=== PATIENT | male | born 1955 | race African-American/Black ===

== ENCOUNTER → 2016-08-04 | Outpatient (CLI) | payer OTHER ==
[2016-08-04 09:34] LABS: Aty Lym Flag Slight; CH 29.2; HCT 46.3 % (39.0-53.0); HDW 2.29; HGB 14.1 gm/dL (13.0-17.5); Hypochromasia Slight; MCH 28.8 pg (25.0-35.0); MCHC 30.4 g/dL (31.0-37.0); MCV 94.6 fL (80.0-100.0); Mean Platelet Volume 6.5; RDW 13.7 % (11.5-15.5); WBC 4.7 k/uL (3.8-10.6); WBC (Perox) 4.77
[2016-08-04 09:47] LABS: Add Differential Manual Differential
[2016-08-04 09:51] LABS: Manual Review Performed; Nucleated Red Blood Cells 0 /100 WBC (0-0); Target Cells Present; Total Cells Counted 100
[2016-08-04 09:54] LABS: ALT 39 U/L (21-72); AST 23 U/L (17-59); Alkaline Phosphatase 141 U/L (38-126); Anion Gap 10 mmol/L; Blood Urea Nitrogen 10 mg/dL (9-20); Calcium 9.6 mg/dL (8.4-10.2); Carbon Dioxide 29 mmol/L (22-30); Chloride 103 mmol/L (98-107); Glucose 56 mg/dL (74-99); Non-African American GFR(MDRD) >60 (>60 ml/min/1.73 sqM); Potassium 4.9 mmol/L (3.5-5.1); Sodium 142 mmol/L (137-145); Total Bilirubin 0.8 mg/dL (0.2-1.3); Total Protein 7.5 g/dL (6.3-8.2)
[2016-08-06 15:36] LABS: HCV Qualitative Result DETECTED (Not detected)
== END ==
LOC: LABWHC1 08:34
PROVIDERS: ATTEND Physician Assistant
DX: B18.2 Chronic viral hepatitis C (principal)
CPT/HCPCS: 36415; 80053; 85025; 87522; 87902

== ENCOUNTER 2016-10-14 07:48 | Emergency (ER) | payer OTHER ==
[2016-10-14 07:52] VITALS: BP 129/84; PULSE 80; RESP 20; TEMP 98
[2016-10-14] MEDS ORDERED: HYDROcodone/APAP 5-325MG 1 EACH TAB PO STA (08:14)
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
== END 2016-10-14 08:27 | disposition home or self-care (01) ==
LOC: EC 07:48
DX: G89.29 Other chronic pain (principal); M54.5 Low back pain; F17.200 Nicotine dependence, unspecified, uncomplicated; Z79.899 Other long term (current) drug therapy; Z88.0 Allergy status to penicillin
CPT/HCPCS: 99283

== ENCOUNTER 2017-01-09 10:46 | Emergency (ER) | payer OTHER ==
[2017-01-09 10:53] VITALS: BP 123/87; PULSE 84; RESP 18; TEMP 97
[2017-01-09] MEDS ORDERED: HYDROcodone/APAP 7.5-325MG 1 EACH TAB PO ONE (11:31)
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
== END 2017-01-09 11:57 | disposition home or self-care (01) ==
LOC: EC 10:46
DX: G89.29 Other chronic pain (principal); M54.5 Low back pain; F17.200 Nicotine dependence, unspecified, uncomplicated; Z96.653 Presence of artificial knee joint, bilateral; Z88.0 Allergy status to penicillin; Z88.6 Allergy status to analgesic agent
CPT/HCPCS: 99283

== ENCOUNTER 2017-02-06 16:09 | Emergency (ER) | payer OTHER ==
[2017-02-06] MEDS ORDERED: HYDROcodone/APAP 7.5-325MG 1 EACH TAB PO STA (17:32)
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
[2017-02-06 17:56] VITALS: BP 127/76; PULSE 69; RESP 16; TEMP 98.4
== END 2017-02-06 17:54 | disposition home or self-care (01) ==
LOC: EC 16:09
DX: G89.29 Other chronic pain (principal); M54.9 Dorsalgia, unspecified; F17.200 Nicotine dependence, unspecified, uncomplicated; Z88.0 Allergy status to penicillin; Z88.6 Allergy status to analgesic agent
CPT/HCPCS: 99283

== ENCOUNTER → 2017-02-18 | Outpatient (CLI) | payer OTHER ==
[2017-02-18 11:18] LABS: Aty Lym Flag Slight; CH 28.9; CHCM 30.6; HCT 47.2 % (39.0-53.0); HDW 2.32; HGB 14.6 gm/dL (13.0-17.5); Hypochromasia Slight; MCH 29.5 pg (25.0-35.0); MCV 95.2 fL (80.0-100.0); Mean Platelet Volume 6.6; RBC 4.96 m/uL (4.30-5.90); WBC 3.9 k/uL (3.8-10.6); WBC (Perox) 4.08
[2017-02-18 11:36] LABS: ALT 33 U/L (21-72); AST 25 U/L (17-59); Alkaline Phosphatase 104 U/L (38-126); Anion Gap 9 mmol/L; Blood Urea Nitrogen 12 mg/dL (9-20); Calcium 10.1 mg/dL (8.4-10.2); Carbon Dioxide 29 mmol/L (22-30); Chloride 105 mmol/L (98-107); Glucose 89 mg/dL (74-99); Non-African American GFR(MDRD) >60 (>60 ml/min/1.73 sqM); Potassium 5.1 mmol/L (3.5-5.1); Sodium 143 mmol/L (137-145); Total Bilirubin 0.8 mg/dL (0.2-1.3)
[2017-02-18 14:27] LABS: Add Differential Manual Differential
[2017-02-18 14:31] LABS: Nucleated Red Blood Cells 0 /100 WBC (0-0); Target Cells Present; Total Cells Counted 100
== END | disposition home or self-care (01) ==
LOC: LABWHC1 10:37
PROVIDERS: ATTEND Internal Medicine Gastroenterology
DX: B18.2 Chronic viral hepatitis C (principal)
CPT/HCPCS: 36415; 80053; 85025

== ENCOUNTER → 2017-03-03 | Outpatient (CLI) | payer OTHER ==
--- NOTE | 2017-03-03 20:23 | MR ---
EXAMINATION TYPE: MR lumbar spine wo con DATE OF EXAM: 03/03/2017 COMPARISON: NONE HISTORY: Back pain TECHNIQUE: T1 and T2 axial and sagittal images of the lumbar spine are submitted. FINDINGS: There is no abnormal signal seen within the visualized spinal cord or paraspinal soft tissu es. There are numerous gallstones. Simple bilateral. Renal cysts are noted. At L1-2 there is no disc herniation or canal stenosis. No foraminal encroachment. At L2-3 there is broad-based central disc protrusion with annular tear. Mild bilateral foraminal encr oachment. Facet arthropathy and mild effacement of thecal sac. At L3-4 there is degenerative disc disease with facet arthropathy and circumferential disc bulging bu t no canal stenosis. Mild bilateral foraminal encroachment. At L4-5 there is marked facet arthropathy with minimal grade 1 anterolisthesis. There is ligamentum f lavum hypertrophy which results in lateral compression of the thecal sac. Disc bulging results in mod erate bilateral foraminal encroachment. There is mild to moderate central stenosis. Could not exclude a tiny synovial cyst involving the left facet joint measuring 3 mm. At L5-S1 there is degenerative disc disease with facet arthropathy but no canal stenosis. Mild centra l disc bulging and mild bilateral foraminal encroachment. IMPRESSION: 1. Cholelithiasis. 2. Multilevel degenerative disc disease and facet arthropathy. Broad-based central disc protrusion L2 -L3 results in moderate effacement of thecal sac and bilateral foraminal encroachment. 3. Grade 1 anterolisthesis L4 and L5 secondary to severe facet arthropathy. Disc bulging and hypertro phic changes result in mild to moderate central stenosis and bilateral foraminal encroachment. 4. Central disc bulging L5-S1 with mild effacement of thecal sac and mild bilateral foraminal encroac hment. EXAMINATION TYPE: MR cervical spine wo con DATE OF EXAM: 03/03/2017 COMPARISON: 08/02/2015 HISTORY: Neck pain TECHNIQUE: T1 sagittal and coronal, T2 sagittal, and gradient echo axial views of the cervical spine are submitted. FINDINGS: The cranial cervical junction is preserved. There is no abnormal signal seen within the sp inal cord or paraspinal soft tissues. 2 cm left neck nodule likely related to thyroid nodule. Additio nal right-sided thyroid nodules noted. At C2-3 there is mild degenerative disc disease. No disc herniation or canal stenosis. Mild posterior spondylosis. At C3-4 there is uncovertebral joint hypertrophy bilaterally with posterior disc protrusion and mild effacement of thecal sac. There is facet arthropathy with moderate bilateral foraminal encroachment a nd borderline canal stenosis. At C4-5 there is moderate degenerative disc disease with bilateral uncovertebral joint hypertrophy. C entral and left paracentral broad-based disc protrusion with mild central stenosis and effacement of thecal sac. Uncovertebral joint hypertrophy and facet arthropathy result in moderate to severe bilate ral foraminal encroachment. At C5-6 there is broad-based posterior disc bulging or protrusion with mild effacement of thecal sac. There is facet arthropathy and uncovertebral joint hypertrophy with moderate to severe bilateral for aminal encroachment. At C6-7 there is loss of disc material to his level. There appears be an anterior fusion. There is so me central endplate spurring with mild anterior thecal sac compression At C7-T1 there is no disc herniation or canal stenosis. No foraminal encroachment. IMPRESSION: 1. 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 Multilevel uncovertebral karl int hypertrophy and facet arthropathy contribute to significant bilateral foraminal encroachment at m ultiple levels as discussed above. 2. Stable broad-based disc bulging or protrusion C5-C6 with mild effacement of thecal sac. 3. Stable central and left paracentral broad-based disc protrusion with mild central stenosis C4-C5. 4. Stable posterior disc protrusion C3-C4 with hypertrophic changes contributing to borderline canal stenosis. 5. Multiple bilateral thyroid nodules the largest on the left measuring approximately 2 cm. Correlate with thyroid ultrasound.
== END | disposition home or self-care (01) ==
LOC: RADMRIMAIN 19:04
PROVIDERS: ATTEND Psychiatry & Neurology Pain Medicine
DX: M48.02 Spinal stenosis, cervical region (principal); M48.061 Spinal stenosis, lumbar region without neurogenic claudication; M50.21 Other cervical disc displacement, high cervical region; M51.27 Other intervertebral disc displacement, lumbosacral region; M43.16 Spondylolisthesis, lumbar region; M50.323 Other cervical disc degeneration at C6-C7 level; M51.36 Other intervertebral disc degeneration, lumbar region; M46.92 Unspecified inflammatory spondylopathy, cervical region; M46.96 Unspecified inflammatory spondylopathy, lumbar region; M43.22 Fusion of spine, cervical region
CPT/HCPCS: 72141; 72148

== ENCOUNTER 2017-03-10 10:13 | Emergency (ER) | payer OTHER ==
[2017-03-10 10:20] VITALS: BP 161/93; PULSE 84; RESP 18; TEMP 97.8
[2017-03-10] MEDS ORDERED: HYDROcodone/APAP 5-325MG 1 EACH TAB PO STA (10:44)
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
== END 2017-03-10 11:18 | disposition home or self-care (01) ==
LOC: EC 10:13
DX: G89.29 Other chronic pain (principal); M54.5 Low back pain; F17.200 Nicotine dependence, unspecified, uncomplicated; Z88.0 Allergy status to penicillin; Z88.6 Allergy status to analgesic agent
CPT/HCPCS: 99283

== ENCOUNTER 2017-04-20 08:20 | Emergency (ER) | payer OTHER ==
[2017-04-20 08:24] VITALS: BP 128/83; PULSE 95; RESP 20; TEMP 97.7
--- NOTE | 2017-04-20 08:51 | XR ---
EXAMINATION TYPE: XR wrist complete RT DATE OF EXAM: 04/20/2017 CLINICAL HISTORY: Lateral wrist pain for 2 days. TECHNIQUE: Frontal, lateral, scaphoid, and oblique images of the right wrist are obtained. COMPARISON: None FINDINGS: There is no acute fracture/dislocation evident in the right wrist. The joint spaces in th e right wrist appear within normal limits. The overlying soft tissue appears unremarkable. IMPRESSION: Images of right wrist are felt within normal limits.
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
== END 2017-04-20 09:13 | disposition home or self-care (01) ==
LOC: EC 08:20
DX: M77.9 Enthesopathy, unspecified (principal); G56.01 Carpal tunnel syndrome, right upper limb; F17.200 Nicotine dependence, unspecified, uncomplicated; Z88.0 Allergy status to penicillin; Z88.6 Allergy status to analgesic agent
CPT/HCPCS: 99283

== ENCOUNTER 2017-06-10 08:41 | Emergency (ER) | payer OTHER ==
[2017-06-10 09:16] VITALS: BP 141/75; PULSE 75; RESP 18; TEMP 97.3
[2017-06-10] MEDS ORDERED: LIDOCAINE 5% PATCH TOPICAL STA (09:59)
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
== END 2017-06-10 10:26 | disposition home or self-care (01) ==
LOC: EC 08:41
DX: M54.5 Low back pain (principal); G89.29 Other chronic pain; F17.200 Nicotine dependence, unspecified, uncomplicated; Z88.0 Allergy status to penicillin; Z88.6 Allergy status to analgesic agent
CPT/HCPCS: 99282

== ENCOUNTER 2017-07-11 08:45 | Emergency (ER) | payer OTHER ==
[2017-07-11 08:51] VITALS: BP 117/81; PULSE 85; RESP 18; TEMP 97.1
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
== END 2017-07-11 09:45 | disposition home or self-care (01) ==
LOC: EC 08:45
DX: G89.29 Other chronic pain (principal); M54.5 Low back pain; F17.200 Nicotine dependence, unspecified, uncomplicated; Z88.0 Allergy status to penicillin; Z88.6 Allergy status to analgesic agent
CPT/HCPCS: 99283

== ENCOUNTER → 2017-07-12 | Outpatient (CLI) | payer OTHER ==
[2017-07-12 09:38] LABS: HGB 14.4 gm/dL (13.0-17.5); MCH 28.4 pg (25.0-35.0); MCHC 30.6 g/dL (31.0-37.0); MCV 92.7 fL (80.0-100.0); Mean Platelet Volume 6.6; Platelet Count 271 k/uL (150-450); RBC 5.07 m/uL (4.30-5.90); RDW 13.6 % (11.5-15.5); WBC 4.8 k/uL (3.8-10.6)
[2017-07-12 10:01] LABS: ALT 28 U/L (21-72); AST 29 U/L (17-59); Alkaline Phosphatase 99 U/L (38-126); Anion Gap 9 mmol/L; Blood Urea Nitrogen 13 mg/dL (9-20); Calcium 9.8 mg/dL (8.4-10.2); Carbon Dioxide 30 mmol/L (22-30); Chloride 102 mmol/L (98-107); Cholesterol 153 mg/dL (<200); Glucose 83 mg/dL (74-99); HDL Cholesterol 54 mg/dL (40-60); LDL Cholesterol,Calculated 88 mg/dL (0-99); Potassium 4.7 mmol/L (3.5-5.1); Sodium 141 mmol/L (137-145); Total Bilirubin 0.7 mg/dL (0.2-1.3); Total Protein 7.4 g/dL (6.3-8.2); Triglycerides 55 mg/dL (<150)
[2017-07-12 10:30] LABS: Prostate Specific Antigen 0.22 ng/mL (0.00-4.00)
[2017-07-12 11:31] LABS: Lymphocytes # (M) 3.26 k/uL (1.0-4.8); Monocytes # (M) 0.77 k/uL (0-1.0); Neutrophils # (M) 0.82 k/uL (1.3-7.7); Neutrophils % (M) 17 %; Nucleated Red Blood Cells 0 /100 WBC (0-0); Total Cells Counted 200
[2017-07-12 11:32] LABS: Anisocytosis (M) Present; Poikilocytosis (M) Present; Target Cells Present
== END | disposition home or self-care (01) ==
LOC: LABWHC1 08:53
PROVIDERS: ATTEND Family Medicine
DX: M54.5 Low back pain (principal); F17.210 Nicotine dependence, cigarettes, uncomplicated
CPT/HCPCS: 36415; 80053; 80061; 84153; 85025

== ENCOUNTER 2017-07-17 11:44 | Emergency (ER) | payer OTHER ==
[2017-07-17 11:50] VITALS: BP 109/78; PULSE 103; RESP 20; TEMP 98.6
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
== END 2017-07-17 12:34 | disposition home or self-care (01) ==
LOC: EC 11:44
DX: G89.29 Other chronic pain (principal); M54.5 Low back pain; F17.200 Nicotine dependence, unspecified, uncomplicated; Z76.0 Encounter for issue of repeat prescription; Z88.0 Allergy status to penicillin; Z88.6 Allergy status to analgesic agent
CPT/HCPCS: 99283

== ENCOUNTER 2017-08-19 06:58 | Emergency (ER) | payer OTHER ==
[2017-08-19 07:05] VITALS: BP 126/83; PULSE 71; RESP 16; TEMP 97.3
[2017-08-19] MEDS ORDERED: HYDROcodone/APAP 10-325MG 1 EACH TAB PO ONE (07:26)
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
== END 2017-08-19 07:40 | disposition home or self-care (01) ==
LOC: EC 06:58
DX: G89.29 Other chronic pain (principal); M54.5 Low back pain; F17.200 Nicotine dependence, unspecified, uncomplicated; Z88.0 Allergy status to penicillin; Z88.6 Allergy status to analgesic agent
CPT/HCPCS: 99283

== ENCOUNTER 2017-09-14 08:54 | Emergency (ER) | payer OTHER ==
[2017-09-14 09:01] VITALS: BP 112/79; PULSE 104; RESP 18; TEMP 97.4
[2017-09-14] MEDS ORDERED: HYDROcodone/APAP 5-325MG 1 EACH TAB PO STA (09:23)
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
== END 2017-09-14 09:37 | disposition home or self-care (01) ==
LOC: EC 08:54
DX: G89.29 Other chronic pain (principal); M54.5 Low back pain; F17.200 Nicotine dependence, unspecified, uncomplicated; Z89.612 Acquired absence of left leg above knee; Z88.0 Allergy status to penicillin; Z88.6 Allergy status to analgesic agent
CPT/HCPCS: 99283

== ENCOUNTER 2017-09-21 08:21 | Emergency (ER) | payer OTHER ==
[2017-09-21 08:31] VITALS: BP 111/82; PULSE 84; RESP 18; TEMP 97.7
[2017-09-21] MEDS ORDERED: HYDROcodone/APAP 10-325MG 1 EACH TAB PO ONE (08:37)
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
== END 2017-09-21 08:56 | disposition home or self-care (01) ==
LOC: EC 08:21
DX: G89.29 Other chronic pain (principal); M54.5 Low back pain; F17.200 Nicotine dependence, unspecified, uncomplicated; Z88.0 Allergy status to penicillin; Z88.6 Allergy status to analgesic agent
CPT/HCPCS: 99283

== ENCOUNTER → 2017-11-07 | Outpatient (CLI) | payer OTHER ==
[2017-11-07 10:42] LABS: HGB 13.6 gm/dL (13.0-17.5); MCH 28.8 pg (25.0-35.0); MCHC 31.6 g/dL (31.0-37.0); MCV 91.1 fL (80.0-100.0); Mean Platelet Volume 6.2; Platelet Count 288 k/uL (150-450); RBC 4.72 m/uL (4.30-5.90); RDW 13.6 % (11.5-15.5); WBC 4.3 k/uL (3.8-10.6)
[2017-11-07 10:56] LABS: ALT 33 U/L (21-72); AST 36 U/L (17-59); Albumin 4.3 g/dL (3.5-5.0); Alkaline Phosphatase 108 U/L (38-126); Anion Gap 10 mmol/L; Blood Urea Nitrogen 9 mg/dL (9-20); Calcium 9.6 mg/dL (8.4-10.2); Carbon Dioxide 30 mmol/L (22-30); Chloride 102 mmol/L (98-107); Glucose 88 mg/dL (74-99); Potassium 5.6 mmol/L (3.5-5.1); Sodium 142 mmol/L (137-145); Total Bilirubin 0.7 mg/dL (0.2-1.3); Total Protein 7.6 g/dL (6.3-8.2)
[2017-11-07 11:28] LABS: Eosinophils # (M) 0.04 k/uL (0-0.7); Lymphocytes # (M) 2.58 k/uL (1.0-4.8); Monocytes # (M) 0.56 k/uL (0-1.0); Neutrophils # (M) 1.03 k/uL (1.3-7.7); Neutrophils % (M) 24 %; Nucleated Red Blood Cells 0 /100 WBC (0-0); Plasma Cells # (M) 0.09 k/uL (0); Plasma Cells % 2 %; Total Cells Counted 100
== END | disposition home or self-care (01) ==
LOC: LABWHC1 10:13
PROVIDERS: ATTEND Internal Medicine Gastroenterology
DX: B18.2 Chronic viral hepatitis C (principal)
CPT/HCPCS: 36415; 80053; 82172; 82247; 82977; 83010; 83883; 84460; 85025

== ENCOUNTER → 2017-11-21 | Outpatient (CLI) | payer OTHER ==
[2017-11-21 13:36] LABS: INR 1.2 (<1.2); Prothrombin Time 11.1 sec (9.0-12.0)
== END | disposition home or self-care (01) ==
LOC: LABWHC1 11:58
PROVIDERS: ATTEND Internal Medicine Gastroenterology
DX: B18.2 Chronic viral hepatitis C (principal)
CPT/HCPCS: 36415; 85610; 87522

== ENCOUNTER 2018-01-01 15:36 | Emergency (ER) | payer OTHER ==
[2018-01-01 15:53] VITALS: BP 148/100; PULSE 71; RESP 18; TEMP 98.5
[2018-01-01] MEDS ORDERED: HYDROcodone/APAP 7.5-325MG 1 EACH TAB PO ONE (16:58)
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
== END 2018-01-01 17:15 | disposition home or self-care (01) ==
LOC: EC 15:36
DX: G89.29 Other chronic pain (principal); M54.5 Low back pain; I25.10 Atherosclerotic heart disease of native coronary artery without angina pectoris; F17.200 Nicotine dependence, unspecified, uncomplicated; Z88.0 Allergy status to penicillin; Z88.6 Allergy status to analgesic agent
CPT/HCPCS: 99283

== ENCOUNTER 2018-02-26 08:15 | Emergency (ER) | payer OTHER ==
[2018-02-26 08:20] VITALS: BP 127/90; PULSE 99; RESP 18; TEMP 98
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
--- NOTE | 2018-02-26 09:00 | XR ---
EXAMINATION TYPE: XR shoulder complete LT , 3 VIEWS DATE OF EXAM ORDERED: 02/26/2018 HISTORY: Pain. COMPARISON: None. FINDINGS: There are hypertrophic changes in the left AC joint. No fracture or dislocation is seen. IMPRESSION: 1. NO ACUTE OSSEOUS LESION. 2. DEGENERATIVE CHANGE, LEFT AC JOINT.
== END 2018-02-26 09:26 | disposition home or self-care (01) ==
LOC: EC 08:15
DX: M25.512 Pain in left shoulder (principal); F17.200 Nicotine dependence, unspecified, uncomplicated; Z88.0 Allergy status to penicillin; Z88.6 Allergy status to analgesic agent
CPT/HCPCS: 99283

== ENCOUNTER → 2018-03-21 | Outpatient (CLI) | payer OTHER ==
[2018-03-21 08:17] LABS: HCT 46.3 % (39.0-53.0); HGB 14.1 gm/dL (13.0-17.5); Hypochromasia Slight; MCH 28.7 pg (25.0-35.0); MCHC 30.5 g/dL (31.0-37.0); MCV 94.2 fL (80.0-100.0); Mean Platelet Volume 6.5; Platelet Count 334 k/uL (150-450); RBC 4.92 m/uL (4.30-5.90); RDW 13.4 % (11.5-15.5); WBC 4.5 k/uL (3.8-10.6)
[2018-03-21 08:18] LABS: ALT 44 U/L (21-72); AST 57 U/L (17-59); Albumin 3.7 g/dL (3.5-5.0); Alkaline Phosphatase 282 U/L (38-126); Anion Gap 4 mmol/L; Blood Urea Nitrogen 11 mg/dL (9-20); Calcium 9.7 mg/dL (8.4-10.2); Carbon Dioxide 31 mmol/L (22-30); Chloride 104 mmol/L (98-107); Glucose 95 mg/dL (74-99); Potassium 5.6 mmol/L (3.5-5.1); Sodium 139 mmol/L (137-145); Total Bilirubin 0.5 mg/dL (0.2-1.3); Total Protein 7.3 g/dL (6.3-8.2)
--- NOTE | 2018-03-21 08:52 | US ---
EXAMINATION TYPE: US liver DATE OF EXAM: 03/21/2018 COMPARISON: CT abdomen pelvis dated 07/24/2015 and abdominal ultrasound dated 12/13/2015. CLINICAL HISTORY: B18.2 CHR VIRAL HEP C. EXAM MEASUREMENTS: Liver Length: 14.6 cm Gallbladder Wall: 0.2 cm CBD: 1.0 cm Right Kidney: 10.9 x 6.0 x 3.9 cm Pancreas: dilated pancreatic duct at 2.7mm within the pancreatic body; dilated CBD in pancreatic hea d Liver: There is a slightly coarsened echotexture of the hepatic parenchyma without lobulated contour. Gallbladder: multiple shadowing stones with some mobility into fundus, but stones still seen in neck in LLD position Evidence for sonographic Vela's sign: no CBD: abnormally dilated throughout its course Right Kidney: multiple cysts with largest complex cyst in lower pole = 2.1 x 2.5 x 2.4cm. Containing thin internal septations IMPRESSION: 1. Progressive dilatation of the common bile duct and pancreatic duct raising suspicion for underlyin g pancreatic. Three-phase CT abdomen (pancreatic mass protocol) is recommended to evaluate for pancre atic head mass. Or alternatively MRCP with and without contrast could be utilized to assess for both pancreatic mass and etiology of common bile duct dilation. 2. Cholelithiasis. 3. Right renal cysts the largest in the lower pole measuring 2.5 cm with thin septations for which co ntinued surveillance is recommended. This measured 2.1 cm on the prior CT dated 07/24/2015. 4. Findings of early hepatocellular disease. No findings to suggest current cirrhosis. A Yellow level critical message alert has been initiated for Yoli Chandler MD via the [employer] Critical Results System on 03/21/2018 8:49 AM. This message alert has been sent to Yoli Chandler MD via the preferences provided by the clinician for the receipt of Radiology Critical Findings. Mess age ID [id number].
[2018-03-21 10:21] LABS: Eosinophils # (M) 0.05 k/uL (0-0.7); Lymphocytes # (M) 2.21 k/uL (1.0-4.8); Monocytes # (M) 0.81 k/uL (0-1.0); Neutrophils # (M) 1.44 k/uL (1.3-7.7); Neutrophils % (M) 32 %; Nucleated Red Blood Cells 0 /100 WBC (0-0); Total Cells Counted 100
== END | disposition home or self-care (01) ==
LOC: RADUSWWP 07:05
PROVIDERS: ATTEND Internal Medicine Gastroenterology
DX: K80.20 Calculus of gallbladder without cholecystitis without obstruction (principal); N28.1 Cyst of kidney, acquired; K83.8 Other specified diseases of biliary tract; B18.2 Chronic viral hepatitis C
CPT/HCPCS: 36415; 76705; 80053; 82105; 85025

== ENCOUNTER → 2018-03-23 | Outpatient (CLI) | payer OTHER ==
--- NOTE | 2018-03-23 09:36 | MR ---
EXAMINATION TYPE: MR shoulder LT wo con DATE OF EXAM: 03/23/2018 COMPARISON: Radiographs 02/26/2018 HISTORY: 62-year-old male Pain left shoulder TECHNIQUE: Multiplanar, multisequence imaging of the left shoulder is performed without contrast. The technologist notes that the scan was restarted multiple times due to persistent coughing. FINDINGS: Motion limited exam. Mild heterogeneous signal within the intracapsular portion of the long head biceps tendon. The extrac apsular portion remains appropriately situated along the bicipital groove. There is heterogeneity of the subscapularis tendon with some partial articular sided tearing of the s uperior half fibers. The majority of the subscapularis tendon remains intact. There is diffuse heterogeneity of both supraspinatus and infraspinatus tendons. There is bursal sided fraying of the infraspinatus tendon and bursal sided tearing at the junction of the supraspinatus an d infraspinatus tendons measuring 1.7 cm AP and 2.5 cm long located directly below the acromion, prox imal to the footprint. This causes significant thinning of the tendon at this level. Located just anteriorly, there is suggestion of a 1.7 x 1.5 cm multilocular ganglion that has develop ed along the subacromial bursa. No retracted, full-thickness tear is identified at this time. Additional mild effusion within the subacromial/subdeltoid bursa. No atrophy of the rotator cuff musc ulature. Moderate to severe degenerative joint space narrowing and marginal spurring at the acromial clavicula r joint. Some reactive subchondral marrow signal changes are present and inferior spurring has mass e ffect on to the underlying myotendinous junction of the supraspinatus. No discrete labral tear given nonarthrographic technique and no paralabral cyst. Mild diffuse thinnin g of glenohumeral joint articular cartilage. No significant joint effusion. No Hill-Sachs deformity or os acromiale. Mild patchy red marrow hyperplasia is present contributing in the setting of anemia, smoking, and chr onic disease. IMPRESSION: 1. Diffuse rotator cuff tendinosis. There is bursal sided fraying of the supraspinatus tendon and pro minent thinning of the cuff at the junction of the supraspinatus and infraspinatus tendons secondary to bursal sided tearing measuring 1.7 cm AP and 2.5 cm long located directly below the acromion, prox imal to the footprint. No retracted full-thickness tear at this time. 2. Some partial articular sided tearing of some of the superior subscapularis tendon fibers. The modesto rity of the subscapularis tendon remains intact. 3. No rotator cuff muscle atrophy. 4. 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 5. Mild subacromial/subdeltoid bursal effusion with a 1.7 x 1.5 cm multilocular ganglion cyst that velasco s developed along the anterior margin of the supraspinatus tendon.
== END | disposition home or self-care (01) ==
LOC: RADMRIMAIN 07:15
PROVIDERS: ATTEND Internal Medicine
DX: M19.012 Primary osteoarthritis, left shoulder (principal); M75.112 Incomplete rotator cuff tear or rupture of left shoulder, not specified as traumatic; M67.412 Ganglion, left shoulder; M75.82 Other shoulder lesions, left shoulder

== ENCOUNTER 2018-04-21 11:53 | Emergency (ER) | payer OTHER ==
[2018-04-21 11:59] VITALS: BP 146/90; PULSE 83; RESP 18; TEMP 97.5
[2018-04-21] MEDS ORDERED: KETOROLAC 60 MG/2 ML VIAL IM STA (12:24)
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
--- NOTE | 2018-04-21 13:04 | XR ---
EXAMINATION TYPE: XR lumbar spine 2 or 3V DATE OF EXAM: 04/21/2018 CLINICAL HISTORY: pain TECHNIQUE: Three views of the lumbar spine are submitted. COMPARISON: None. FINDINGS: There are 5 lumbar type vertebral bodies identified. The lumbar spine shows satisfactory alignment w ithout evidence of acute fracture or dislocation. Vertebral body heights are within normal limits. Mild degenerative disc space narrowing. Mild lower lumbar facet joint arthropathy. The overlying sof t tissue appears unremarkable. Multiple right-sided renal calculi noted. IMPRESSION: No acute fracture or dislocation is seen in the lumbar spine. ICD 10 NO FRACTURE, INITIAL EVALUATION
== END 2018-04-21 13:45 | disposition home or self-care (01) ==
LOC: EC 11:53
DX: M54.5 Low back pain (principal); F17.200 Nicotine dependence, unspecified, uncomplicated; Z88.0 Allergy status to penicillin; Z88.6 Allergy status to analgesic agent
CPT/HCPCS: 72100; 96372; 99284

== ENCOUNTER → 2018-08-22 | Outpatient (CLI) | payer OTHER ==
[2018-08-22 17:56] LABS: HCT 43.3 % (39.0-53.0); HGB 13.6 gm/dL (13.0-17.5); Hypochromasia Slight; MCH 29.1 pg (25.0-35.0); MCHC 31.3 g/dL (31.0-37.0); MCV 92.9 fL (80.0-100.0); Mean Platelet Volume 6.8; Platelet Count 256 k/uL (150-450); RBC 4.66 m/uL (4.30-5.90); RDW 14.5 % (11.5-15.5); WBC 4.6 k/uL (3.8-10.6)
[2018-08-22 18:10] LABS: Anion Gap 5 mmol/L; Blood Urea Nitrogen 8 mg/dL (9-20); Carbon Dioxide 31 mmol/L (22-30); Chloride 105 mmol/L (98-107); Potassium 5.1 mmol/L (3.5-5.1); Sodium 141 mmol/L (137-145)
== END ==
LOC: LABPAT 16:32
PROVIDERS: ATTEND Internal Medicine Interventional Cardiology
DX: Z01.812 Encounter for preprocedural laboratory examination (principal); I49.8 Other specified cardiac arrhythmias; I42.9 Cardiomyopathy, unspecified
CPT/HCPCS: 36415; 80051; 82565; 84520; 85027

== ENCOUNTER 2018-08-24 11:02 | Day surgery (SDC) | payer OTHER ==
[2018-08-22 09:22] VITALS: BMI 21.9
[~2018-08-24 11:02] MED LIST: ALPRAZolam 0.25 MG TAB PO PRN; ALPRAZolam 0.5 MG TAB PO PRN; ASPIRIN 325 MG TAB PO STA; ATORVASTATIN 80 MG TAB PO STA; NITROGLYCERIN SL TABS 0.4 MG TAB SUBLINGUAL PRN; SODIUM CHLORIDE 0.9% 1,000 ML in EMPTY BAG 1 BAG IV ONE
[2018-08-24] MEDS ORDERED: SODIUM CHLORIDE 0.9% 1,000 ML IV ONE (11:19)
[2018-08-24 11:35] VITALS: RESP 16; TEMP 98.1
[2018-08-24] MEDS ORDERED: fentaNYL (PF) 50 MCG/ML 2 ML AMP IV ONE (12:29)
[2018-08-24] MEDS ORDERED: LIDOCAINE 1% INJ 10MG/ML (20 ML MDV) SQ ONE (12:34)
[2018-08-24] MEDS: MIDAZOLAM 2 MG/2 ML VIAL IV ONE ×2 (12:34→12:37)
[2018-08-24] MEDS ORDERED: VERAPAMIL SYRINGE (5 MG/10 ML) INTRAARTER ONE (12:36)
[2018-08-24] MEDS ORDERED: IOPAMIDOL-370 125ML BTL INJ ONE (12:52)
[2018-08-24] MEDS ORDERED: RX INFO: IV CONTRAST WAS GIVEN 1 EACH MISC MISCELLANE PRN (13:05)
[2018-08-24] MEDS ORDERED: HYDROcodone/APAP 7.5-325MG 1 EACH TAB PO PRN (13:06)
[2018-08-24] MEDS ORDERED: SODIUM CHLORIDE 0.9% 1,000 ML IV SCH (13:15)
[2018-08-24] MEDS ORDERED: METOPROLOL TARTRATE 50 MG TAB ONE (13:18)
--- NOTE | 2018-08-24 13:33 | CC ---
CARDIAC CATHETERIZATION REPORT Mr. Nation is a 63-year-old male with a history of smoking and no prior documented history of coronary artery disease who was evaluated to undergo surgical intervention and was found to have frequent atrial arrhythmia with evidence of cardiomyopathy and inferior wall defect. In view of that, recommendations were made regarding cardiac catheterization. The procedure as well as the risks and complications were discussed with the patient who is in full understanding and agreement. PROCEDURE: Patient was brought to the laboratory chemist in a fasting semi-sedated state after receiving fentanyl and Benadryl and achieving moderate conscious sedated state. Using Xylocaine anesthesia in the Seldinger technique, a 6-Cambodian sheath was introduced in the right radial artery. Selective right and left coronary angiography were performed using 5- Cambodian 3.5 bend right Caro and 4 bend left Caro catheters. Multiple views of the coronary artery including hemiaxial views were obtained. Following that 5-Cambodian tight pigtail catheter was introduced in the left ventricle and a 30-degree CARREON view of the left ventricle was obtained. Following that, the catheter and sheaths were removed. Hemostasis was obtained with deployment of a TR band. There was no immediate complication. Patient was returned to his room in stable condition. Of note, the patient received 4000 units of intravenous heparin as well as intra-arterial verapamil. FINDINGS: LEFT MAIN: This is a large-sized vessel bifurcating left circumflex and left anterior descending artery. Left main coronary artery has no evidence of significant obstructive coronary artery disease. LEFT ANTERIOR DESCENDING ARTERY: This is a large-sized vessel reaching to the apex with a wraparound apex segment giving rise to 2 small diagonal branches. Left anterior descending artery as well as branches have no evidence of obstructive coronary artery disease. LEFT CIRCUMFLEX: This is a nondominant vessel giving rise to 2 obtuse marginal branches of moderate caliber. The left circumflex has no evidence of high-grade stenosis. RIGHT CORONARY ARTERY: This is a dominant vessel giving rise to a small PDA. The right coronary artery and its branches have no evidence of obstructive coronary artery disease. LEFT VENTRICULOGRAM: The left ventriculogram was performed in 30-degree CARREON view and revealed normal left ventricular size with moderate global hypokinesis. Estimated ejection fraction 40% to 45%. A significant arrhythmia was noted. HEMODYNAMICS: There was no gradient across the aortic valve. The left ventricular end- diastolic pressure was 12 mmHg. CONCLUSION: 1. Normal coronary arteries. 2. Moderately impaired left ventricular systolic function. The evaluation of left ventricular systolic function could be affected by the arrhythmia. RECOMMENDATION: In view of finding anatomy, I recommend continue medical therapy with increase in his beta yenny and depending on his progress, further recommendation will be made. Those findings and recommendation were discussed with the patient and his family are in full understanding and agreement. Duration of procedure is 20 minutes. NURIA / LILLIE: [id number] /
[2018-08-24] MEDS ORDERED: GABAPENTIN 300 MG CAP PO SCH (16:00)
[2018-08-24 17:33] VITALS: BP 107/72; PULSE 98
[2018-08-24] MEDS ORDERED: BACLOFEN 10 MG TAB PO SCH (21:00)
[2018-08-24] MEDS ORDERED: METOPROLOL TARTRATE 25 MG TAB PO SCH (21:00)
== END 2018-08-24 18:30 | disposition home or self-care (01) ==
LOC: CATHCVL 11:02
PROVIDERS: ATTEND Internal Medicine Interventional Cardiology
DX: I42.9 Cardiomyopathy, unspecified (principal); I49.8 Other specified cardiac arrhythmias; Z79.899 Other long term (current) drug therapy; F17.210 Nicotine dependence, cigarettes, uncomplicated; Z88.0 Allergy status to penicillin
CPT/HCPCS: 93458; C1894; C1769; J2250; J2001; J3010; J1644; Q9967

== ENCOUNTER → 2018-09-15 | Day surgery (SDC) | payer OTHER ==
[2018-08-21 12:45] VITALS: BMI 21.9
[~2018-09-15] MED LIST changes: -ALPRAZolam 0.25 MG TAB PO PRN; -ALPRAZolam 0.5 MG TAB PO PRN; -ASPIRIN 325 MG TAB PO STA; -ATORVASTATIN 80 MG TAB PO STA; +CLINDAMYCIN 900 MG in DEXTROSE 5% IN WATER 50 ML IVPB ONE; +DEXAMETHASONE SOD PHOSPHATE 10 MG/ML 1 ML VIAL IV ONE; +DEXAMETHASONE SOD PHOSPHATE 4 MG/ML 1 ML VIAL ONE; +EPINEPHrine 4 MG in SODIUM CHLORIDE 0.9% IRRIGATIO 3,000 ML IRRIGATION ONE; +HYDROcodone/APAP 7.5-325MG 1 EACH TAB PO ONE; +LACTATED RINGERS 1,000 ML IV ONE; +LACTATED RINGERS 1,000 ML IV SCH; +LIDOCAINE 1% 20 ML VIAL (10MG/ML) FOR IV START INTRADERMA ONE; +LIDOCAINE 1% INJ 10MG/ML (20 ML MDV) ONE; +MIDAZOLAM (PF) 2 MG/2 ML VIAL IV PRN; +MIDAZOLAM 2 MG/2 ML VIAL ONE; -NITROGLYCERIN SL TABS 0.4 MG TAB SUBLINGUAL PRN; +ONDANSETRON 4 MG/2 ML VIAL IVP ONE; +PHENYLEPHRINE-0.9% NACL SYG 1 MG/10 ML SYRINGE ONE; +PROPOFOL 10 MG/ML 20 ML VIAL IV ONE; +ROPIVACAINE 5 MG/ML 30 ML VIAL ONE; +SCOPOLAMINE 1.5MG/72HR PATCH TRANSDERM ONE; -SODIUM CHLORIDE 0.9% 1,000 ML in EMPTY BAG 1 BAG IV ONE; +SUCCINYLCHOLINE CHLORIDE 100 MG/5 ML SYR IV ONE; +fentaNYL (PF) 50 MCG/ML 2 ML AMP IV ONE; +fentaNYL (PF) 50 MCG/ML 2 ML AMP ONE
--- NOTE | 2018-09-15 12:17 | P.ONQ ---
Anesthesiology Proc Note - PNB - Peripheral Nerve Block Performed Left Interscalene Single Time Out Performed: Yes Procedure Start Time: 11:45 Procedure Stop Time: :55 Indication: Requested by physician Specifically requested for management of pain by DrFernando: Solis Hawthorne Sedation Type: Sedate with meaningful contact maintained Preparation: Sterile Prep Position: Supine Needle Types: Other (see comment) (PUJUNK) Needle Size: 50mm (2") Needle Gauge: 21 Technique: Ultrasound Injectate: 0.5% Ropivacaine (see comment for volume) (20 ml plus 4 mg Dexamethason) Blood Aspirated: No Pain Paresthesia on Injection Noted: No Resistance on Injection: Normal Events: Uneventful and Well Tolerated
[2018-09-15 13:42] VITALS: TEMP 97
[2018-09-15] MEDS: HYDROmorphone 0.5 MG/0.5 ML SYRINGE IVP PRN ×2 (14:32→14:40)
[2018-09-15 14:55] VITALS: RESP 17
[2018-09-15 15:12] VITALS: BP 124/78; PULSE 66
--- NOTE | 2018-09-15 17:00 | P.OP ---
Date of Procedure: 09/15/18 Procedure(s) Performed: left shoulder scope SAD PDCE labral debridement partial rct debridement (bursal and articular surface supra, articular superior border subscap) PREOPERATIVE DIAGNOSES: 1. Left shoulder impingement 2. Subacromial bursitis 3. Rotator cuff tendinopathy 4. Acromioclavicular osteoarthritis POSTOPERATIVE DIAGNOSES: 1. Left shoulder impingment with subacromial moderate-severe bursitis and subacromial adhesions 2. Superior labral degenerative/type I tear 3. Partial rotator cuff tear (supraspinatus and subscapularis, articular surface 2-3 mm depth; supraspinatus bursal side 2-3 mm depth) PROCEDURES PERFORMED: 1. Left shoulder arthroscopy with partial distal clavicle excision 2. Arthroscopic debridement superior labral degenerative tear and partial tear of rotator cuff 3. Arthroscopic lysis of adhesions subacromial space 4. Arthroscopic subacromial decompression ANESTHESIA: General plus interscalene block (given for post-operative pain management) ELECTRONIC TECHNICIAN: None COMPLICATIONS: None ESTIMATED BLOOD LOSS: 5 cc TOURNIQUET: None DISPOSITION: To post-anesthesia care unit INDICATIONS: Mónica is a 63 year old male with a history of pain in the left shoulder that has been resistant to conservative management. He has signs and symptoms consistent with a possible rotator cuff or labral etiology. There is mild impingement also noted on exam and findings consistent with this on MRI. At this point the patient has failed conservative management and I have advised a diagnostic arthroscopy with the plan to repair or optimize the condition of the shoulder if possible. I have explained the details of this surgery thoroughly and also explained the potential risks and complications. These are inclusive of, but not limited to: bleeding, infection, scarring, discomfort, blood vessel and nerve damage, stiffness, weakness, need for further surgery, failure to relieve symptoms, persistence or worsening of problems, , and other risks. The consent form has been signed. PROCEDURE: Appropriate consent was obtained from the patient, who was then taken to the operating room and placed in the supine position. General anesthesia was initiated and after confirmation of adequate anesthesia, the patients shoulder was examined. There was full passive range of motion. The shoulder was stable. Next, the patient was rotated into the lateral decubitus position and stabilized to the table with a wang bag and padded straps. Care was taken to make sure that all pressure points were adequately padded. Bear-hugger was used along with bilateral leg sequential compression devices. Prepping and draping was completed in the usual aseptic fashion using Duraprep. The patient received prophylactic intravenous antibiotics prior to incision. The shoulder was suspended from traction with 10 lbs. of weight in a position of 45 degrees abduction. Landmarks were outlined with a skin marking pen. Time out was called, confirming patients identity, side, procedure, and antibiotic administration. A spinal needle was inserted into the glenohumeral joint and fluid was administered to distend the joint. Good pressure was noted after 100 cc was administered. A posterior portal was created using an 11 blade and the arthroscopic canula, over a dull trocar, was carefully inserted into the joint. Arthroscopy then commenced. An anterior portal was inserted in the rotator interval area using inside-out technique. Biceps tendon was normal. Infraspinatus, supraspinatus, and teres minor attachments were normal. Subscapularis had a degenerative appearing superior border partial tear which was debrided using a shaver. Hyaline cartilage was noted to be normal with regard to both the glenoid and humeral head. Supraspinatus showed a partial tear on the articular surface, and with probing and removal of the loose fibers via a shaver this was noted to be 2-3 mm depth. A spinal needle was used to zari the location of the tear for inspection of the bursal side. Labrum showed evidence of moderate degenerative change superiorly. The superior labrum was debrided back to stable tissue using a shaver and the labrum had a significantly improved appearance once this was performed. Thorough probing of the labrum showed good attachment without evidence of peel back. Subscapularis recess and axillary recess were normal. No significant synovitis was seen. Normal capsular ligaments (SGHL, MGHL, IGHL) were seen. Attention was then directed to the subacromial space. The camera and instruments were redirected into the subacromial space and bursoscopy was performed. Significant bursitis was noted . A lateral portal was created using outside-in technique and the thickened bursal material was removed using a rotary shaver. The spinal needle was identified and the area was thoroughly inspected around the spinal needle . No evidence of full-thickness rotator cuff tear was seen, however, there was evidence of partial-thickness tearing within the bursa likely consistent with chronic impingement syndrome The bursal surface of the rotator cuff was fully visualized and found to be intact throughout, except for some very mild superficial fraying of the critical zone area, which was noted to be quite near the acromion. There was less than 5 mm of space available between the undersurface of the acromion and the rotator cuff. The undersurface of the acromion had minor frictional changes consistent with minor impingement syndrome. The underside of the anterior acromion was cleared of soft tissue using an arthroscopic radiofrequency ablator. As noted previously, there were mild frictional changes on the bursal side of the cuff. A limited subacromial decompression was performed using a nicole. Approximately 5 mm of material was removed from the anterior-inferior corner of the acromion. This resection was beveled upwards laterally, and carried medially to the AC joint. The distal clavicle appeared to have a contributing downward ridge at the margin of the acromioclavicular joint, and therefore this ridge of bone was removed using a nicole, amounting to proximally 5 mm of clavicle tissue. Subsequently, 4-0 Monocryl suture was used to close the portals. Steri- strips were applied as well as sterile dressing. The shoulder was then placed into a sling and the patient was transferred to recovery room in stable condition. Sponge and needle count were correct.
== END | disposition home or self-care (01) ==
LOC: OR 10:57
PROVIDERS: ATTEND Orthopaedic Surgery
DX: M75.112 Incomplete rotator cuff tear or rupture of left shoulder, not specified as traumatic (principal); M75.42 Impingement syndrome of left shoulder; S43.432A Superior glenoid labrum lesion of left shoulder, initial encounter; M75.02 Adhesive capsulitis of left shoulder; M19.012 Primary osteoarthritis, left shoulder; I10 Essential (primary) hypertension; M50.10 Cervical disc disorder with radiculopathy, unspecified cervical region; Z89.512 Acquired absence of left leg below knee; F17.200 Nicotine dependence, unspecified, uncomplicated; Z79.891 Long term (current) use of opiate analgesic; Z79.899 Other long term (current) drug therapy; Z88.0 Allergy status to penicillin; Z88.8 Allergy status to other drugs, medicaments and biological substances
CPT/HCPCS: 64415; 29823; 29824; 29826; J0171; J2250 ×2; J1100 ×2; J2405; J2001; J3010; J2795; J2370; J0330; J2704; J1170

== ENCOUNTER → 2018-11-10 | Outpatient (CLI) | payer OTHER ==
[2018-11-10 17:09] LABS: African American GFR (CKD) 116.4 (60.0-200.0); Albumin 4.1 g/dL (3.80-4.90); Albumin/Globulin Ratio 1.21 (1.60-3.17); Anion Gap 5.4 mmol/L (4.00-12.00); Calcium 9.5 mg/dL (8.7-10.3); Carbon Dioxide 28.6 mmol/L (21.6-31.8); Globulin 3.4 g/dL (1.6-3.3); Potassium 5.1 mmol/L (3.5-5.5); Total Bilirubin 0.7 mg/dL (0.3-1.2); Total Protein 7.5 g/dL (6.2-8.2)
== END | disposition home or self-care (01) ==
LOC: LABWHC1 09:10
PROVIDERS: ATTEND Physician Assistant
DX: Z51.81 Encounter for therapeutic drug level monitoring (principal); Z79.891 Long term (current) use of opiate analgesic
CPT/HCPCS: 36415; 80053

== ENCOUNTER → 2018-12-13 | Outpatient (CLI) | payer OTHER ==
--- NOTE | 2018-12-14 07:12 | US ---
EXAMINATION TYPE: US thyroid st tissue head/neck DATE OF EXAM: 12/13/2018 COMPARISON: MRI 2019 CLINICAL HISTORY: R93.8 Abnormal MRI images-thyroid cyst?. Left thyroid lesion seen on previous MRI GLAND SIZE: Right Lobe: 6.5 x 1.9 x 2.4 cm Overall Parenchyma: heterogenous Left Lobe: 5.9 x 3.2 x 2.2 cm Overall Parenchyma: heterogeneous Isthmus Thickness: 0.4 cm NODULES RIGHT: # of nodules measured on right: 3 1. 1.6 X 0.9 x 1.4 cm hypoechoic solid nodule at the upper pole with well-defined margins. This nod ule is wider than tall and shows intranodular vascularity. Prior size: no previous 2. 1.2 X 1.3 x 1.4 cm hypoechoic mixed nodule at the mid pole with well-defined margins. This nodule is wider than tall and shows intranodular vascularity. Prior size: no previous 3. 0.9 X 0.5 x 1.0 cm hypoechoic solid nodule at the lower pole with well-defined margins. This nodu le is wider than tall and shows intranodular vascularity. Prior size: no previous LEFT: # of nodules measured on left: 2 1. 1.1 X 0.5 x 0.9 cm hypoechoic solid nodule at the upper pole with well-defined margins. This nod ule is wider than tall and shows intranodular vascularity. Prior size: no previous 2. 3.9 X 2.8 x 2.3 cm hypoechoic mixed nodule at the mid pole with well-defined margins. This nodule is taller than wide and shows intranodular vascularity. Prior size: no previous ISTHMUS: # of nodules measured in the isthmus: 0 Bilateral neck scanned, no evidence of lymphadenopathy. IMPRESSION: Complex 3.9 cm left thyroid nodule for which fine-needle aspiration is recommended. Multiple addition al smaller nodules are seen bilaterally for which surveillance could be performed. Overall thyroid gl and is enlarged and heterogenous compatible with a multinodular goiter.
== END | disposition home or self-care (01) ==
LOC: RADUSWWP 16:15
PROVIDERS: ATTEND Internal Medicine
DX: E04.2 Nontoxic multinodular goiter (principal)
CPT/HCPCS: 76536

== ENCOUNTER 2019-02-08 08:58 | Emergency (ER) | payer OTHER ==
[2019-02-08] MEDS ORDERED: KETOROLAC 60 MG/2 ML VIAL IM STA (10:26)
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
--- NOTE | 2019-02-08 11:28 | XR ---
Lumbosacral spine HISTORY: Back pain, trauma 5 views of lumbosacral spine correlated to prior exam 04/21/2018 There is no interval change. Overlying bowel gas on the frontal exam. Multiple calcifications are lik yi present within the right kidney. No evident spondylolysis or spondylolisthesis. Bone mineralizati on, alignment, vertebral body height are unchanged. Mild loss of disc height L4-5 and L5-S1, minimal anterolisthesis grade 1 L4-5, retrolisthesis grade 1 L5-S1. There is multilevel spondylosis. Sclerosi s present in the posterior elements compatible with facet arthropathy. IMPRESSION: No acute fracture or subluxation. Degenerative disc disease and facet arthropathy.
[2019-02-08 12:16] VITALS: BP 132/56; PULSE 67; RESP 20; TEMP 98.6
== END 2019-02-08 12:15 | disposition home or self-care (01) ==
LOC: EC 08:58
DX: S30.0XXA Contusion of lower back and pelvis, initial encounter (principal); F17.200 Nicotine dependence, unspecified, uncomplicated; Z88.0 Allergy status to penicillin; Z88.6 Allergy status to analgesic agent; Z79.899 Other long term (current) drug therapy; Z89.512 Acquired absence of left leg below knee; W10.9XXA Fall (on) (from) unspecified stairs and steps, initial encounter; Y93.89 Activity, other specified
CPT/HCPCS: 72110; 99283; 96372; J1885

== ENCOUNTER → 2019-03-01 | Outpatient (CLI) | payer OTHER ==
[2019-03-01 10:07] LABS: Basophils # (A) 0.1 k/uL (0-0.2); Basophils % (A) 2 %; Eosinophils % (A) 1 %; HCT 42.9 % (39.0-53.0); HGB 13.1 gm/dL (13.0-17.5); Lymphocytes # (A) 1.1 k/uL (1.0-4.8); Lymphocytes % (A) 18 %; MCH 29.1 pg (25.0-35.0); MCHC 30.6 g/dL (31.0-37.0); MCV 95.3 fL (80.0-100.0); Mean Platelet Volume 6.4; Monocytes # (A) 0.3 k/uL (0-1.0); Monocytes % (A) 5 %; Neutrophils # (A) 4.5 k/uL (1.3-7.7); Neutrophils % (A) 73 %; Platelet Count 226 k/uL (150-450); WBC 6.1 k/uL (3.8-10.6)
[2019-03-01 18:08] LABS: African American GFR (CKD) 110.2 (60.0-200.0); Albumin 4.1 g/dL (3.80-4.90); Albumin/Globulin Ratio 1.37 (1.60-3.17); Anion Gap 7.7 mmol/L (4.00-12.00); Calcium 9.4 mg/dL (8.7-10.3); Carbon Dioxide 27.3 mmol/L (21.6-31.8); Potassium 4.8 mmol/L (3.5-5.5); Total Bilirubin 1.2 mg/dL (0.3-1.2); Total Protein 7.1 g/dL (6.2-8.2)
== END | disposition home or self-care (01) ==
LOC: LABWHC1 09:07
PROVIDERS: ATTEND Internal Medicine Gastroenterology
DX: B18.2 Chronic viral hepatitis C (principal)
CPT/HCPCS: 36415; 80053; 85025; 87522

== ENCOUNTER → 2019-05-24 | Outpatient (CLI) | payer OTHER ==
[2019-05-24 18:38] LABS: African American GFR (CKD) 116.4 (60.0-200.0); Albumin 4.2 g/dL (3.80-4.90); Albumin/Globulin Ratio 1.45 (1.60-3.17); Anion Gap 3.5 mmol/L (4.00-12.00); BUN/Creat Ratio 12.86 Ratio (12.00-20.00); Calcium 9.4 mg/dL (8.7-10.3); Carbon Dioxide 30.5 mmol/L (21.6-31.8); Globulin 2.9 g/dL (1.6-3.3); Non-African American GFR(CKD) 100.4 (60.0-200.0); Potassium 4.8 mmol/L (3.5-5.5); Total Bilirubin 0.6 mg/dL (0.3-1.2); Total Protein 7.1 g/dL (6.2-8.2)
== END | disposition home or self-care (01) ==
LOC: LABWHC1 13:31
PROVIDERS: ATTEND Physician Assistant
DX: Z51.81 Encounter for therapeutic drug level monitoring (principal); Z79.891 Long term (current) use of opiate analgesic
CPT/HCPCS: 36415; 80053

== ENCOUNTER → 2019-06-04 | Outpatient (CLI) | payer OTHER ==
--- NOTE | 2019-06-04 15:36 | MR ---
EXAMINATION TYPE: MR cspine/lspine wo con DATE OF EXAM: 06/04/2019 COMPARISON: Prior exam dated 08/12/2018 HISTORY: Neck and low back pain TECHNIQUE: Multiplanar, multisequence imaging of the lumbar and cervical spine is performed without I V contrast. FINDINGS: Cervical spine MRI: Segmentation anomalies present at C6-7 as on prior. There is multilevel spondylos is. Loss of disc height and signal is greatest at C4-5, C7-T1. Cervical cord signal is maintained. C3-4 shows bilateral foraminal encroachment due to uncovertebral joint hypertrophy and facet arthropa thy, similar changes present at C4-5 where there is posterior extension endplate disc complex as on p rior causing mild anterior mass effect on the thecal sac. No significant spinal stenosis. C5-6 shows bilateral foraminal encroachment, no evident disc herniation or significant central stenos is. C6-7 shows a small posterior extension of endplate causing mild anterior mass effect on the thecal sa c. Cystic foci are present within the thyroid likely represent colloid cysts. IMPRESSION: Degenerative disc disease, congenital anomaly, multilevel foraminal encroachment are renzo lar to prior exam Lumbar MRI: Sagittal images of the lumbar spine show vertebral body heights and alignment to appear n early stable, minimal anterior listhesis grade 1 L4-5, retrolisthesis grade 1 L5-S1. The intervertebr al discs demonstrate some loss of disc height and signal especially L5-S1 with disc desiccation and d egenerative disc disease, there are endplate marrow signal changes, multilevel spondylosis. The conus is at L1 and is unremarkable as on prior. Axial images show no significant spinal stenosis. L5-S1 shows a small posterior disc bulge possibly c ontacting the proximal S1 nerve roots, anterior thecal sac. Lateral extension endplate disc complex e ncroaches somewhat on the foramina right greater than left. L4-5 shows facet arthropathy with hypertrophy ligamentum flavum causing posterior lateral mass effect on the thecal sac. Circumferential disc bulge extends posteriorly causes anterior mass effect on the thecal sac. Lateral extension causing bilateral foraminal encroachment contributed by the listhesis. Synovial cyst again noted posteriorly to the right midline posterior to the L5 vertebral body L3-4 shows a small posterior broad-based disc bulge causing slight anterior mass effect on the thecal sac. L2-3: Posterior disc bulge causes minimal anterior mass effect on the thecal sac, increased signal at the posterior aspect of this may represent small annular tear. No significant spinal stenosis or for aminal encroachment. L1-2: Unremarkable There are T2 bright foci within the kidneys as on prior exam. Abdominal aorta measures approximately 3 cm. Low signal foci thought likely present within the gallbladder as on prior. IMPRESSION: Degenerative disc disease, facet arthropathy and foraminal encroachment as described renzo lar to prior exam. Abdominal aortic ectasia, cholelithiasis.
== END | disposition home or self-care (01) ==
LOC: RADMRIMAIN 08:39
PROVIDERS: ATTEND Physician Assistant
DX: M50.30 Other cervical disc degeneration, unspecified cervical region (principal); M51.37 Other intervertebral disc degeneration, lumbosacral region; M46.96 Unspecified inflammatory spondylopathy, lumbar region
CPT/HCPCS: 72141; 72148

== ENCOUNTER → 2019-08-30 | Outpatient (CLI) | payer OTHER ==
[2019-08-30 09:01] LABS: HCT 44.6 % (39.0-53.0); HGB 14.1 gm/dL (13.0-17.5); MCH 29.3 pg (25.0-35.0); MCHC 31.6 g/dL (31.0-37.0); MCV 92.7 fL (80.0-100.0); Mean Platelet Volume 7.2; Neutrophils % (A) 38 %; Platelet Count 288 k/uL (150-450); RBC 4.81 m/uL (4.30-5.90); RDW 13.7 % (11.5-15.5); WBC 4.1 k/uL (3.8-10.6)
[2019-08-30 09:02] LABS: Basophils # (A) 0.1 k/uL (0-0.2); Basophils % (A) 1 %; Eosinophils # (A) 0.1 k/uL (0-0.7); Eosinophils % (A) 2 %; Lymphocytes # (A) 1.9 k/uL (1.0-4.8); Lymphocytes % (A) 47 %; Monocytes # (A) 0.4 k/uL (0-1.0); Monocytes % (A) 9 %; Neutrophils # (A) 1.5 k/uL (1.3-7.7)
[2019-08-30 15:46] LABS: African American GFR (CKD) 115.6 (60.0-200.0); Albumin 4.2 g/dL (3.80-4.90); Albumin/Globulin Ratio 1.31 (1.60-3.17); Anion Gap 7.7 mmol/L (4.00-12.00); BUN/Creat Ratio 14.29 Ratio (12.00-20.00); Carbon Dioxide 29.3 mmol/L (21.6-31.8); Globulin 3.2 g/dL (1.6-3.3); Non-African American GFR(CKD) 99.7 (60.0-200.0); Potassium 5.3 mmol/L (3.5-5.5); Total Bilirubin 0.7 mg/dL (0.2-1.2); Total Protein 7.4 g/dL (6.2-8.2)
[2019-08-30 15:50] LABS: Alpha Fetoprotein, Tumor Mkr <2.5 ng/mL (0.0-7.9)
== END | disposition home or self-care (01) ==
LOC: LABWHC1 08:03
PROVIDERS: ATTEND Internal Medicine Gastroenterology
DX: B18.2 Chronic viral hepatitis C (principal)
CPT/HCPCS: 36415; 80053; 82105; 85025; 87522

== ENCOUNTER → 2019-11-01 | Outpatient (CLI) | payer OTHER ==
[2019-11-01 17:05] LABS: African American GFR (CKD) 115.6 (60.0-200.0); Albumin 4.4 g/dL (3.80-4.90); Albumin/Globulin Ratio 1.52 (1.60-3.17); Anion Gap 3.7 mmol/L (4.00-12.00); BUN/Creat Ratio 15.71 Ratio (12.00-20.00); Calcium 9.9 mg/dL (8.7-10.3); Carbon Dioxide 28.3 mmol/L (21.6-31.8); Globulin 2.9 g/dL (1.6-3.3); Non-African American GFR(CKD) 99.7 (60.0-200.0); Potassium 5.2 mmol/L (3.5-5.5); Total Bilirubin 0.9 mg/dL (0.3-1.2); Total Protein 7.3 g/dL (6.2-8.2)
== END | disposition home or self-care (01) ==
LOC: LABWHC1 08:46
PROVIDERS: ATTEND Internal Medicine Interventional Cardiology
DX: I42.8 Other cardiomyopathies (principal)
CPT/HCPCS: 36415; 80053

== ENCOUNTER 2020-01-13 08:38 | Emergency (ER) | payer OTHER ==
[2020-01-13 08:43] VITALS: TEMP 98.3
[2020-01-13] MEDS ORDERED: KETOROLAC 15 MG/ML 1 ML VIAL IVP STA (09:13)
[2020-01-13] MEDS ORDERED: HYDROmorphone 1 MG/ML 1 ML SYRINGE IVP STA (09:13)
[2020-01-13] MEDS ORDERED: methylPREDNISolone SOD SUCCI 125 MG/2 ML VIAL IV STA (09:14)
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
--- NOTE | 2020-01-13 09:52 | XR ---
EXAMINATION TYPE: XR lumbosacral spine min 4V DATE OF EXAM: 01/13/2020 CLINICAL HISTORY: Low back pain. TECHNIQUE: Frontal, lateral, and oblique images of the lumbar spine are obtained. COMPARISON: Lumbar spine x-ray February 08, 2019. MRI lumbar spine June 04, 2019 FINDINGS: There are 5 lumbar type vertebral bodies redemonstrated. The lumbar spine demonstrates sl ight grade 1 anterolisthesis L4 and L5 with mild disc space narrowing at this level. Vertebral body h eights and disk space heights otherwise remain normal limits. The oblique images appear within norm al limits. Facet arthropathy lower lumbar spine redemonstrated. The overlying soft tissue appears un remarkable. IMPRESSION: As above. No significant change from prior studies.
[2020-01-13 10:41] VITALS: BP 114/80; PULSE 67; RESP 17
== END 2020-01-13 10:41 | disposition home or self-care (01) ==
LOC: EC 08:38
DX: G89.29 Other chronic pain (principal); M54.5 Low back pain; F17.200 Nicotine dependence, unspecified, uncomplicated; Z88.0 Allergy status to penicillin; Z88.6 Allergy status to analgesic agent; Z89.512 Acquired absence of left leg below knee
CPT/HCPCS: 72110; 96374; 96375; 99284

== ENCOUNTER → 2020-01-21 | Outpatient (CLI) | payer OTHER ==
[2020-01-21 09:13] LABS: Basophils % (A) 1 %; Eosinophils # (A) 0.1 k/uL (0-0.7); Eosinophils % (A) 3 %; HCT 45.9 % (39.0-53.0); HGB 14.2 gm/dL (13.0-17.5); Hypochromasia Slight; Lymphocytes # (A) 1.8 k/uL (1.0-4.8); Lymphocytes % (A) 39 %; MCH 29.1 pg (25.0-35.0); MCV 93.9 fL (80.0-100.0); Mean Platelet Volume 6.9; Monocytes # (A) 0.5 k/uL (0-1.0); Monocytes % (A) 11 %; Neutrophils % (A) 43 %; Platelet Count 289 k/uL (150-450); RBC 4.89 m/uL (4.30-5.90); RDW 13.9 % (11.5-15.5); WBC 4.6 k/uL (3.8-10.6)
[2020-01-21 18:02] LABS: Alpha Fetoprotein, Tumor Mkr <2.5 ng/mL (0.0-7.9)
[2020-01-21 18:16] LABS: African American GFR (CKD) 115.6 (60.0-200.0); Albumin 4.5 g/dL (3.80-4.90); Albumin/Globulin Ratio 1.41 (1.60-3.17); Anion Gap 6.6 mmol/L (4.00-12.00); BUN/Creat Ratio 8.57 Ratio (12.00-20.00); Calcium 9.8 mg/dL (8.7-10.3); Carbon Dioxide 28.4 mmol/L (21.6-31.8); Globulin 3.2 g/dL (1.6-3.3); Non-African American GFR(CKD) 99.7 (60.0-200.0); Potassium 4.3 mmol/L (3.5-5.5); Total Bilirubin 1.3 mg/dL (0.2-1.2); Total Protein 7.7 g/dL (6.2-8.2)
== END | disposition home or self-care (01) ==
LOC: LABWHC1 08:28
PROVIDERS: ATTEND Internal Medicine Gastroenterology
DX: B18.2 Chronic viral hepatitis C (principal)
CPT/HCPCS: 36415; 80053; 82105; 85025; 87522

== ENCOUNTER → 2020-03-11 | Outpatient (CLI) | payer OTHER ==
--- NOTE | 2020-03-11 08:29 | US ---
EXAMINATION TYPE: US liver DATE OF EXAM: 03/11/2020 COMPARISON: Ultrasound 03/21/2018 CLINICAL HISTORY: 64-year-old male K74.0 Hepatic fibrosis. Abnormal labs TECHNIQUE: Multiple sonographic images of the right upper quadrant are obtained. FINDINGS: EXAM MEASUREMENTS: Liver Length: 13.6 cm Gallbladder Wall: 0.3 cm CBD: 0.6 cm Right Kidney: 11.7 x 4.1 x 5.2 cm Pancreas: Majority of the pancreas is visualized and shows no gross abnormality by ultrasound. Liver: Appeared wnl Gallbladder: Lumen filled with gallstones, similar to previous Evidence for sonographic Vela's sign: No CBD: wnl Right Kidney: 2 cysts, larger one lower pole with thin septation and measuring 2.6 x 2.8 x 3.1 cm, v ague slightly hypoechoic area mid pole measuring 1.2 x 0.6 x 1.1 cm should be reassessed at follow-up . No hydronephrosis. Proximal aorta: Ectatic at 2.6 cm. IMPRESSION: 1. The gallbladder remains packed with gallstones. No ancillary findings of acute cholecystitis at th is time. 2. Bile duct measures borderline in caliber at 6 mm versus 10 mm on 2018. This may be normal for maykel ent's age. Correlate with alkaline phosphatase and bilirubin levels. 3. A vague 1.2 cm hypoechoic area within the right renal midpole could be technical. Six-month follow -up ultrasound to reassess this area and exclude the possibility of a developing solid mass.
== END | disposition home or self-care (01) ==
LOC: RADUSWWP 07:33
PROVIDERS: ATTEND Internal Medicine Gastroenterology
DX: K80.20 Calculus of gallbladder without cholecystitis without obstruction (principal); K83.8 Other specified diseases of biliary tract; R93.421 Abnormal radiologic findings on diagnostic imaging of right kidney
CPT/HCPCS: 76705

== ENCOUNTER 2020-05-12 07:32 | Emergency (ER) | payer OTHER ==
[2020-05-12 07:37] VITALS: BP 140/92; PULSE 84; RESP 18; TEMP 98.2
[2020-05-12] MEDS ORDERED: ACET/COD 300 MG/30 MG STARTER PACK 6 TAB BTL PO STA (08:02)
[2020-05-12] MEDS ORDERED: KETOROLAC 15 MG/ML 1 ML VIAL IM STA (08:02)
[2020-05-12] MEDS ORDERED: HYDROcodone/APAP 5-325MG 1 EACH TAB PO STA (08:02)
[2020-05-12] MEDS ORDERED: ORPHENADRINE 30 MG/ML 2 ML VIAL IM STA (08:02)
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
== END 2020-05-12 08:34 | disposition home or self-care (01) ==
LOC: EC 07:32
DX: G89.29 Other chronic pain (principal); M54.5 Low back pain; F17.200 Nicotine dependence, unspecified, uncomplicated; Z88.0 Allergy status to penicillin; Z88.6 Allergy status to analgesic agent; Z89.512 Acquired absence of left leg below knee
CPT/HCPCS: 99283; 96372 ×2; J2360; J1885

== ENCOUNTER → 2020-06-02 | Outpatient (CLI) | payer OTHER ==
[2020-06-02 15:33] LABS: African American GFR (CKD) 109.4 (60.0-200.0); Albumin 4.4 g/dL (3.80-4.90); Albumin/Globulin Ratio 1.42 (1.60-3.17); BUN/Creat Ratio 11.25 Ratio (12.00-20.00); Calcium 9.7 mg/dL (8.7-10.3); Globulin 3.1 g/dL (1.6-3.3); Non-African American GFR(CKD) 94.4 (60.0-200.0); Potassium 5.4 mmol/L (3.5-5.5); Total Bilirubin 0.8 mg/dL (0.2-1.2); Total Protein 7.5 g/dL (6.2-8.2)
== END | disposition home or self-care (01) ==
LOC: LABWHC1 08:27
PROVIDERS: ATTEND Physician Assistant
DX: Z51.81 Encounter for therapeutic drug level monitoring (principal); Z79.891 Long term (current) use of opiate analgesic
CPT/HCPCS: 36415; 80053

== ENCOUNTER 2020-06-10 13:03 | Emergency (ER) | payer OTHER ==
[2020-06-10 13:07] VITALS: BP 134/84; PULSE 99; RESP 18; TEMP 98.2
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
--- NOTE | 2020-06-10 14:05 | CT ---
EXAMINATION TYPE: CT lumbar spine wo con DATE OF EXAM: 06/10/2020 1:57 PM COMPARISON: X-ray 01/13/2020 HISTORY: Fall, back pain CT DLP: 627.5 mGycm Automated exposure control for dose reduction was used. Unenhanced CT of the lumbar spine was performed. Bone and soft tissue window settings are submitted as well as coronal and sagittal reconstructions. There is mild hypertrophic and degenerative changes. Assessment spinal canal limited due to resolutio n and artifact. L1-L2: Normal disc space height. No disc herniation protrusion or central stenosis. No facet joint arthropathy. No evidence for foraminal encroachment. L2-L3: Diffuse disc bulging with hypertrophic change of the facets and ligamentum flavum. There is ef facement of thecal sac and bilateral foraminal encroachment and probable canal stenosis. Could not ex clude a small extruded disc fragment extending posterior to the L2 vertebral body inferiorly. Recomme nd MRI. L3-L4: Diffuse disc bulging with facet arthropathy and ligamentum flavum hypertrophy. Findings suspic ious for canal stenosis with bilateral foraminal encroachment. L4-L5: Grade 1 anterolisthesis L4 on L5 advanced facet arthropathy. No complete pars defect. There is sclerosis involving the pars interarticularis. Broad-based disc protrusion with facet arthropathy an d ligament flavum contribute to moderate to severe canal stenosis and bilateral foraminal encroachmen t. L5-S1: Broad-based disc protrusion with effacement of the exiting nerve roots. Facet arthropathy is s een. Suspected bilateral foraminal encroachment. Vascular calcification of the aorta. No obvious renal calcification. Lung bases clear. IMPRESSION: 1. Multilevel disc bulging or protrusions as discussed above with suspected multilevel foraminal encr oachment and canal stenosis most marked at L4-L5. Grade 1 anterolisthesis L4 on L5. 2. Disc bulging L2-L3. There is a small focal area of density posterior to the lower margin of the L2 segment and a extruded disc fragment cannot be excluded. Given the limitation of the exam MRI is rec ommended.
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
== END 2020-06-10 14:28 | disposition home or self-care (01) ==
LOC: EC 13:03
DX: M54.5 Low back pain (principal); M25.512 Pain in left shoulder; I25.10 Atherosclerotic heart disease of native coronary artery without angina pectoris; M19.012 Primary osteoarthritis, left shoulder; F17.200 Nicotine dependence, unspecified, uncomplicated; Z88.0 Allergy status to penicillin; Z88.6 Allergy status to analgesic agent; Z89.512 Acquired absence of left leg below knee; W00.0XXA Fall on same level due to ice and snow, initial encounter
CPT/HCPCS: 72131; 99284

== ENCOUNTER → 2020-07-31 | Outpatient (CLI) | payer MEDICARE, OTHER ==
[2020-07-31 22:06] LABS: HCT 44.8 % (39.6-50.0); HGB 14.3 g/dL (13.0-17.0); MCH 29.5 pg (27.0-32.0); MCHC 31.9 g/dL (32.0-37.0); MCV 92.6 fL (80.0-97.0); Mean Platelet Volume 10.2 fL (9.5-12.2); Platelet Count 278 X 10*3/uL (140-440); RBC 4.84 X 10*6/uL (4.40-5.60); WBC 5.18 X 10*3/uL (4.50-10.00)
[2020-08-01 03:47] LABS: African American GFR (CKD) 108.6 (60.0-200.0); Albumin 4.6 g/dL (3.80-4.90); Albumin/Globulin Ratio 1.53 (1.60-3.17); Anion Gap 10.4 mmol/L (4.00-12.00); Carbon Dioxide 25.6 mmol/L (21.6-31.8); Non-African American GFR(CKD) 93.7 (60.0-200.0); Potassium 5.3 mmol/L (3.5-5.5); Total Bilirubin 0.9 mg/dL (0.2-1.2); Total Protein 7.6 g/dL (6.2-8.2)
== END | disposition home or self-care (01) ==
LOC: LABWHC1 11:48
PROVIDERS: ATTEND Internal Medicine Gastroenterology
DX: K74.60 Unspecified cirrhosis of liver (principal)
CPT/HCPCS: 36415; 80053; 82105; 85027

== ENCOUNTER → 2020-08-22 | Outpatient (CLI) | payer OTHER ==
[2020-08-22 14:35] LABS: HCT 43.7 % (39.6-50.0); HGB 13.8 g/dL (13.0-17.0); MCH 29.5 pg (27.0-32.0); MCHC 31.6 g/dL (32.0-37.0); MCV 93.4 fL (80.0-97.0); Mean Platelet Volume 9.4 fL (9.5-12.2); Platelet Count 298 X 10*3/uL (140-440); RBC 4.68 X 10*6/uL (4.40-5.60); RDW 15.7 % (11.5-14.5); WBC 4.64 X 10*3/uL (4.50-10.00)
[2020-08-22 17:58] LABS: African American GFR (CKD) 108.6 (60.0-200.0); Albumin 4.4 g/dL (3.80-4.90); Albumin/Globulin Ratio 1.52 (1.60-3.17); Anion Gap 6.1 mmol/L (4.00-12.00); BUN/Creat Ratio 7.5 Ratio (12.00-20.00); Calcium 9.6 mg/dL (8.7-10.3); Carbon Dioxide 29.9 mmol/L (21.6-31.8); Globulin 2.9 g/dL (1.6-3.3); Non-African American GFR(CKD) 93.7 (60.0-200.0); Potassium 4.4 mmol/L (3.5-5.5); Total Bilirubin 0.8 mg/dL (0.3-1.2); Total Protein 7.3 g/dL (6.2-8.2)
== END | disposition home or self-care (01) ==
LOC: LABWHC1 09:22
PROVIDERS: ATTEND Internal Medicine Gastroenterology
DX: K74.60 Unspecified cirrhosis of liver (principal)
CPT/HCPCS: 36415; 80053; 82105; 85027

== ENCOUNTER → 2020-09-05 | Outpatient (CLI) | payer MEDICARE, OTHER ==
--- NOTE | 2020-09-08 09:17 | MR ---
EXAMINATION TYPE: MR isabela/lsfrank wo con DATE OF EXAM: 09/05/2020 COMPARISON: 06/04/2019 HISTORY: 65-year-old male M54.2, Cervicalgia, low back pain TECHNIQUE: Multiplanar, multisequence imaging of the cervical followed by the lumbar spine is perform ed without IV contrast. FINDINGS: CERVICAL SPINE: No craniocervical junction abnormality, predental space widening, or prevertebral soft tissue swellin g. Mild multilevel degenerative disc disease with desiccated bulging discs. There are discussed by compl ex is in scattered ligamentum flavum thickening. Scattered facet and uncovertebral joint arthropathy is also present. There is bony ankylosis across C6/C7. Trace grade 1 retrolisthesis at C3-C4 and C4-C5. Otherwise, remaining alignment is maintained. At C2-C3, facet arthropathy. Left-sided uncovertebral joint arthropathy. Changes result in mild-to-mo derate left neuroforaminal stenosis without canal stenosis. At C3-C4, facet and uncovertebral joint arthropathy resulting in mild bilateral neuroforaminal stenos is. There is disc osteophyte complex and mild ligamentum flavum thickening contributing to mild narro wing of the spinal canal. At C4-C5, facet and uncovertebral joint arthropathy. Severe left and moderate right neuroforaminal st enosis. Disc osteophyte complex and grade 1 retrolisthesis as well as ligamentum flavum thickening. M ild narrowing of the spinal canal with slight abutment of the ventral cord. At C5-C6, some ligamentum flavum thickening and disc osteophyte complex with facet and uncovertebral joint arthropathy. There is moderate bilateral neural foraminal stenosis. No significant canal stenos is. At the fused C6-C7 level, there is posterior osteophytic ridging impressing on the ventral thecal sac but not contributing to any significant spinal canal stenosis or there is no significant neuroforami nal stenosis. At C7-T1, uncovertebral joint and facet arthropathy with mild posterior disc bulge. No significant sp inal canal stenosis. There is moderate left greater than right neuroforaminal stenosis. Normal course, caliber, and signal intensity of the cervical spinal cord. Multiple underlying thyroid nodules, largest on the left measures at least 2.4 cm. However, this appe ars smaller from prior exam where it measured up to 3.8 cm. Refer to sagittal image 4. LUMBAR SPINE: Vertebral body heights are preserved. Advanced hypertrophic facet arthropathy mid to lower lumbar spine, specially at L4-L5. Grade 1 anterolisthesis L4-L5 and trace grade 1 retrolisthesis L2-L3 are unchanged. Mild multilevel degenerative disc disease with desiccated and bulging discs. Tiny posterior annular f issure L2-L3 is similar. Conus medullaris is normal. No suspicious bone marrow replacement. At T12-L1, no canal or foraminal stenosis. At L1-L2, no canal or foraminal stenosis. At L2-L3, facet arthropathy with trace grade 1 retrolisthesis and mild bulging disc with posterior an nular fissure. There is impression on the ventral thecal sac without significant spinal canal stenosi s. Minimal inferior foraminal narrowing on both sides. At L3-L4, bulging disc with hypertrophic facet arthropathy. Changes result in mild right minimal infe rior left neural foraminal narrowing. No significant spinal canal stenosis. At L4-L5, advanced severe hypertrophic facet arthropathy with ligamentum flavum thickening, disc bulg e, grade 1 anterolisthesis. Changes result in mild area of the spinal canal, progressed from 0. Moderate right neuroforaminal stenosis slightly progressed. Ilvm-ju-[id number] stenosis of the left also slightly progressed. At L5-S1, posterior disc protrusion disc material appears to abut the traversing right S1 nerve root, preferred to sagittal image 10, unchanged from prior. Facet arthropathy. No significant spinal canal stenosis. There is mild bilateral neural foraminal narrowing. Proximal abdominal aorta appears aneurysmal at 3.4 cm. COMBINED IMPRESSION: CERVICAL SPINE: 1. Mild to moderate multilevel degenerative disc disease. Multilevel hypertrophic facet and uncoverte bral joint arthropathy. Similar trace grade 1 retrolisthesis at C3-C4 and C4-C5. 2. Mild multilevel narrowing of the spinal canal. No high-grade canal compromise or cord compression. 3. Variable moderate neural foraminal stenoses as outlined above severe on the left at C4-C5. 4. Redemonstration of either degenerative, inflammatory, or posttraumatic bony ankylosis across the C 6-C7 level. 5. Findings suspected to represent multinodular goiter. Clinically correlate. LUMBAR SPINE: 5. Redemonstrated mild multilevel degenerative disc disease. Severe hypertrophic facet arthropathy pa rticularly at L4-L5 with grade 1 anterolisthesis also again seen. 6. Mild narrowing of the spinal canal here at L4-L5 shows slight progression. There is no high-grade canal compromise. 7. Trace grade 1 retrolisthesis at L2-L3 with mild disc bulge and tiny posterior annular fissure also remain unchanged. 8. Variable mild neuroforaminal stenoses as outlined above, though moderate right and [id number] e left at L4-L5, slightly progressed. 9. Disc material appears to abut the traversing right S1 nerve root at the L5-S1 level, unchanged. 10. There appears to be aneurysm of the proximal abdominal aorta at 3.4 cm.
== END | disposition home or self-care (01) ==
LOC: RADMRIMAIN 11:38
PROVIDERS: ATTEND Physician Assistant
DX: M50.321 Other cervical disc degeneration at C4-C5 level (principal); M47.812 Spondylosis without myelopathy or radiculopathy, cervical region; M48.02 Spinal stenosis, cervical region; M43.12 Spondylolisthesis, cervical region; M99.71 Connective tissue and disc stenosis of intervertebral foramina of cervical region; M51.36 Other intervertebral disc degeneration, lumbar region; M43.16 Spondylolisthesis, lumbar region; M47.816 Spondylosis without myelopathy or radiculopathy, lumbar region; M48.061 Spinal stenosis, lumbar region without neurogenic claudication
CPT/HCPCS: 72141; 72148

== ENCOUNTER 2020-09-26 07:38 | Emergency (ER) | payer MEDICARE, OTHER ==
[2020-09-26 07:44] VITALS: BP 145/94; PULSE 78; RESP 18; TEMP 98.2
[2020-09-26] MEDS ORDERED: KETOROLAC 15 MG/ML 1 ML VIAL IM STA (08:01)
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
--- NOTE | 2020-09-26 08:35 | XR ---
EXAMINATION TYPE: XR lumbosacral spine min 4V DATE OF EXAM: 09/26/2020 CLINICAL HISTORY: Low back pain after fall injury. TECHNIQUE: Frontal, lateral, and oblique images of the lumbar spine are obtained. COMPARISON: Lumbar spine x-ray January 13, 2020 FINDINGS: There are 5 lumbar type vertebral bodies redemonstrated. Persistent slight grade 1 anterol isthesis L4 on L5. Mild disc space narrowing L4-L5 level. Vertebral body heights are maintained. No a cute displaced fracture. Oblique images are within normal limits. Overlying soft tissue is unremarkab le. IMPRESSION: No acute fracture or dislocation is seen in the lumbar spine. No significant change from prior.
== END 2020-09-26 09:10 | disposition home or self-care (01) ==
LOC: EC 07:38
DX: G89.29 Other chronic pain (principal); M54.5 Low back pain; I25.10 Atherosclerotic heart disease of native coronary artery without angina pectoris; F17.200 Nicotine dependence, unspecified, uncomplicated; Z88.0 Allergy status to penicillin; W11.XXXA Fall on and from ladder, initial encounter
CPT/HCPCS: 72110; 99283; 96372; J1885

== ENCOUNTER → 2020-12-09 | Outpatient (CLI) | payer MEDICARE, OTHER ==
--- NOTE | 2020-12-09 14:41 | XR ---
EXAMINATION TYPE: XR chest 2V DATE OF EXAM: 12/09/2020 COMPARISON: NONE HISTORY: Shortness of breath TECHNIQUE: Frontal and lateral views of the chest are obtained. FINDINGS: There is no focal air space opacity, pleural effusion, or pneumothorax seen. The cardiac silhouette size is within normal limits. Surgical clips are present in the right axillary region. T he aorta is dense. The osseous structures are intact. IMPRESSION: No acute cardiopulmonary process.
== END | disposition home or self-care (01) ==
LOC: RADXRMAIN 11:25
PROVIDERS: ATTEND Internal Medicine
DX: R06.02 Shortness of breath (principal)
CPT/HCPCS: 71046

== ENCOUNTER → 2021-01-13 | Outpatient (CLI) | payer MEDICARE, OTHER ==
[2021-01-13 08:56] LABS: Basophils # (A) 0.1 k/uL (0-0.2); Basophils % (A) 1 %; Eosinophils # (A) 0.1 k/uL (0-0.7); Eosinophils % (A) 2 %; HCT 44.9 % (39.0-53.0); HGB 14.2 gm/dL (13.0-17.5); Hypochromasia Slight; Lymphocytes # (A) 1.8 k/uL (1.0-4.8); Lymphocytes % (A) 43 %; MCH 29.7 pg (25.0-35.0); MCHC 31.6 g/dL (31.0-37.0); MCV 94.2 fL (80.0-100.0); Mean Platelet Volume 7.5; Monocytes # (A) 0.3 k/uL (0-1.0); Monocytes % (A) 6 %; Neutrophils # (A) 1.9 k/uL (1.3-7.7); Neutrophils % (A) 44 %; Platelet Count 268 k/uL (150-450); RBC 4.77 m/uL (4.30-5.90); WBC 4.2 k/uL (3.8-10.6)
== END | disposition home or self-care (01) ==
LOC: LABPAT 08:17
PROVIDERS: ATTEND Surgery
DX: Z01.812 Encounter for preprocedural laboratory examination (principal); K43.2 Incisional hernia without obstruction or gangrene; F17.200 Nicotine dependence, unspecified, uncomplicated; D64.9 Anemia, unspecified; R94.31 Abnormal electrocardiogram [ECG] [EKG]
CPT/HCPCS: 36415; 85025; 93005

== ENCOUNTER 2021-01-23 05:52 | Day surgery (SDC) | payer MEDICARE, OTHER ==
[2021-01-20 10:13] VITALS: BMI 22.3
[~2021-01-23 05:52] MED LIST changes: +ACETAMINOPHEN TAB 500 MG TAB PO PRN; -CLINDAMYCIN 900 MG in DEXTROSE 5% IN WATER 50 ML IVPB ONE; -DEXAMETHASONE SOD PHOSPHATE 10 MG/ML 1 ML VIAL IV ONE; +DEXAMETHASONE SOD PHOSPHATE 4 MG/ML 1 ML VIAL IV ONE; -DEXAMETHASONE SOD PHOSPHATE 4 MG/ML 1 ML VIAL ONE; -EPINEPHrine 4 MG in SODIUM CHLORIDE 0.9% IRRIGATIO 3,000 ML IRRIGATION ONE; +HEPARIN SODIUM,PORCINE/PF 5,000 UNIT/0.5 ML SYRINGE SQ PRN; -HYDROcodone/APAP 7.5-325MG 1 EACH TAB PO ONE; -LACTATED RINGERS 1,000 ML IV ONE; -LACTATED RINGERS 1,000 ML IV SCH; -LIDOCAINE 1% 20 ML VIAL (10MG/ML) FOR IV START INTRADERMA ONE; -LIDOCAINE 1% INJ 10MG/ML (20 ML MDV) ONE; -MIDAZOLAM (PF) 2 MG/2 ML VIAL IV PRN; +MIDAZOLAM 2 MG/2 ML VIAL IV PRN; -MIDAZOLAM 2 MG/2 ML VIAL ONE; -PHENYLEPHRINE-0.9% NACL SYG 1 MG/10 ML SYRINGE ONE; -PROPOFOL 10 MG/ML 20 ML VIAL IV ONE; -ROPIVACAINE 5 MG/ML 30 ML VIAL ONE; -SUCCINYLCHOLINE CHLORIDE 100 MG/5 ML SYR IV ONE; +VANCOMYCIN 1,000 MG in SODIUM CHLORIDE 0.9% 250 ML IVPB PRN; -fentaNYL (PF) 50 MCG/ML 2 ML AMP IV ONE; -fentaNYL (PF) 50 MCG/ML 2 ML AMP ONE
[2021-01-23] MEDS: LACTATED RINGERS 1,000 ML IV SCH (06:20)
[2021-01-23] MEDS ORDERED: MIDAZOLAM 2 MG/2 ML VIAL ONE (07:42)
[2021-01-23] MEDS ORDERED: ROCURONIUM 10 MG/ML (5 ML VIAL) IV ONE (07:42)
[2021-01-23] MEDS ORDERED: LIDOCAINE 1% INJ 10MG/ML (20 ML MDV) ONE (07:42)
[2021-01-23] MEDS ORDERED: ePHEDrine SULFATE/0.9% NACL/PF 50 MG/5 ML SYRINGE IV ONE (07:42)
[2021-01-23] MEDS ORDERED: fentaNYL (PF) 50 MCG/ML 2 ML AMP ONE (07:42)
[2021-01-23] MEDS ORDERED: SUCCINYLCHOLINE CHLORIDE 100 MG/5 ML SYR IV ONE (07:42)
[2021-01-23] MEDS ORDERED: PROPOFOL 10 MG/ML 20 ML VIAL IV ONE (07:42)
[2021-01-23] MEDS ORDERED: PHENYLEPHRINE-0.9% NACL SYG 1,000 MCG/10 ML SYRINGE ONE (07:42)
[2021-01-23] MEDS ORDERED: NEOSTIGMINE 1 MG/ML 10 ML VIAL ONE (07:42)
[2021-01-23] MEDS ORDERED: GLYCOPYRROLATE 0.2 MG/ML 2 ML VIAL ONE (07:42)
[2021-01-23] MEDS ORDERED: LACTATED RINGERS 1,000 ML IV ONE (07:54)
[2021-01-23] MEDS: HYDROmorphone 0.5 MG/0.5 ML SYRINGE IVP PRN ×2 (09:21→09:31)
--- NOTE | 2021-01-23 09:38 | P.OP ---
Date of Procedure: 01/23/21 Procedure(s) Performed: PREOPERATIVE DIAGNOSIS: Incarcerated incisional hernia POSTOPERATIVE DIAGNOSIS: Incarcerated incisional hernia 2 sites PROCEDURE: Incarcerated incisional hernia 2 SURGEON: Dr. Alarcon ANESTHESIA: General OPERATIVE PROCEDURE DETAILS: Patient placed on the operating table in the sup ine position. Abdomen was prepped and draped in usual sterile fashion. The previous incision scar was excised. Dissection through the subcutaneous tissues took place using electrocautery. The patient ended up having 2 separate defects by about 2.5-3 cm. Both defects were small measuring only approximately 1-1.5 cm in diameter. At each location the hernia contents were reduced back into the preperitoneal space. At the more superior hernia defect preperitoneal space was dissected using blunt dissection and electrocautery. At the lower hernia defect the patient had visible mesh which appeared to be [place] beneath the fascia. The space between the fascia and the [place] was dissected. Once we had adequate space a 4.3 cm mesh was placed separately at each location. The mesh was sutured in place using trans-fascial 0 Ethibond sutures. The defect was then closed at both locations using interrupted 0 Ethibond horizontal mattress sutures. The folding edge was sutured down using 0 Ethibond sutures as well. No further defects were seen. The previous mesh was not removed. No bleeding was seen. The subcutaneous tissues were closed using 3-0 Vicryl sutures. The skin was closed using running 4-0 Monocryl suture. Sterile dressings were applied. HERNIA CHARACTERISTICS: Length: 1, 1.5 Width: 1, 1.5 Type: Incarcerated incisional 2 TYPE OF MESH USED: Ventral X 4.3 centimeter 2 LOCATION OF MESH: Sub-lay FIXATION: 0 Ethibond sutures DISPOSITION: Stable to recovery room
[2021-01-23] MEDS ORDERED: METOPROLOL TARTRATE 5 MG/5 ML VIAL IVP ONE ×4 (09:47→10:57)
[2021-01-23] MEDS ORDERED: fentaNYL (PF) 50 MCG/ML 2 ML AMP IVP ONE (09:57)
[2021-01-23] MEDS: ACETAMINOPHEN TAB 325 MG TAB PO SCH ×3 (11:52→23:11)
[2021-01-23] MEDS ORDERED: NICOTINE 14MG/24HR PATCH TRANSDERM STA (13:23)
[2021-01-23] MEDS ORDERED: HYDROmorphone 0.5 MG/0.5 ML SYRINGE IVP PRN (14:19)
[2021-01-23] MEDS ORDERED: NALOXONE 0.4 MG/ML 1 ML VIAL IV PRN (14:19)
[2021-01-23] MEDS ORDERED: ONDANSETRON 4 MG/2 ML VIAL IVP PRN (14:19)
[2021-01-23] MEDS: HYDROcodone/APAP 7.5-325MG 1 EACH TAB PO PRN ×2 (14:45→20:33)
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
[2021-01-23] MEDS ORDERED: ETODOLAC 300 MG CAPSULE PO SCH (16:00)
[2021-01-23] MEDS: HEPARIN SODIUM,PORCINE/PF 5,000 UNIT/0.5 ML SYRINGE SQ SCH ×2 (17:19→23:12)
[2021-01-23] MEDS: METOPROLOL TARTRATE 25 MG TAB PO SCH ×2 (17:19→23:08)
[2021-01-23] MEDS: ETODOLAC 300 MG CAPSULE PO SCH ×2 (17:31→23:12)
[2021-01-23] MEDS: FAMOTIDINE 20 MG TAB PO SCH (20:33)
[2021-01-23] MEDS: SACUBITRIL/VALSARTAN 24 MG-26 MG TABLET PO SCH (20:34)
[2021-01-24] MEDS: LACTATED RINGERS 1,000 ML IV SCH (06:22)
[2021-01-24] MEDS: ACETAMINOPHEN TAB 325 MG TAB PO SCH ×4 (06:31→23:32)
[2021-01-24] MEDS: HYDROcodone/APAP 7.5-325MG 1 EACH TAB PO PRN ×4 (06:35→23:33)
--- NOTE | 2021-01-24 07:45 | XR ---
EXAMINATION TYPE: XR chest 2V DATE OF EXAM: 01/24/2021 COMPARISON: 12/09/2020 HISTORY: 65 years Male. STUDY INDICATION GIVEN: Congestive heart failure . TECHNIQUE: PA and lateral chest radiographs FINDINGS AND IMPRESSION: Bibasilar opacities, new compared to prior, a be on the basis of subsegmental atelectasis though pneu parminder infiltrate cannot be entirely excluded. Scattered tiny dense nodules bilaterally, stable, be related to remote granulomatous disease. Mild prominence of the interstitium suggests minimal pulmonary edema. No pleural effusion or pneumoth orax. No cardiomegaly. No acute osseous abnormality. Surgical zoila in the right basal are stable.
[2021-01-24] MEDS: HEPARIN SODIUM,PORCINE/PF 5,000 UNIT/0.5 ML SYRINGE SQ SCH ×3 (08:00→23:33)
[2021-01-24] MEDS: ETODOLAC 300 MG CAPSULE PO SCH ×3 (08:00→23:33)
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
[2021-01-24] MEDS: METOPROLOL SUCCINATE (ER) 25 MG TAB.ER.24H PO SCH ×2 (09:24→12:00)
[2021-01-24] MEDS: NICOTINE 14MG/24HR PATCH TRANSDERM SCH (09:25)
[2021-01-24] MEDS: FAMOTIDINE 20 MG TAB PO SCH ×2 (09:26→20:17)
[2021-01-24] MEDS: SACUBITRIL/VALSARTAN 24 MG-26 MG TABLET PO SCH ×2 (09:26→20:17)
[2021-01-24 09:58] LABS: Basophils % (A) 0 %; Eosinophils # (A) 0.1 k/uL (0-0.7); Eosinophils % (A) 1 %; HCT 43.1 % (39.0-53.0); HGB 14.1 gm/dL (13.0-17.5); Lymphocytes # (A) 1.7 k/uL (1.0-4.8); Lymphocytes % (A) 17 %; MCH 30.5 pg (25.0-35.0); MCHC 32.8 g/dL (31.0-37.0); Mean Platelet Volume 7.4; Monocytes # (A) 0.5 k/uL (0-1.0); Monocytes % (A) 5 %; Neutrophils # (A) 7.6 k/uL (1.3-7.7); Neutrophils % (A) 75 %; Platelet Count 251 k/uL (150-450); RBC 4.64 m/uL (4.30-5.90); RDW 14.4 % (11.5-15.5)
[2021-01-24 10:11] LABS: ALT 69 U/L (4-49); AST 59 U/L (17-59); African American GFR (CKD) >90 (>60 ml/min/1.73 sqM); Albumin 3.8 g/dL (3.5-5.0); Alkaline Phosphatase 172 U/L (38-126); Anion Gap 9 mmol/L; Blood Urea Nitrogen 11 mg/dL (9-20); Calcium 9.2 mg/dL (8.4-10.2); Carbon Dioxide 26 mmol/L (22-30); Chloride 103 mmol/L (98-107); Glucose 116 mg/dL (74-99); Non-African American GFR(CKD) >90 (>60 ml/min/1.73 sqM); Potassium 3.9 mmol/L (3.5-5.1); Sodium 138 mmol/L (137-145); Total Bilirubin 1.7 mg/dL (0.2-1.3); Total Protein 7.1 g/dL (6.3-8.2)
[2021-01-24 10:25] LABS: T4, Free (Free Thyroxine) 1.33 ng/dL (0.78-2.19)
--- NOTE | 2021-01-24 11:28 | P.PN ---
Subjective Progress Note Date: 01/24/21 Mónica Nation, is a 65-year-old male well-known to my practice who was admitted to [facility] by Dr. Alarcon, and underwent surgery for incarcerated incisional hernia, patient was admitted to telemetry floor post surgery medical consultation was requested for management while hospitalized. Patient has a known history of chronic systolic congestive heart failure, his last echocardiogram done in September 2020 revealed ejection fraction of 35-40%, patient has nonischemic cardiomyopathy he had a cardiac catheterization in 2019 that revealed normal coronary arteries . 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 Patient also has a known history of previous heroine abuse he is followed with [facility] in that regard, he also has a known history of tobacco abuse. Patient has a history of left below knee amputation, and previous history of abdominal surgery however patient is not able to give details on what the surgery was for. On review of systems Patient was seen and examined on the medical floor, he is alert and oriented x 3 in no distress, he denies any complaints there is no fever or chills no headache or dizziness no chest pain no shortness of breath no palpitation no cough no nausea or vomiting no abdominal pain no diarrhea no blood in the stools no burning with urination no frequency or urgency and no hematuria, there is no weakness or numbness in any of the extremities no change in vision speech or gait. On 01/24/2021 patient was seen and examined on the telemetry floor, he is alert and oriented 3 in no apparent distress, there is no fever or chills no headache or dizziness no chest pain no shortness of breath no cough no palpitation no nausea or vomiting no abdominal pain no diarrhea no blood in the stools no burning with urination no frequency or urgency and no hematuria. There is no weakness or numbness in any of the extremities there is no change in vision speech or gait. And had an episode of SVT yesterday cardiology consultation was requested patient was seen by Dr. Reynolds metoprolol succinate 25 mg by mouth daily was added to medication regimen patient currently is in normal sinus rhythm echocardiogram ordered by cardiology possible discharge to home tomorrow if stable. Objective - Vital Signs Vital signs: Vital Signs Temp 98.5 F 01/24/21 03:31 Pulse 60 01/24/21 03:31 Resp 18 01/24/21 03:31 BP 101/63 01/24/21 03:31 Pulse Ox 99 01/24/21 03:31 Intake & Output 01/23/21 01/24/21 01/24/21 18:59 06:59 18:59 Intake Total 2280 580 Output Total 1060 Balance 1220 580 Weight 70 kg Intake: IV 2100 Intake, IV Titration 220 Amount Lactated Ringers 1,000 ml 220 @ 20 mls/hr IV .Q24H [facility] Rx#:[id number] Oral 180 360 Output: Urine 1050 Estimated Blood Loss 10 Other: Voiding Method Urinal Urinal # Voids 1 725 - Exam In general patient is alert and oriented x 3 in no distress HEENT head normocephalic and atraumatic Neck is supple no JVD no goiter no lymphadenopathy no carotid bruit Chest examination is clear to auscultation no crackles no wheezing Cardiac exam reveals regular heart sounds S1 and S2 no gallops no murmurs Abdomen is soft nontender no organomegaly with normal bowel sounds Extremity exam reveals no edema no cyanosis or clubbing Neurological examination reveals no gross focal deficits - Labs CBC & Chem 7: 01/24/21 09:14 01/24/21 09:14 Assessment and Plan Plan: Abdominal wall incisional hernia, patient underwent surgery today with Dr. Alarcon Known history of chronic systolic congestive heart failure maintained on Entresto, will resume medication, avoid fluid overload, will check chest x-ray and BNP in a.m. tomorrow History of heroine abuse in the past, followed by [facility] History of tobacco abuse. Episode of SVT, cardiology consultation was requested, patient was started on metoprolol succinate, echocardiogram ordered At this time patient was seen and examined on the telemetry floor Home medications reviewed and reordered Check chest x-ray and BNP in a.m., check CBC and CMP and a.m. Will follow closely
--- NOTE | 2021-01-24 13:12 | P.PN ---
Subjective Progress Note Date: 01/24/21 CHIEF COMPLAINT: Incisional hernia HISTORY OF PRESENT ILLNESS: The patient is a 65-year-old male status post incisional hernia repair. Patient had supraventricular tachycardia prior to and following surgery. His pain is still moderate. ROS: No reports of nausea and vomiting. No fevers or chills. No new chest pain. No productive sputum PHYSICAL EXAM: VITAL SIGNS: Reviewed CONSTITUTIONAL: Well developed and in no acute distress. EYES: Conjuctivae without sclera icterus. Extraocular movements grossly intact. HEAD, EARS, NOSE, THROAT: Moist buccal mucosa. Head is atraumatic, normocep halic. Hears conversational speech. No nasal drainage. NECK: No gross thyroidomegaly. No jugular venous distention. RESPIRATORY: Non-labored respirations and equal bilateral excursions. CARDIOVASCULAR: Palpable 2+ radial pulses. ABDOMEN: Incisions clean dry and intact. MUSCULOSKELETAL: No clubbing. No cyanosis. Has below the knee amputaiton. SKIN: Good skin turgor. Well perfused. NEUROLOGIC: Cranial nerves II through XII grossly intact. No focal or lateralizing signs. PSYCH: Appropriate affect. Alert and oriented to person, place and time. CLINICAL LABS: White blood cell count normal at 10.0. Hemoglobin normal 14.1. Potassium normal at 4.9. ASSESSMENT: 1. Incisional hernia with incarceration 2. Supraventricular tachycardia PLAN: 1. Per cardiology, echocardiogram pending prior to discharge. 2. Adjust pain medication with adjuncts scheduled non-narcotics Objective - Vital Signs Vital signs: Vital Signs Temp 97.8 F 01/24/21 08:00 Pulse 60 01/24/21 08:00 Resp 18 01/24/21 08:00 BP 101/63 01/24/21 08:00 Pulse Ox 98 01/24/21 08:00 Intake & Output 01/23/21 01/24/21 01/24/21 18:59 06:59 18:59 Intake Total 2280 580 Output Total 1060 400 Balance 1220 580 -400 Weight 70 kg Intake: IV 2100 Intake, IV Titration 220 Amount Lactated Ringers 1,000 ml 220 @ 20 mls/hr IV .Q24H [facility] Rx#:[id number] Oral 180 360 Output: Urine 1050 400 Estimated Blood Loss 10 Other: Voiding Method Urinal Urinal Urinal # Voids 1 725 - Labs CBC & Chem 7: 01/24/21 09:14 01/24/21 09:14 Assessment and Plan (1) Incisional hernia with obstruction Current Visit: Yes Status: Acute Code(s): K43.0 - INCISIONAL HERNIA WITH OBSTRUCTION, WITHOUT GANGRENE SNOMED Code(s): 55199954 (2) Supraventricular tachycardia Current Visit: Yes Status: Acute Code(s): I47.1 - SUPRAVENTRICULAR TACHYCARDIA SNOMED Code(s): 9295047
[2021-01-24] MEDS: GABAPENTIN 300 MG CAP PO SCH ×2 (16:30→20:17)
[2021-01-25] MEDS: LACTATED RINGERS 1,000 ML IV SCH (05:54)
[2021-01-25] MEDS: ACETAMINOPHEN TAB 325 MG TAB PO SCH ×2 (06:39→11:58)
[2021-01-25] MEDS: HYDROcodone/APAP 7.5-325MG 1 EACH TAB PO PRN (06:49)
--- NOTE | 2021-01-25 07:24 | P.PN ---
Subjective Progress Note Date: 01/25/21 Principal diagnosis: Cardiac arrhythmia This is a 65-year-old -[place] gentleman was admitted to the hospital and underwent repair of incarcerated incisional hernia. Postoperatively the patient did have cardiac arrhythmia with SVT with differential diagnosis of AVNRT versus AVRT. The patient was seen this morning. He stated that he is feeling overall better. He denies any feeling of heart racing or fluttering or dizziness or lightheadedness. No symptoms of chest pain or chest discomfort. He has been maintaining normal sinus mechanism. He is on Toprol excelled. From the cardiovascular standpoint of view, the patient can be discharged home. Objective - Vital Signs Vital signs: Vital Signs Temp 98.1 F 01/25/21 03:56 Pulse 69 01/25/21 03:56 Resp 17 01/25/21 03:56 BP 128/77 01/25/21 03:56 Pulse Ox 97 01/25/21 03:56 Intake & Output 01/24/21 01/25/21 01/25/21 18:59 06:59 18:59 Intake Total 1040 Output Total 400 750 Balance -400 290 Weight 70.5 kg Intake: Intake, IV Titration 200 Amount Lactated Ringers 1,000 ml 200 @ 20 mls/hr IV .Q24H [facility] Rx#:[id number] Oral 840 Output: Urine 400 750 Other: Voiding Method Urinal Urinal # Voids 1 3 - Constitutional General appearance: Present: no acute distress - Respiratory Respiratory: bilateral: CTA - Cardiovascular Rhythm: regular Heart sounds: normal: S1, S2 - Labs CBC & Chem 7: 01/24/21 09:14 01/24/21 09:14 Labs: Abnormal Lab Results - Last 24 Hours (Table) 01/24/21 01/24/21 Range/Units 09:14 09:14 Creatinine 0.47 L (0.66-1.25) mg/dL Glucose 116 H (74-99) mg/dL Total Bilirubin 1.7 H (0.2-1.3) mg/dL ALT 69 H (4-49) U/L Alkaline Phosphatase 172 H (38-126) U/L TSH 0.082 L (0.465-4.680) mIU/L Assessment and Plan Assessment: Assessment #1 status post repair of incarcerated incisional hernia #2 short RP tachycardia. Differential included AVNRT versus AVRT #3 history of nonischemic cardiomyopathy #4 chronic pain Plan #1 continue the current dose of Toprol-XL #2 the patient can be discharged home
[2021-01-25] MEDS: HEPARIN SODIUM,PORCINE/PF 5,000 UNIT/0.5 ML SYRINGE SQ SCH (08:38)
[2021-01-25 09:02] LABS: ALT 43 U/L (4-49); AST 32 U/L (17-59); African American GFR (CKD) >90 (>60 ml/min/1.73 sqM); Albumin 3.7 g/dL (3.5-5.0); Alkaline Phosphatase 147 U/L (38-126); Anion Gap 8 mmol/L; Blood Urea Nitrogen 13 mg/dL (9-20); Calcium 9.3 mg/dL (8.4-10.2); Carbon Dioxide 25 mmol/L (22-30); Chloride 105 mmol/L (98-107); Glucose 121 mg/dL (74-99); Non-African American GFR(CKD) >90 (>60 ml/min/1.73 sqM); Sodium 138 mmol/L (137-145); Total Bilirubin 0.7 mg/dL (0.2-1.3); Total Protein 7.1 g/dL (6.3-8.2)
[2021-01-25 09:03] LABS: Basophils # (A) 0.1 k/uL (0-0.2); Basophils % (A) 1 %; Eosinophils # (A) 0.1 k/uL (0-0.7); Eosinophils % (A) 2 %; HCT 44.1 % (39.0-53.0); HGB 14.2 gm/dL (13.0-17.5); Lymphocytes # (A) 2.3 k/uL (1.0-4.8); Lymphocytes % (A) 39 %; MCH 29.9 pg (25.0-35.0); MCHC 32.2 g/dL (31.0-37.0); MCV 93.1 fL (80.0-100.0); Mean Platelet Volume 7.3; Monocytes # (A) 0.4 k/uL (0-1.0); Monocytes % (A) 7 %; Neutrophils # (A) 2.8 k/uL (1.3-7.7); Neutrophils % (A) 48 %; Platelet Count 320 k/uL (150-450); RBC 4.74 m/uL (4.30-5.90); RDW 14.5 % (11.5-15.5); WBC 5.8 k/uL (3.8-10.6)
[2021-01-25] MEDS: FAMOTIDINE 20 MG TAB PO SCH (09:38)
[2021-01-25] MEDS: METOPROLOL SUCCINATE (ER) 25 MG TAB.ER.24H PO SCH (09:38)
[2021-01-25] MEDS: NICOTINE 14MG/24HR PATCH TRANSDERM SCH (09:38)
[2021-01-25] MEDS: SACUBITRIL/VALSARTAN 24 MG-26 MG TABLET PO SCH (09:38)
[2021-01-25] MEDS: GABAPENTIN 300 MG CAP PO SCH (09:38)
[2021-01-25] MEDS: ETODOLAC 300 MG CAPSULE PO SCH (09:38)
--- NOTE | 2021-01-25 10:44 | ECHOF ---
Referral Reason:cardiac arrhythmia MEASUREMENTS -------- HEIGHT: 182.9 cm WEIGHT: 69.9 kg BP: RVIDd: 2.8 cm (< 3.3) IVSd: 1.0 cm (0.6 - 1.1) LVIDd: 5.6 cm (3.9 - 5.3) LVPWd: 1.1 cm (0.6 - 1.1) IVSs: 1.5 cm LVIDs: 4.2 cm LVPWs: 1.4 cm LA Diam: 3.8 cm (2.7 - 3.8) Ao Diam: 3.2 cm (2.0 - 3.7) AV Cusp: 1.9 cm (1.5 - 2.6) LA Diam: 3.7 cm (2.7 - 3.8) MV EXCURSION: 21.866 mm (> 18.000) MV EF SLOPE: 107 mm/s (70 - 150) EPSS: 1.2 cm MV E [place]: 0.65 m/s MV DecT: 260 ms MV A [place]: 0.68 m/s MV E/A Ratio: 0.95 RAP: 5.00 mmHg RVSP: 16.34 mmHg FINDINGS -------- This was a technically good study. There is mild global hypokinesis of LV . Overall left ventricular systolic function is mildly impai red with, an EF between 45 - 50 %. The aortic valve is trileaflet and appears structurally normal. The mitral valve is normal. The tricuspid valve appears structurally normal. CONCLUSIONS -------- 1. This was a technically good study. 2. There is mild global hypokinesis of LV . 3. Overall left ventricular systolic function is mildly impaired with, an EF between 45 - 50 %. 4. The aortic valve is trileaflet and appears structurally normal. 5. The mitral valve is normal. 6. The tricuspid valve appears structurally normal. ART FRAMING MANAGER: Cassidy Carver RDCS
[2021-01-25 11:34] VITALS: BP 108/68; PULSE 68; RESP 16; TEMP 98
--- NOTE | 2021-01-25 12:05 | P.DS ---
Providers Expected date of discharge: 01/25/21 Attending physician: Leonel Alarcon Consults: 01/23/21 10:37 Consult Physician Urgent Consulting Provider: Carlo Murphy Consult Reason/Comments: SVT/Atrial Fib Do you want consulting provider notified?: Yes 01/23/21 14:19 Consult Physician Routine Consulting Provider: Elzbieta Richard Consult Reason/Comments: med mgmt Do you want consulting provider notified?: Yes Primary care physician: Elzbieta Jose Manuel [facility] Course: Discharge diagnosis Abdominal wall incisional hernia, patient underwent surgery today with Dr. Alarcon Known history of chronic systolic congestive heart failure maintained on Entresto, will resume medication, avoid fluid overload, will check chest x-ray and BNP in a.m. tomorrow History of heroine abuse in the past, followed by [facility] History of tobacco abuse. Episode of SVT, cardiology consultation was requested, patient was started on metoprolol succinate, echocardiogram ordered 2-D echo completed showing EF of 45-50%. Patient to continue on Lopressor and entresto Hospital course Mónica Nation, is a 65-year-old male well-known to my practice who was admitted to [facility] by Dr. Alarcon, and underwent surgery for incarcerated incisional hernia, patient was admitted to telemetry floor post surgery medical consultation was requested for management while hospitalized. Patient has a known history of chronic systolic congestive heart failure, his last echocardiogram done in September 2020 revealed ejection fraction of 35-40%, patient has nonischemic cardiomyopathy he had a cardiac catheterization in 2019 that revealed normal coronary arteries . 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 Patient also has a known history of previous heroine abuse he is followed with [facility] in that regard, he also has a known history of tobacco abuse. Patient has a history of left below knee amputation, and previous history of abdominal surgery however patient is not able to give details on what the surgery was for. On review of systems Patient was seen and examined on the medical floor, he is alert and oriented x 3 in no distress, he denies any complaints there is no fever or chills no headache or dizziness no chest pain no shortness of breath no palpitation no cough no nausea or vomiting no abdominal pain no diarrhea no blood in the stools no burning with urination no frequency or urgency and no hematuria, there is no weakness or numbness in any of the extremities no change in vision speech or gait. On 01/24/2021 patient was seen and examined on the telemetry floor, he is alert and oriented 3 in no apparent distress, there is no fever or chills no headache or dizziness no chest pain no shortness of breath no cough no palpitation no nausea or vomiting no abdominal pain no diarrhea no blood in the stools no burning with urination no frequency or urgency and no hematuria. There is no weakness or numbness in any of the extremities there is no change in vision speech or gait. And had an episode of SVT yesterday cardiology consultation was requested patient was seen by Dr. Reynolds metoprolol succinate 25 mg by mouth daily was added to medication regimen patient currently is in normal sinus rhythm echocardiogram ordered by cardiology possible discharge to home tomorrow if stable. On 01/25/2021 patient is alert and oriented 3. Patient denies chest pain or shortness breath. Patient denies nausea vomiting or diarrhea. Patient denies any urinary burning or frequency. Patient has been cleared for discharge from cardiology standpoint. Patient will be discharged on Lopressor. Patient follow-up cardiology services and PCP for further management. Patient Condition at Discharge: Stable Plan - Discharge Summary Discharge Rx Participant: Yes New Discharge Prescriptions: New HYDROcodone/APAP 5-325MG [[place] 5-325] 1 tab PO Q6HR PRN 3 Days #10 tab PRN Reason: Analgesia HYDROcodone/APAP 7.5-325MG [[place] 7.5-325] 1 tab PO Q6HR PRN 3 Days #10 tab PRN Reason: pain Nicotine 14Mg/24Hr Patch [Habitrol] 1 patch TRANSDERM DAILY 30 Days #30 patch Sacubitril/Valsartan [Entresto 24 mg-26 mg Tablet] 1 each PO BID 30 Days #60 tablet Metoprolol Succinate (ER) [Toprol XL] 25 mg PO DAILY 30 Days #30 tablet Continue Ergocalciferol [Vitamin D2 (1250 Mcg = 81163 Iu)] 1,250 mcg PO MO Ketorolac [Toradol] 10 mg PO Q8HR #10 tab Discontinued Hydrocodone/Acetaminophen [[place] 7.5-325] 1 tab PO Q6H PRN PRN Reason: Pain Discharge Medication List Ergocalciferol [Vitamin D2 (1250 Mcg = 37502 Iu)] 1,250 mcg PO MO 09/26/20 [History] Ketorolac [Toradol] 10 mg PO Q8HR #10 tab 09/26/20 [Rx] HYDROcodone/APAP 5-325MG [[place] 5-325] 1 tab PO Q6HR PRN 3 Days #10 tab 01/23/21 [Rx] HYDROcodone/APAP 7.5-325MG [[place] 7.5-325] 1 tab PO Q6HR PRN 3 Days #10 tab 01/23/21 [Rx] Metoprolol Succinate (ER) [Toprol XL] 25 mg PO DAILY 30 Days #30 tablet 01/25/21 [Rx] Nicotine 14Mg/24Hr Patch [Habitrol] 1 patch TRANSDERM DAILY 30 Days #30 patch 01/25/21 [Rx] Sacubitril/Valsartan [Entresto 24 mg-26 mg Tablet] 1 each PO BID 30 Days #60 tablet 01/25/21 [Rx] Follow up Appointment(s)/Referral(s): Leonel Alarcon MD [Medical Doctor] - 01/29/21 8:50 am Patient Instructions/Handouts: *Surgery [facility] - (Anesthesia) Discharge Instructions Outpatient Surgery, *Surgery [facility] - Scopalamine Patch Instructions, Inguinal Hernia Repair (DC)
--- NOTE | 2021-01-25 12:37 | P.PN ---
Subjective Progress Note Date: 01/25/21 CHIEF COMPLAINT: Incisional hernia HISTORY OF PRESENT ILLNESS: The patient is a 65-year-old male status post incisional hernia repair. Patient had supraventricular tachycardia prior to and following surgery. He has had no further acute cardiac events. He has been cleared for discharge from cardiology standpoint. ROS: No reports of nausea and vomiting. No fevers or chills. No new chest pain. No productive sputum PHYSICAL EXAM: VITAL SIGNS: Reviewed CONSTITUTIONAL: Well developed and in no acute distress. EYES: Conjuctivae without sclera icterus. Extraocular movements grossly intact. HEAD, EARS, NOSE, THROAT: Moist buccal mucosa. Head is atraumatic, normocephalic. Hears conversational speech. No nasal drainage. NECK: No gross thyroidomegaly. No jugular venous distention. RESPIRATORY: Non-labored respirations and equal bilateral excursions. CARDIOVASCULAR: Regular rate and rhythm ABDOMEN: Incisions clean dry and intact. MUSCULOSKELETAL: No clubbing. No cyanosis. Has below the knee amputaiton. SKIN: Good skin turgor. Well perfused. NEUROLOGIC: Cranial nerves II through XII grossly intact. No focal or lateralizing signs. PSYCH: Appropriate affect. Alert and oriented to person, place and time. CLINICAL LABS: Reviewed. WBC normal. Lytes within normal limits. ASSESSMENT: 1. Incisional hernia with incarceration 2. Supraventricular tachycardia, resolved PLAN: 1. Follow-up outpatient in 1 week. 2. Discharge questions addressed. Objective - Vital Signs Vital signs: Vital Signs Temp 98 F 01/25/21 11:32 Pulse 68 01/25/21 11:32 Resp 16 01/25/21 11:32 BP 108/68 01/25/21 11:32 Pulse Ox 99 01/25/21 11:32 Intake & Output 01/24/21 01/25/21 01/25/21 18:59 06:59 18:59 Intake Total 1040 120 Output Total 400 750 Balance -400 290 120 Weight 70.5 kg Intake: Intake, IV Titration 200 Amount Lactated Ringers 1,000 ml 200 @ 20 mls/hr IV .Q24H BINTA Rx#:[id number] Oral 840 120 Output: Urine 400 750 Other: Voiding Method Urinal Urinal Urinal # Voids 1 3 1 - Labs CBC & Chem 7: 01/25/21 08:02 01/25/21 08:02 Labs: Abnormal Lab Results - Last 24 Hours (Table) 01/25/21 Range/Units 08:02 Creatinine 0.47 L (0.66-1.25) mg/dL Glucose 121 H (74-99) mg/dL Alkaline Phosphatase 147 H (38-126) U/L Assessment and Plan (1) Incisional hernia with obstruction Current Visit: Yes Status: Acute Code(s): K43.0 - INCISIONAL HERNIA WITH OBSTRUCTION, WITHOUT GANGRENE SNOMED Code(s): 87377197 (2) Supraventricular tachycardia Current Visit: Yes Status: Acute Code(s): I47.1 - SUPRAVENTRICULAR TACHYCARDIA SNOMED Code(s): 6176406
[2021-01-26] MEDS ORDERED: ERGOCALCIFEROL 1,250 MCG (50,000 IU) CAPSULE PO SCH (09:00)
== END 2021-01-25 13:45 | disposition home or self-care (01) ==
LOC: OR 05:52 → 3SCARD 11:12 → OR 01-25 13:45
PROVIDERS: ATTEND Surgery
DX: K43.0 Incisional hernia with obstruction, without gangrene (principal); F17.200 Nicotine dependence, unspecified, uncomplicated; E05.90 Thyrotoxicosis, unspecified without thyrotoxic crisis or storm; I50.22 Chronic systolic (congestive) heart failure; I47.1 Supraventricular tachycardia; I42.8 Other cardiomyopathies; G89.29 Other chronic pain; I25.10 Atherosclerotic heart disease of native coronary artery without angina pectoris; Z89.512 Acquired absence of left leg below knee; Z79.899 Other long term (current) drug therapy; Z88.0 Allergy status to penicillin; Z88.6 Allergy status to analgesic agent; Z79.1 Long term (current) use of non-steroidal anti-inflammatories (NSAID)
CPT/HCPCS: 49561; 49568; 93306; 93005; 86900; 86901; 84439; 83880; 80053 ×2; 84443; 84132; 85025 ×2; 86850; 71046; C1781; S4990 ×3; J2250; J3370; J1100; J2710; J2405; J2001; J3010; J2370; J0330; J2704; J1170; J1644 ×3

== ENCOUNTER 2021-03-12 14:06 | Inpatient (IN) | payer MEDICARE, OTHER ==
[2021-03-12] MEDS ORDERED: MORPHINE SULFATE 4 MG/ML SYRINGE IV STA (15:28)
[2021-03-12] MEDS ORDERED: SODIUM CHLORIDE 0.9% 1,000 ML IV STA (15:28)
[2021-03-12] MEDS ORDERED: ONDANSETRON 4 MG/2 ML VIAL IVP STA (15:28)
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
[2021-03-12 16:13] LABS: Basophils # (A) 0.1 k/uL (0-0.2); Basophils % (A) 1 %; Eosinophils # (A) 0.1 k/uL (0-0.7); Eosinophils % (A) 1 %; HGB 15.4 gm/dL (13.0-17.5); Lymphocytes % (A) 25 %; MCH 28.9 pg (25.0-35.0); MCHC 31.4 g/dL (31.0-37.0); Mean Platelet Volume 7.3; Monocytes # (A) 0.6 k/uL (0-1.0); Monocytes % (A) 7 %; Neutrophils # (A) 5.2 k/uL (1.3-7.7); Neutrophils % (A) 65 %; Platelet Count 334 k/uL (150-450); RBC 5.33 m/uL (4.30-5.90); WBC 8.1 k/uL (3.8-10.6)
[2021-03-12 16:14] LABS: ALT 13 U/L (4-49); AST 23 U/L (17-59); African American GFR (CKD) >90 (>60 ml/min/1.73 sqM); Albumin 4.8 g/dL (3.5-5.0); Alkaline Phosphatase 157 U/L (38-126); Amylase 114 U/L (30-110); Anion Gap 12 mmol/L; Blood Urea Nitrogen 4 mg/dL (9-20); Calcium 9.9 mg/dL (8.4-10.2); Carbon Dioxide 24 mmol/L (22-30); Chloride 100 mmol/L (98-107); Glucose 110 mg/dL (74-99); Lipase 48 U/L (23-300); Non-African American GFR(CKD) >90 (>60 ml/min/1.73 sqM); Potassium 3.9 mmol/L (3.5-5.1); Sodium 136 mmol/L (137-145); Total Bilirubin 1.6 mg/dL (0.2-1.3); Total Protein 9.1 g/dL (6.3-8.2)
[2021-03-12 16:18] LABS: INR 1.1 (<1.2); Partial Thromboplastin Time 23.6 sec (22.0-30.0); Prothrombin Time 11.2 sec (9.0-12.0)
--- NOTE | 2021-03-12 16:52 | CT ---
EXAMINATION TYPE: CT abdomen pelvis w con DATE OF EXAM: 03/12/2021 COMPARISON: 07/24/2015 HISTORY: periumbilical pain post hernia repair, nausea, vomiting CT DLP: 658.8 mGycm CONTRAST: CT scan of the abdomen and pelvis is performed with Oral Contrast and with IV Contrast, patient injec jesús with 100 mL of Isovue 300. FINDINGS: LUNG BASES-: No visible nodule. No infiltrate. LIVER/GB: There is wall thickening and pericholecystic fluid with: The lithiasis. There is common b ile duct dilatation noted measuring approximately 11 mm. The findings are felt to reflect acute anil cystitis. Correlate clinically. Mild intrahepatic biliary ductal dilatation noted as well. No space occupying hepatic lesion. PANCREAS: No inflammation. No distinct mass. SPLEEN: No splenic enlargement. No lesion seen. ADRENALS: No nodule. No thickening. KIDNEYS/BLADDER: No hydronephrosis. No nephrolithiasis. Renal cystic changes. Urinary bladder gross ly unremarkable. BOWEL: Nonvisualization of the appendix. No inflammation. Small bowel ileus suggested. GENITAL ORGANS: No gross abnormality. LYMPH NODES: No greater than 1cm abdominal or pelvic lymph nodes are appreciated. AORTA: No significant abnormality. OSSEOUS STRUCTURES: No significant abnormality is seen. OTHER: Herniorrhaphy changes. IMPRESSION: 1. Correlate for acute cholecystitis. 2. Mild small bowel ileus.
[2021-03-12 17:06] LABS: Appearance,Urine Clear (Clear); Bilirubin,Urine Negative (Negative); Blood,Urine Negative (Negative); Color,Urine Light Yellow; Glucose,Urine (UA) Negative (Negative); Ketones,Urine Negative (Negative); Leukocyte Esterase,Urine Negative (Negative); Nitrite,Urine Negative (Negative); Protein,Urine Negative (Negative); Specific Gravity,Urine 1.005 (1.001-1.035); Urobilinogen,Urine <2.0 mg/dL (<2.0)
[2021-03-12] MEDS ORDERED: metroNIDAZOLE-NS PMX 500 MG in SALINE 1 100ML.BAG IVPB STA (17:31)
[2021-03-12] MEDS ORDERED: cefTRIAXone IN SWFI 1,000 MG/10 ML SYRINGE IVP STA (17:31)
[2021-03-12] MEDS ORDERED: HYDROmorphone 0.5 MG/0.5 ML SYRINGE IVP PRN (17:33)
[2021-03-12] MEDS ORDERED: NALOXONE 0.4 MG/ML 1 ML VIAL IV PRN (17:33)
[2021-03-12] MEDS ORDERED: ONDANSETRON 4 MG/2 ML VIAL IVP PRN (17:33)
[2021-03-12] MEDS ORDERED: LEVOFLOXACIN 500MG-D5W PMX 500 MG in DEXTROSE/WATER 1 100ML.BAG IVPB STA (18:06)
[2021-03-12] MEDS: SODIUM CHLORIDE 0.9% 1,000 ML IV SCH (18:27)
[2021-03-12] MEDS: HYDROmorphone 1 MG/ML 1 ML SYRINGE IVP PRN ×3 (18:28→23:16)
[2021-03-13] MEDS: metroNIDAZOLE-NS PMX 500 MG in SALINE 1 100ML.BAG IVPB SCH ×4 (00:38→18:22)
[2021-03-13] MEDS: HYDROmorphone 1 MG/ML 1 ML SYRINGE IVP PRN ×6 (01:17→18:21)
[2021-03-13 06:41] LABS: INR 1.1 (<1.2); Prothrombin Time 11.9 sec (9.0-12.0)
[2021-03-13 10:14] LABS: Basophils # (A) 0.04 X 10*3/uL (0.00-0.10); Basophils % (A) 0.2 %; Eosinophils # (A) 0 X 10*3/uL (0.04-0.35); Eosinophils % (A) 0 %; HGB 14.7 g/dL (13.0-17.0); Lymphocytes # (A) 0.82 X 10*3/uL (0.90-5.00); Lymphocytes % (A) 4.4 %; MCH 28.2 pg (27.0-32.0); MCV 88.1 fL (80.0-97.0); Mean Platelet Volume 10.2 fL (9.5-12.2); Monocytes # (A) 1.38 X 10*3/uL (0.20-1.00); Monocytes % (A) 7.5 %; Neutrophils # (A) 16.11 X 10*3/uL (1.80-7.70); Neutrophils % (A) 87.3 %; Platelet Count 343 X 10*3/uL (140-440); RBC 5.22 X 10*6/uL (4.40-5.60); RDW 15.1 % (11.5-14.5); WBC 18.46 X 10*3/uL (4.50-10.00)
[2021-03-13] MEDS: SODIUM CHLORIDE 0.9% 1,000 ML IV SCH (10:43)
[2021-03-13] MEDS ORDERED: NICOTINE 14MG/24HR PATCH TRANSDERM PRN (10:50)
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
[2021-03-13 11:04] LABS: ALT 26 U/L (4-49); African American GFR (CKD) >90 (>60 ml/min/1.73 sqM); Albumin 4.2 g/dL (3.5-5.0); Albumin/Globulin Ratio 1.1; Anion Gap 9 mmol/L; Blood Urea Nitrogen 8 mg/dL (9-20); Calcium 9.9 mg/dL (8.4-10.2); Carbon Dioxide 25 mmol/L (22-30); Chloride 103 mmol/L (98-107); Glucose 114 mg/dL (74-99); Non-African American GFR(CKD) >90 (>60 ml/min/1.73 sqM); Sodium 137 mmol/L (137-145); Total Bilirubin 3.2 mg/dL (0.2-1.3); Total Protein 8.2 g/dL (6.3-8.2)
[2021-03-13 11:09] LABS: African American GFR (CKD) 122.3 (60.0-200.0); Albumin 4.3 g/dL (3.8-4.9); Albumin/Globulin Ratio 1.3 (1.60-3.17); Anion Gap 14.4 mmol/L (4.00-12.00); BUN/Creat Ratio 10.5 Ratio (12.00-20.00); Blood Urea Nitrogen 6.3 mg/dL (9.0-27.0); Calcium 9.3 mg/dL (8.7-10.3); Carbon Dioxide 19.6 mmol/L (21.6-31.8); Globulin 3.3 g/dL (1.6-3.3); Non-African American GFR(CKD) 105.5 (60.0-200.0); Potassium 4.1 mmol/L (3.5-5.5); Total Bilirubin 2.1 mg/dL (0.30-1.20); Total Protein 7.6 g/dL (6.2-8.2)
[2021-03-13 11:12] LABS: AST 41 U/L (17-59); Alkaline Phosphatase 141 U/L (38-126); Potassium 5.4 mmol/L (3.5-5.1)
[2021-03-13 11:49] LABS: Amylase 70 U/L (30-110); Lipase 32 U/L (23-300)
[2021-03-13] MEDS: LEVOFLOXACIN 500MG-D5W PMX 500 MG in DEXTROSE/WATER 1 100ML.BAG IVPB SCH (13:26)
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
[2021-03-13] MEDS ORDERED: IV FLUID CONTINUATION 1,000 ML IV ONE (14:56)
[2021-03-13] MEDS ORDERED: DEXAMETHASONE SOD PHOSPHATE 4 MG/ML 1 ML VIAL IVP ONE (15:09)
[2021-03-13] MEDS ORDERED: ONDANSETRON 4 MG/2 ML VIAL IVP ONE (15:10)
[2021-03-13] MEDS ORDERED: HEPARIN SODIUM,PORCINE/PF 5,000 UNIT/0.5 ML SYRINGE SQ ONE (15:18)
[2021-03-13] MEDS ORDERED: HEPARIN SODIUM,PORCINE 5,000 UNIT/ML 1 ML VIAL SQ ONE (15:26)
[2021-03-13] MEDS ORDERED: SUCCINYLCHOLINE CHLORIDE 100 MG/5 ML SYR IV ONE (15:40)
[2021-03-13] MEDS ORDERED: ESMOLOL 100 MG/10 ML VIAL ONE (15:40)
[2021-03-13] MEDS ORDERED: ETOMIDATE 2 MG/ML 10 ML VIAL ONE (15:40)
[2021-03-13] MEDS ORDERED: MIDAZOLAM 2 MG/2 ML VIAL ONE (15:40)
[2021-03-13] MEDS ORDERED: ROCURONIUM 10 MG/ML (5 ML VIAL) IV ONE (15:40)
[2021-03-13] MEDS ORDERED: LIDOCAINE 1% INJ 10MG/ML (20 ML MDV) ONE (15:40)
[2021-03-13] MEDS ORDERED: HYDROmorphone (PF) 1 MG/ML ONE (15:40)
[2021-03-13] MEDS ORDERED: NEOSTIGMINE 1 MG/ML 10 ML VIAL ONE (15:40)
[2021-03-13] MEDS ORDERED: GLYCOPYRROLATE 0.2 MG/ML 2 ML VIAL ONE (15:40)
[2021-03-13] MEDS ORDERED: fentaNYL (PF) 50 MCG/ML 2 ML AMP ONE (15:40)
[2021-03-13] MEDS ORDERED: BUPIVACAINE (PF) 0.25% 30 ML VIAL SQ ONE (16:03)
[2021-03-13] MEDS ORDERED: LACTATED RINGERS 1,000 ML IV ONE (17:15)
--- NOTE | 2021-03-13 17:49 | P.OP ---
Date of Procedure: 03/13/21 Procedure(s) Performed: PREOPERATIVE DIAGNOSIS: Acute cholecystitis POSTOPERATIVE DIAGNOSIS: Perforated acute cholecystitis PROCEDURE: Laparoscopic cholecystectomy SURGEON: Agnes EBL: Minimal see anesthesia record ANESTHESIA: Gen. COMPLICATIONS: None OPERATIVE PROCEDURE: The patient was brought and placed on the operating room table in the supine position. The patient was placed under general anesthesia at that time. The abdomen was prepped and draped in the usual sterile fashion. A small horizontal incision was made in the right upper quadrant because of the patient's previous abdominal surgeries. Using the optical trocar I entered the abdominal cavity. The patient was noted to have adhesions. I was able to place a infraumbilical 5 mm trocar. The camera was then placed in that location. An additional 12 no matter trocar was placed in the epigastrium as well as a 5 mm trocar laterally in the right upper quadrant after some of the adhesions were lysed sharply. Immediately upon entrance in the abdominal cavity the patient was noted to have bile stained fluid throughout however mostly in the right upper quadrant. The gallbladder was retracted superiorly and I could visualize a definite 7-8 mm defect in the body of the gallbladder. I could not see any stones floating within the abdominal cavity after careful evaluation. The peritoneum overlying the infundibulum was bluntly dissected. The patient's cystic duct was visualized. The junction between the cystic duct common and h epatic duct was identified. The critical view of safety was achieved after blunt dissection. The cystic duct was edematous and inflamed. This was ligated using a 2-0 Ethibond stitch tied down using the tie knot device. 2 additional 12 mm clips were placed on the patient side as well. The cystic duct was then divided. The adjacent cystic artery was clipped and divided as well. The gallbladder was then removed from the liver bed using electrocautery. The gallbladder wall was significantly edematous and inflamed making this somewhat challenging. No significant bleeding when fully was seen. The area was irrigated. No bleeding was seen. A drain was placed in the gallbladder fossa exiting from the most lateral 5 mm trocar site. This was sutured in place using a 3-0 silk stitch. The gallbladder was then removed from the epigastric trocar site after lengthening the fascia with electrocautery. The trocar fascia was then closed using a running 0 Vicryl stitch. The skin at all 3 sites was closed using a 4-0 Monocryl stitch. Skin glue was utilized on the incision sites. At the end of this procedure the sponge and needle counts were correct. DISPOSITION: Stable to the recovery room
[2021-03-13] MEDS: HYDROcodone/APAP 5-325MG 1 EACH TAB PO PRN (19:48)
[2021-03-13] MEDS: SACUBITRIL/VALSARTAN 24 MG-26 MG TABLET PO SCH (20:47)
[2021-03-14] MEDS: HYDROcodone/APAP 5-325MG 1 EACH TAB PO PRN ×5 (01:02→22:41)
[2021-03-14] MEDS: HEPARIN SODIUM,PORCINE/PF 5,000 UNIT/0.5 ML SYRINGE SQ SCH ×4 (01:03→23:54)
[2021-03-14] MEDS: metroNIDAZOLE-NS PMX 500 MG in SALINE 1 100ML.BAG IVPB SCH ×5 (01:03→23:54)
[2021-03-14] MEDS: SODIUM CHLORIDE 0.9% 1,000 ML IV SCH ×2 (01:57→06:06)
[2021-03-14] MEDS: HYDROmorphone 1 MG/ML 1 ML SYRINGE IVP PRN ×3 (08:21→20:34)
[2021-03-14] MEDS: METOPROLOL SUCCINATE (ER) 25 MG TAB.ER.24H PO SCH (08:24)
[2021-03-14] MEDS: SACUBITRIL/VALSARTAN 24 MG-26 MG TABLET PO SCH ×2 (08:25→20:34)
[2021-03-14] MEDS ORDERED: LOSARTAN-HCTZ 50-12.5 MG 1 EACH TAB PO SCH (09:00)
[2021-03-14 09:06] LABS: HCT 41.2 % (39.6-50.0); HGB 13.6 g/dL (13.0-17.0); MCH 29.6 pg (27.0-32.0); MCV 89.6 fL (80.0-97.0); Mean Platelet Volume 10.4 fL (9.5-12.2); Platelet Count 283 X 10*3/uL (140-440); RDW 14.9 % (11.5-14.5); WBC 17.77 X 10*3/uL (4.50-10.00)
[2021-03-14 10:20] LABS: African American GFR (CKD) 122.3 (60.0-200.0); Albumin 3.5 g/dL (3.8-4.9); Albumin/Globulin Ratio 1.25 (1.60-3.17); Anion Gap 10.5 mmol/L (4.00-12.00); BUN/Creat Ratio 14.83 Ratio (12.00-20.00); Blood Urea Nitrogen 8.9 mg/dL (9.0-27.0); Calcium 9.1 mg/dL (8.7-10.3); Carbon Dioxide 20.5 mmol/L (21.6-31.8); Globulin 2.8 g/dL (1.6-3.3); Non-African American GFR(CKD) 105.5 (60.0-200.0); Total Protein 6.3 g/dL (6.2-8.2)
[2021-03-14 10:38] LABS: Basophils # (A) 0.03 X 10*3/uL (0.00-0.10); Basophils % (A) 0.2 %; Eosinophils # (A) 0 X 10*3/uL (0.04-0.35); Eosinophils % (A) 0 %; Lymphocytes # (A) 1.24 X 10*3/uL (0.90-5.00); Monocytes # (A) 1.51 X 10*3/uL (0.20-1.00); Monocytes % (A) 8.5 %; Neutrophils # (A) 14.88 X 10*3/uL (1.80-7.70); Neutrophils % (A) 83.7 %
--- NOTE | 2021-03-14 11:04 | P.PN ---
Progress Note - Text Progress Note Date: 03/14/21 The patient has complaints of abdominal wall pain. He has trouble moving out of bed. On exam vital signs are stable. Abdomen soft. Incision sites clean dry tach. Status post laparoscopic cholecystectomy for perforated cholecystitis. Patient will continue receive supportive care. Discussed the discharge home tomorrow.
[2021-03-14] MEDS: LEVOFLOXACIN 500MG-D5W PMX 500 MG in DEXTROSE/WATER 1 100ML.BAG IVPB SCH (14:07)
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
--- NOTE | 2021-03-14 16:17 | P.PN ---
Subjective Progress Note Date: 03/14/21 Principal diagnosis: Preoperative cardiac assessment The patient is a pleasant 65-year-old gentleman with history of cardiomyopathy and SVT who was seen yesterday for preop cardiac assessment before noncardiac surgery. He underwent cholecystectomy. The patient was seen this morning. He is hemodynamically stable. He remains in sinus mechanism. No symptoms of chest pain or chest discomfort and no shortness of breath no dizziness or lightheadedness or any feeling of heart racing or fluttering or presyncope or syncope. From the cardiovascular standpoint of view, we'll continue the current medical regimen and follow-up with the patient on when necessary K Objective - Vital Signs Vital signs: Vital Signs Temp 98.1 F 03/14/21 14:29 Pulse 53 L 03/14/21 14:29 Resp 17 03/14/21 14:29 BP 100/63 03/14/21 14:29 Pulse Ox 94 L 03/14/21 14:29 Intake & Output 03/13/21 03/14/21 03/14/21 18:59 06:59 18:59 Intake Total 1100 Output Total 25 850 30 Balance 1075 -850 -30 Intake: IV 1100 Output: Drainage 60 30 Right Abdomen 60 30 Urine 790 Estimated Blood Loss 25 Other: Voiding Method Urinal Urinal Urinal # Bowel Movements 0 - Constitutional General appearance: Present: no acute distress - Respiratory Respiratory: bilateral: CTA - Cardiovascular Rhythm: regular - Labs CBC & Chem 7: 03/14/21 06:41 03/14/21 06:41 Labs: Abnormal Lab Results - Last 24 Hours (Table) 03/14/21 03/14/21 Range/Units 06:41 06:41 WBC 17.77 H (4.50-10.00) X 10*3/uL RDW 14.9 H (11.5-14.5) % Immature Gran # 0.11 H (0.00-0.04) X 10*3/uL Neutrophils # 14.88 H (1.80-7.70) X 10*3/uL Monocytes # 1.51 H (0.20-1.00) X 10*3/uL Eosinophils # 0 L (0.04-0.35) X 10*3/uL Carbon Dioxide 20.5 L (21.6-31.8) mmol/L BUN 8.9 L (9.0-27.0) mg/dL Glucose 118 H (70-110) mg/dL Total Bilirubin 2.00 H (0.30-1.20) mg/dL Albumin 3.5 L (3.8-4.9) g/dL Albumin/Globulin Ratio 1.25 L (1.60-3.17) g/dL Assessment and Plan Assessment: Assessment #1 acute cholecystitis #2 SVT #3 history of cardiomyopathy #4 multiple comorbid conditions Plan #1 continue the current medical regimen #2 follow-up with the patient on when necessary case
--- NOTE | 2021-03-14 16:56 | ECHOF ---
Referral Reason:known systolic chf MEASUREMENTS -------- HEIGHT: 180.3 cm WEIGHT: 73.0 kg BP: 122/83 IVSd: 1.2 cm (0.6 - 1.1) LVIDd: 5.0 cm (3.9 - 5.3) LVPWd: 1.1 cm (0.6 - 1.1) IVSs: 1.5 cm LVIDs: 4.2 cm LVPWs: 1.5 cm FINDINGS -------- Sinus rhythm. This was a technically good study. Limited Study The left ventricular size is normal. There is borderline concentric left ventricular hypertrophy. Overall left ventricular systolic function is mild-moderately impaired with, an EF between 40 - 45 % . Global hypokinesis There is no pericardial effusion. CONCLUSIONS -------- 1. The left ventricular size is normal. 2. There is borderline concentric left ventricular hypertrophy. 3. Overall left ventricular systolic function is mild-moderately impaired with, an EF between 40 - 45 %. 4. Global hypokinesis SHERIFFS: Jazmine Morgan [facility]
[2021-03-15] MEDS: HYDROcodone/APAP 5-325MG 1 EACH TAB PO PRN ×5 (03:24→20:23)
[2021-03-15] MEDS: SODIUM CHLORIDE 0.9% 1,000 ML IV SCH ×2 (03:25→16:22)
[2021-03-15] MEDS: metroNIDAZOLE-NS PMX 500 MG in SALINE 1 100ML.BAG IVPB SCH ×3 (06:09→18:43)
[2021-03-15] MEDS: SACUBITRIL/VALSARTAN 24 MG-26 MG TABLET PO SCH ×2 (08:09→20:22)
[2021-03-15] MEDS: METOPROLOL SUCCINATE (ER) 25 MG TAB.ER.24H PO SCH (08:09)
[2021-03-15] MEDS: HEPARIN SODIUM,PORCINE/PF 5,000 UNIT/0.5 ML SYRINGE SQ SCH ×2 (08:09→16:29)
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
[2021-03-15] MEDS: HYDROmorphone 1 MG/ML 1 ML SYRINGE IVP PRN (10:29)
[2021-03-15 10:31] LABS: ALT 19 U/L (4-49); AST 29 U/L (17-59); African American GFR (CKD) >90 (>60 ml/min/1.73 sqM); Albumin 3.1 g/dL (3.5-5.0); Albumin/Globulin Ratio 0.9; Alkaline Phosphatase 112 U/L (38-126); Anion Gap 8 mmol/L; Blood Urea Nitrogen 10 mg/dL (9-20); Calcium 8.9 mg/dL (8.4-10.2); Carbon Dioxide 21 mmol/L (22-30); Chloride 107 mmol/L (98-107); Globulin 3.3 g/dL; Glucose 86 mg/dL (74-99); Non-African American GFR(CKD) >90 (>60 ml/min/1.73 sqM); Potassium 3.5 mmol/L (3.5-5.1); Sodium 136 mmol/L (137-145); Total Bilirubin 1.2 mg/dL (0.2-1.3); Total Protein 6.4 g/dL (6.3-8.2)
--- NOTE | 2021-03-15 10:35 | P.PN ---
Progress Note - Text Progress Note Date: 03/15/21 Patient still has complaints of abdominal wall pain. He has persistent leukocytosis white count 17,000. On exam her vital signs are stable. Abdomen soft there is mild tenderness throughout. There is no rebound or guarding. Incision sites are clean dry tach. Status post acute cholecystitis with gallbladder perforation. Patient still has significant postoperative pain. He has elevated white count. He will remain in the hospital for IV antibiotics.
[2021-03-15] MEDS: LEVOFLOXACIN 500MG-D5W PMX 500 MG in DEXTROSE/WATER 1 100ML.BAG IVPB SCH (14:14)
[2021-03-15] MEDS: CEFEPIME 2 GM in SODIUM CHLORIDE 0.9% 100 ML IVPB SCH (16:29)
[2021-03-15 19:09] LABS: Basophils # (A) 0.1 k/uL (0-0.2); Basophils % (A) 1 %; Eosinophils # (A) 0.1 k/uL (0-0.7); Eosinophils % (A) 2 %; HCT 44.9 % (39.0-53.0); HGB 14.4 gm/dL (13.0-17.5); Lymphocytes # (A) 2.1 k/uL (1.0-4.8); Lymphocytes % (A) 26 %; MCH 30.1 pg (25.0-35.0); MCHC 32.1 g/dL (31.0-37.0); MCV 93.7 fL (80.0-100.0); Monocytes # (A) 0.6 k/uL (0-1.0); Monocytes % (A) 7 %; Neutrophils % (A) 62 %; Platelet Count 312 k/uL (150-450); RDW 14.6 % (11.5-15.5); WBC 8.1 k/uL (3.8-10.6)
[2021-03-16] MEDS: CEFEPIME 2 GM in SODIUM CHLORIDE 0.9% 100 ML IVPB SCH ×4 (00:09→23:27)
[2021-03-16] MEDS: metroNIDAZOLE 500 MG TAB PO SCH ×5 (00:09→23:27)
[2021-03-16] MEDS: HEPARIN SODIUM,PORCINE/PF 5,000 UNIT/0.5 ML SYRINGE SQ SCH ×4 (00:09→23:30)
[2021-03-16] MEDS: HYDROcodone/APAP 5-325MG 1 EACH TAB PO PRN ×5 (00:15→20:16)
[2021-03-16] MEDS: SODIUM CHLORIDE 0.9% 1,000 ML IV SCH ×2 (04:35→15:51)
[2021-03-16] MEDS: SACUBITRIL/VALSARTAN 24 MG-26 MG TABLET PO SCH ×2 (08:09→20:17)
[2021-03-16] MEDS: METOPROLOL SUCCINATE (ER) 25 MG TAB.ER.24H PO SCH (08:09)
[2021-03-16 09:29] LABS: Basophils # (A) 0.06 X 10*3/uL (0.00-0.10); Basophils % (A) 1.1 %; Eosinophils # (A) 0.02 X 10*3/uL (0.04-0.35); Eosinophils % (A) 0.4 %; HCT 38.3 % (39.6-50.0); HGB 12.5 g/dL (13.0-17.0); Lymphocytes % (A) 25.1 %; MCH 28.7 pg (27.0-32.0); MCHC 32.6 g/dL (32.0-37.0); Mean Platelet Volume 10.4 fL (9.5-12.2); Monocytes # (A) 0.64 X 10*3/uL (0.20-1.00); Monocytes % (A) 11.5 %; Neutrophils # (A) 3.44 X 10*3/uL (1.80-7.70); Neutrophils % (A) 61.5 %; Platelet Count 315 X 10*3/uL (140-440); RBC 4.35 X 10*6/uL (4.40-5.60); RDW 14.6 % (11.5-14.5); WBC 5.58 X 10*3/uL (4.50-10.00)
--- NOTE | 2021-03-16 12:53 | P.PN ---
Subjective Progress Note Date: 03/16/21 CHIEF COMPLAINT: Abdominal pain HISTORY OF PRESENT ILLNESS: This a 65-year-old -Irish male who presented to the emergency department with upper quadrant abdominal pain associ ated with vomiting and diarrhea. The patient was found to have evidence of acute cholecystitis on CT of the abdomen. Patient is postop day #3 for laparoscopic cholecystectomy with findings of perforated acute cholecystitis. Has a history of hepatitis C which he was treated 2-[address] Chandler. WBC 5.5 hemoglobin 12.5 platelet count 315,000. LFTs normal. He has been afebrile. He is passing flatus, no bowel movement. He reports surgical tenderness. His been tolerating full liquid diet and would like to advance. PHYSICAL EXAM: VITAL SIGNS: Reviewed. GENERAL: Well-developed in no acute distress. HEENT: No sclera icterus. Extraocular movements grossly intact. Moist buccal mucosa. Head is atraumatic, normocephalic. ABDOMEN: Soft. Nondistended. Surgical tenderness. Incisions well approximated without drainage. CAROL drain intact with approximately 50 mL serosanguineous drainage. NEUROLOGIC: Alert and oriented. Cranial nerves II through XII grossly intact. ASSESSMENT: 1. Perforated acute cholecystitis status post laparoscopic cholecystectomy 2. History of hepatitis C, treated PLAN: 1. Continue symptomatic and supportive care 2. Continue pain medication as needed 3. May increase to regular diet 4. Continue the next per infectious disease recommendations 5. Encourage ambulation 6. Continue incentive spirometer 7. Possible discharge within the next 24 hours The impression and tyrese continue incentive spirometern of care has been dictated as directed. I performed a history and examination of this patient, discussed the same with the dictator. I agree with the dictator's note ,documented as a scribe. Any additional findings or plans will be noted. Objective - Vital Signs Vital signs: Vital Signs Temp 98.1 F 03/16/21 07:40 Pulse 71 03/16/21 07:40 Resp 18 03/16/21 08:00 BP 130/75 03/16/21 07:40 Pulse Ox 98 03/16/21 07:40 Intake & Output 03/15/21 03/16/21 03/16/21 18:59 06:59 18:59 Intake Total 900 Output Total 420 Balance 480 Intake: IV 900 Sodium Chloride 0.9% 1, 900 000 ml @ 75 mls/hr IV . [id number] [facility] Rx#:[id number] Output: Drainage 30 Right Abdomen 30 Urine 390 Other: Voiding Method Urinal Urinal # Voids 2 - Labs CBC & Chem 7: 03/16/21 06:53 03/15/21 09:49 Labs: Abnormal Lab Results - Last 24 Hours (Table) 03/16/21 Range/Units 06:53 RBC 4.35 L (4.40-5.60) X 10*6/uL Hgb 12.5 L (13.0-17.0) g/dL Hct 38.3 L (39.6-50.0) % RDW 14.6 H (11.5-14.5) % Eosinophils # 0.02 L (0.04-0.35) X 10*3/uL
--- NOTE | 2021-03-16 15:06 | PN ---
PROGRESS NOTE DATE OF SERVICE: 03/16/2021 REASON FOR FOLLOWUP: Acute perforated cholecystitis. INTERVAL HISTORY: The patient is afebrile. The patient is feeling slightly better. Still complaining of pain in the right upper quadrant area. No nausea, no vomiting. No chest pain, shortness of breath or cough. PHYSICAL EXAMINATION: Blood pressure 130/75 with a pulse of 71, temperature 98.1. He is 98% on room air. General description is an elderly male lying in bed in no distress. Respiratory system: Unlabored breathing, clear to auscultation anteriorly. Heart S1, S2. Regular rate and rhythm. Abdomen soft, no tenderness. Extremities: No edema of the feet. LABS: Hemoglobin is 12.5, white count 5.58, creatinine 0.49. DIAGNOSTIC IMPRESSION AND PLAN: Patient with acute perforated cholecystitis status post cholecystectomy. The patient did have penicillin allergy, however, tolerated cefepime, to continue while waiting for cultures to finalize. Will transition to oral antibiotic on discharge. Continue supportive care. MMODL / IJN: [id number] /
[2021-03-16 15:36] LABS: African American GFR (CKD) 130.4 (60.0-200.0); Albumin 3.1 g/dL (3.8-4.9); Albumin/Globulin Ratio 1.19 (1.60-3.17); Anion Gap 12.9 mmol/L (4.00-12.00); BUN/Creat Ratio 15.52 Ratio (12.00-20.00); Calcium 8.4 mg/dL (8.7-10.3); Globulin 2.6 g/dL (1.6-3.3); Non-African American GFR(CKD) 112.5 (60.0-200.0); Potassium 3.6 mmol/L (3.5-5.5); Total Bilirubin 0.7 mg/dL (0.30-1.20); Total Protein 5.8 g/dL (6.2-8.2)
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
[2021-03-17] MEDS: HYDROcodone/APAP 5-325MG 1 EACH TAB PO PRN ×4 (00:32→14:11)
[2021-03-17] MEDS: metroNIDAZOLE 500 MG TAB PO SCH ×2 (05:13→11:02)
[2021-03-17] MEDS: SODIUM CHLORIDE 0.9% 1,000 ML IV SCH (05:13)
[2021-03-17] MEDS: CEFEPIME 2 GM in SODIUM CHLORIDE 0.9% 100 ML IVPB SCH (08:14)
[2021-03-17] MEDS: METOPROLOL SUCCINATE (ER) 25 MG TAB.ER.24H PO SCH (08:15)
[2021-03-17] MEDS: HEPARIN SODIUM,PORCINE/PF 5,000 UNIT/0.5 ML SYRINGE SQ SCH (08:15)
[2021-03-17] MEDS: SACUBITRIL/VALSARTAN 24 MG-26 MG TABLET PO SCH (08:16)
[2021-03-17 08:49] VITALS: BP 108/75; PULSE 63; RESP 18; TEMP 98.8
[2021-03-17 09:27] LABS: Basophils # (A) 0.07 X 10*3/uL (0.00-0.10); Basophils % (A) 1.4 %; Eosinophils # (A) 0 X 10*3/uL (0.04-0.35); Eosinophils % (A) 0 %; HCT 39.3 % (39.6-50.0); HGB 12.8 g/dL (13.0-17.0); Lymphocytes # (A) 1.37 X 10*3/uL (0.90-5.00); Lymphocytes % (A) 26.6 %; MCH 28.2 pg (27.0-32.0); MCHC 32.6 g/dL (32.0-37.0); MCV 86.6 fL (80.0-97.0); Mean Platelet Volume 10.1 fL (9.5-12.2); Monocytes # (A) 1.03 X 10*3/uL (0.20-1.00); Neutrophils # (A) 2.67 X 10*3/uL (1.80-7.70); Neutrophils % (A) 51.6 %; Platelet Count 328 X 10*3/uL (140-440); RBC 4.54 X 10*6/uL (4.40-5.60); RDW 14.8 % (11.5-14.5); WBC 5.16 X 10*3/uL (4.50-10.00)
[2021-03-17 10:28] LABS: African American GFR (CKD) 121.8 (60.0-200.0); Albumin 3.1 g/dL (3.8-4.9); Albumin/Globulin Ratio 1.18 (1.60-3.17); Anion Gap 8.7 mmol/L (4.00-12.00); BUN/Creat Ratio 8.56 Ratio (12.00-20.00); Blood Urea Nitrogen 5.2 mg/dL (9.0-27.0); Calcium 8.5 mg/dL (8.7-10.3); Carbon Dioxide 23.2 mmol/L (21.6-31.8); Globulin 2.6 g/dL (1.6-3.3); Non-African American GFR(CKD) 105.1 (60.0-200.0); Potassium 3.8 mmol/L (3.5-5.5); Total Bilirubin 0.6 mg/dL (0.30-1.20); Total Protein 5.7 g/dL (6.2-8.2)
--- NOTE | 2021-03-17 12:17 | P.DS ---
Providers Date of admission: 03/12/21 17:33 Expected date of discharge: 03/17/21 Attending physician: Leonel Alarcon Consults: 03/12/21 17:34 Consult Physician Routine Consulting Provider: Elzbieta Richard Consult Reason/Comments: medical management Do you want consulting provider notified?: Yes 03/14/21 14:35 Consult Physician Routine Consulting Provider: Chandrakant Cruz Consult Reason/Comments: Abdominal sepsis Do you want consulting provider notified?: Yes Primary care physician: Elzbieta [facility] Course: Discharge diagnosis: Perforated acute cholecystitis status post laparoscopic cholecystectomy This is a 65-year-old -[place] male who presented to the emergency department with right upper quadrant pain associated with vomiting and diarrhea. The patient was found to have evidence of acute cholecystitis on CT of the abdomen. Patient is postop day #4 for laparoscopic cholecystectomy with findings of perforated acute cholecystitis. Patient is being followed by infectious disease and has been on Flagyl and cefepime, which will be changed to oral Cipro and Flagyl. Patient has been afebrile. Leukocytosis resolved. WBC 5.16 hemoglobin 12.8. Patient had a bowel movement today. He is passing gas. Tolerating a regular diet. He denies any nausea or vomiting, has some surgical pain but well tolerated. Patient has been up and ambulating. Approximately 10 mL from the CAROL drain with serosanguineous drainage. The impression and plan of care has been dictated as directed. I performed a history and examination of this patient, discussed the same with the dictator. I agree with the dictator's note ,documented as a scribe. Any additional findings or plans will be noted. Pertinent Studies: CT abdomen and pelvis impression states correlate for acute cholecystitis. Mild Small bowel ileus. Procedures: Laparoscopic cholecystectomy Patient Condition at Discharge: Good Plan - Discharge Summary Discharge Rx Participant: Yes New Discharge Prescriptions: New Ciprofloxacin HCl [Cipro] 500 mg PO Q12H 10 Days #20 tab metroNIDAZOLE [Flagyl] 500 mg PO Q8HR #30 tab HYDROcodone/APAP 5-325MG [[place] 5-325] 1 each PO Q6HR PRN 3 Days #12 tab PRN Reason: Moderate Pain Continue Ergocalciferol [Vitamin D2 (1250 Mcg = 53391 Iu)] 1,250 mcg PO MO HYDROcodone/APAP 7.5-325MG [[place] 7.5-325] 1 tab PO Q6HR PRN 3 Days #10 tab PRN Reason: pain Losartan-Hctz 50-12.5 mg [Hyzaar 50-12.5] 1 tab PO DAILY Metoprolol Succinate (ER) [Toprol XL] 25 mg PO DAILY 30 Days #30 tablet Sacubitril/Valsartan [Entresto 24 mg-26 mg Tablet] 1 tab PO BID Nicotine 14Mg/24Hr Patch [Habitrol] 1 patch TRANSDERM DAILY PRN PRN Reason: Nicotine Cravings Discharge Medication List Ergocalciferol [Vitamin D2 (1250 Mcg = 57744 Iu)] 1,250 mcg PO MO 09/26/20 [History] HYDROcodone/APAP 7.5-325MG [[place] 7.5-325] 1 tab PO Q6HR PRN 3 Days #10 tab 01/23/21 [Rx] Metoprolol Succinate (ER) [Toprol XL] 25 mg PO DAILY 30 Days #30 tablet 01/25/21 [Rx] Losartan-Hctz 50-12.5 mg [Hyzaar 50-12.5] 1 tab PO DAILY 03/12/21 [History] Nicotine 14Mg/24Hr Patch [Habitrol] 1 patch TRANSDERM DAILY PRN 03/12/21 [History] Sacubitril/Valsartan [Entresto 24 mg-26 mg Tablet] 1 tab PO BID 03/12/21 [History] Ciprofloxacin HCl [Cipro] 500 mg PO Q12H 10 Days #20 tab 03/17/21 [Rx] HYDROcodone/APAP 5-325MG [[place] 5-325] 1 each PO Q6HR PRN 3 Days #12 tab 03/17/21 [Rx] metroNIDAZOLE [Flagyl] 500 mg PO Q8HR #30 tab 03/17/21 [Rx] Follow up Appointment(s)/Referral(s): Leonel Alarcon MD [Medical Doctor] - 1 Week Ezlbieta Richard MD [Primary Care Provider] - 1-2 days Patient Instructions/Handouts: *Surgery [facility] - Laparoscopic Cholecystectomy Discharge Instructions Activity/Diet/Wound Care/Special Instructions: Keep the CAROL drain in until follow-up with Dr. Alarcon. Empty daily. May shower but no tub bathing. No heavy lifting or strenuous activity greater than 10 pounds. Discharge Disposition: HOME SELF-CARE
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
== END 2021-03-17 15:06 | disposition home or self-care (01) | DRG 418 ==
LOC: EC 14:06 → 5NMEDONC 17:33 → 4SSUR 20:31
PROVIDERS: ADMIT Surgery; ATTEND Surgery
PROC: 0FT44ZZ Resection of Gallbladder, Percutaneous Endoscopic Approach (ICD-10-PCS; principal; 2021-03-13 07:30)
DX: K81.0 Acute cholecystitis (principal); I42.8 Other cardiomyopathies; I47.1 Supraventricular tachycardia; I50.22 Chronic systolic (congestive) heart failure; K56.7 Ileus, unspecified; K82.A2 Perforation of gallbladder in cholecystitis; F17.200 Nicotine dependence, unspecified, uncomplicated; Z20.822 Contact with and (suspected) exposure to COVID-19; I25.10 Atherosclerotic heart disease of native coronary artery without angina pectoris; Z89.512 Acquired absence of left leg below knee; M54.9 Dorsalgia, unspecified
CPT/HCPCS: 36415; 74177; 80053; 81003; 82150; 83605; 83690; 85025; 85610; 85730; 87635; 88304; 93005; 93308; 96361; 96374; 96375; 99285

== ENCOUNTER → 2021-03-23 | Outpatient (CLI) | payer MEDICARE, OTHER ==
[2021-03-23 10:53] LABS: HCT 46.5 % (39.0-53.0); HGB 14.1 gm/dL (13.0-17.5); Hypochromasia Slight; MCH 28.8 pg (25.0-35.0); MCHC 30.2 g/dL (31.0-37.0); MCV 95.2 fL (80.0-100.0); Mean Platelet Volume 7.1; Platelet Count 450 k/uL (150-450); RBC 4.88 m/uL (4.30-5.90); RDW 13.9 % (11.5-15.5); WBC 5.2 k/uL (3.8-10.6)
[2021-03-23 11:01] LABS: African American GFR (CKD) >90 (>60 ml/min/1.73 sqM); Anion Gap 7 mmol/L; Blood Urea Nitrogen 7 mg/dL (9-20); Carbon Dioxide 29 mmol/L (22-30); Chloride 102 mmol/L (98-107); Non-African American GFR(CKD) >90 (>60 ml/min/1.73 sqM); Potassium 5.7 mmol/L (3.5-5.1); Sodium 138 mmol/L (137-145)
== END | disposition home or self-care (01) ==
LOC: LABPAT 09:25
PROVIDERS: ATTEND Internal Medicine Clinical Cardiac Electrophysiology
DX: Z01.812 Encounter for preprocedural laboratory examination (principal)
CPT/HCPCS: 80051; 82565; 84520; 85027

== ENCOUNTER → 2021-04-02 | Outpatient (CLI) | payer MEDICARE, OTHER ==
[2021-04-02 16:45] LABS: African American GFR (CKD) 122.3 (60.0-200.0); Anion Gap 11.4 mmol/L (4.00-12.00); BUN/Creat Ratio 15.33 Ratio (12.00-20.00); Blood Urea Nitrogen 9.2 mg/dL (9.0-27.0); Calcium 9.8 mg/dL (8.7-10.3); Carbon Dioxide 24.6 mmol/L (21.6-31.8); Non-African American GFR(CKD) 105.5 (60.0-200.0); Potassium 5.8 mmol/L (3.5-5.5)
== END | disposition home or self-care (01) ==
LOC: LABWHC1 08:03
PROVIDERS: ATTEND Nurse Practitioner Adult Health
DX: I10 Essential (primary) hypertension (principal)
CPT/HCPCS: 36415; 80048

== ENCOUNTER 2021-04-21 12:31 | Day surgery (SDC) | payer MEDICARE, OTHER ==
[2021-04-14 10:44] VITALS: BMI 22.6
[~2021-04-21 12:31] MED LIST changes: -ACETAMINOPHEN TAB 500 MG TAB PO PRN; -DEXAMETHASONE SOD PHOSPHATE 4 MG/ML 1 ML VIAL IV ONE; -HEPARIN SODIUM,PORCINE/PF 5,000 UNIT/0.5 ML SYRINGE SQ PRN; +LACTATED RINGERS 1,000 ML IV SCH; -MIDAZOLAM 2 MG/2 ML VIAL IV PRN; -ONDANSETRON 4 MG/2 ML VIAL IVP ONE; -SCOPOLAMINE 1.5MG/72HR PATCH TRANSDERM ONE; +SODIUM CHLORIDE 0.9% 1,000 ML IV SCH; -VANCOMYCIN 1,000 MG in SODIUM CHLORIDE 0.9% 250 ML IVPB PRN
[2021-04-21] MEDS ORDERED: HEPARIN SODIUM,PORCINE 5,000 UNIT/ML 1 ML VIAL ONE (15:07)
[2021-04-21] MEDS ORDERED: MIDAZOLAM 2 MG/2 ML VIAL ONE (15:07)
[2021-04-21] MEDS ORDERED: fentaNYL (PF) 50 MCG/ML 2 ML AMP ONE (15:07)
[2021-04-21] MEDS ORDERED: LIDOCAINE 1% INJ 10MG/ML (20 ML MDV) ONE (15:12)
[2021-04-21] MEDS ORDERED: LIDOCAINE 1% INJ 10MG/ML (20 ML MDV) SQ ONE (15:37)
[2021-04-21] MEDS ORDERED: ADENOSINE 3 MG/ML 4 ML VIAL IVP ONE (16:13)
[2021-04-21] MEDS ORDERED: ACETAMINOPHEN IV (For NPO) 1,000 MG in EMPTY BAG 1 BAG IVPB ONE (17:23)
[2021-04-21] MEDS ORDERED: ACETAMINOPHEN TAB 325 MG TAB PO PRN (17:23)
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
--- NOTE | 2021-04-21 17:36 | P.EPPROC ---
- EP Procedure Note Electrophysiology Procedure Note: Diagnosis Dual AV betzy physiology Antegrade spontaneously pocket conduction Antegrade 1-2 AV conduction with persistently elevated heart rates Resultant tachycardia mediated cardio myopathy Left ventricular ejection fraction 35-40% Symptomatic heart failure Final diagnosis Dual AV betzy physiology Abnormal antegrade fast pathway conduction that cannot support safe one-to-one AV conduction Preferential antegrade slow pathway conduction during sinus rhythm Procedure details Patient was brought to the EP lab in a fasting state. Written informed consent was obtained prior to the procedure. The right and left groins were prepped and draped as a protocol and venous sheaths were placed The patient was in sinus rhythm around 700 ms, IL interval was 532 ms with antegrade conduction of the slow pathway QRS width 105 ms and QT interval 375 ms AH interval was prolonged and HV interval was 48 ms During antegrade fast pathway conduction, AH interval was 97 ms AV node block of the slow pathway noted at 660 ms Block in the fast pathway ranged from 400-490 ms during the response of the testing VA Wenckebach block greater than 600 ms No SVT induced Drug infusion with IV adenosine, 6 mg, resulted in antegrade slow pathway block but also intermittent fast pathway block Evaluation revealed a fast pathway that could not support consistent 1-1 AV conduction safely This was discussed with the patient and his Ablation of the slow pathway was deferred at this point Venous sheaths were removed and hemostasis assured with Vascade closure device Recommend Biventricular pacemaker implantation Slow pathway ablation 6 weeks thereafter This will result in improvement in LV function, prevention of persistent elevated heart rates as well as management of intermittent AVNRT
[2021-04-21] MEDS: HYDROcodone/APAP 7.5-325MG 1 EACH TAB PO PRN (19:27)
[2021-04-22] MEDS: HYDROcodone/APAP 7.5-325MG 1 EACH TAB PO PRN ×2 (01:43→07:35)
[2021-04-22 07:27] VITALS: BP 135/83; PULSE 43; RESP 18; TEMP 97.4
--- NOTE | 2021-04-22 17:28 | DS ---
DISCHARGE SUMMARY This is a 65-year-old male patient who was admitted for evaluation and management of dual AV betzy physiology with 1:2 conduction, persistent tachycardia and cardiomyopathy. He had evidence of dual AV betzy physiology. However, his fast pathway conduction was poor and slow pathway ablation was not performed due to risk of bradycardia secondary to AV block. He is doing well today. His blood pressure is normal. Heart sounds are normal. Rhythm is irregular. His 12-lead EKG shows evidence of dual AV betzy physiology with 1:2 conduction intermittently as well as block in both the intermittently with block in the fast as well as in the slow AV node. PLAN: Discharge home today and schedule for a biventricular pacemaker and thereafter slow pathway modification will be performed. He will follow up in the office in a week's time for a groin check. His groin has healed well. Heart sounds are normal. Breath sounds are clear. MMODL / IJN: [id number] /
== END 2021-04-22 09:27 | disposition home or self-care (01) ==
LOC: CATHEP 12:31 → 6NMEDSUR 17:43 → CATHEP 04-22 09:27
PROVIDERS: ATTEND Internal Medicine Clinical Cardiac Electrophysiology
DX: I44.30 Unspecified atrioventricular block (principal); Z20.822 Contact with and (suspected) exposure to COVID-19; I25.10 Atherosclerotic heart disease of native coronary artery without angina pectoris; K44.9 Diaphragmatic hernia without obstruction or gangrene
CPT/HCPCS: 93623; 93620; 84132; 87635; C1894; C1769 ×2; C1760 ×2; C1730 ×3; J2001

== ENCOUNTER → 2021-05-04 | Outpatient (CLI) | payer MEDICARE, OTHER ==
[2021-05-04 09:19] LABS: African American GFR (CKD) >90 (>60 ml/min/1.73 sqM); Anion Gap 7 mmol/L; Blood Urea Nitrogen 10 mg/dL (9-20); Carbon Dioxide 28 mmol/L (22-30); Chloride 105 mmol/L (98-107); Non-African American GFR(CKD) >90 (>60 ml/min/1.73 sqM); Sodium 140 mmol/L (137-145)
[2021-05-04 09:29] LABS: HCT 46.1 % (39.0-53.0); HGB 14.7 gm/dL (13.0-17.5); MCH 29.5 pg (25.0-35.0); MCHC 31.8 g/dL (31.0-37.0); MCV 92.7 fL (80.0-100.0); Mean Platelet Volume 7.5; Platelet Count 282 k/uL (150-450); RBC 4.97 m/uL (4.30-5.90); WBC 3.4 k/uL (3.8-10.6)
== END | disposition home or self-care (01) ==
LOC: LABPAT 08:28
PROVIDERS: ATTEND Internal Medicine Clinical Cardiac Electrophysiology
DX: Z01.812 Encounter for preprocedural laboratory examination (principal); I42.9 Cardiomyopathy, unspecified
CPT/HCPCS: 80051; 82565; 84520; 85027

== ENCOUNTER 2021-06-08 09:27 | Day surgery (SDC) | payer MEDICARE, OTHER ==
[2021-06-01 15:18] VITALS: BMI 22.7
[~2021-06-08 09:27] MED LIST changes: +CLINDAMYCIN 600 MG in SODIUM CHLORIDE 0.9% 250 ML IRRIGATION PRN; +CLINDAMYCIN 900 MG in DEXTROSE 5% IN WATER 50 ML IVPB PRN; +LIDOCAINE 1% INJ 10MG/ML (20 ML MDV) ONE
[2021-06-08 09:52] VITALS: RESP 16; TEMP 98.5
[2021-06-08 10:17] LABS: African American GFR (CKD) >90 (>60 ml/min/1.73 sqM); Anion Gap 8 mmol/L; Blood Urea Nitrogen 7 mg/dL (9-20); Calcium 9.2 mg/dL (8.4-10.2); Carbon Dioxide 24 mmol/L (22-30); Chloride 109 mmol/L (98-107); Glucose 91 mg/dL (74-99); Non-African American GFR(CKD) >90 (>60 ml/min/1.73 sqM); Sodium 141 mmol/L (137-145)
[2021-06-08 10:20] LABS: Potassium 4.3 mmol/L (3.5-5.1)
[2021-06-08 10:30] LABS: HCT 44.7 % (39.0-53.0); HGB 14.4 gm/dL (13.0-17.5); MCH 29.4 pg (25.0-35.0); MCHC 32.1 g/dL (31.0-37.0); MCV 91.6 fL (80.0-100.0); Mean Platelet Volume 7.7; Platelet Count 286 k/uL (150-450); RBC 4.88 m/uL (4.30-5.90); RDW 14.7 % (11.5-15.5); WBC 3.4 k/uL (3.8-10.6)
[2021-06-08] MEDS ORDERED: HYDROmorphone (PF) 1 MG/ML ONE (11:19)
[2021-06-08] MEDS ORDERED: PHENYLEPHRINE-0.9% NACL SYG 1,000 MCG/10 ML SYRINGE ONE (11:19)
[2021-06-08] MEDS ORDERED: MIDAZOLAM 2 MG/2 ML VIAL ONE (11:19)
[2021-06-08] MEDS ORDERED: PROPOFOL 10 MG/ML 20 ML VIAL IV ONE (11:19)
[2021-06-08] MEDS ORDERED: fentaNYL (PF) 50 MCG/ML 2 ML AMP ONE (11:19)
[2021-06-08] MEDS ORDERED: IOPAMIDOL-370 50ML BTL INJ ONE (11:41)
[2021-06-08] MEDS ORDERED: LIDOCAINE 1% INJ 10MG/ML (20 ML MDV) SQ ONE ×2 (11:59→12:30)
[2021-06-08 12:35] LABS: Lymphocytes # (M) 2.45 k/uL (1.0-4.8); Monocytes # (M) 0.27 k/uL (0-1.0); Neutrophils # (M) 0.68 k/uL (1.3-7.7); Neutrophils % (M) 20 %; Nucleated Red Blood Cells 0 /100 WBC (0-0); Total Cells Counted 100
[2021-06-08 12:40] LABS: RBC Morphology Normal
[2021-06-08] MEDS ORDERED: ACETAMINOPHEN TAB 325 MG TAB PO PRN (14:22)
[2021-06-08] MEDS ORDERED: ACETAMINOPHEN IV (For NPO) 1,000 MG in EMPTY BAG 1 BAG IVPB ONE (14:22)
[2021-06-08] MEDS ORDERED: HYDROmorphone 1 MG/ML 1 ML SYRINGE ONE (14:26)
[2021-06-08] MEDS ORDERED: METOPROLOL SUCCINATE (ER) 50 MG TAB.ER.24H PO SCH (14:30)
--- NOTE | 2021-06-08 14:35 | P.EPPROC ---
- EP Procedure Note Electrophysiology Procedure Note: Diagnosis Bradycardia, standard pacemaker will result in RV pacing >40% Procedure His bundle/ biventricular pacemaker implantation Details Patient was brought to the EP lab in a fasting state. Written informed consent was obtained prior to the procedure. Conscious sedation provided by anesthesia team IV antibiotics administered. Local anesthesia administered. A 4 cm incision made in the pectoral area. Subfascial pocket made. Venous access obtained Venous sheaths placed. "*/] placed in the right heart Atrial lead position the right atrial appendage. Medtronic screw-in lead, 52 cm. P waves 2 mV, pacing impedance 551 ohms, pacing threshold 0.5 V at 0.4 ms RV lead position in the RV apex. Medtronic screw-in lead 58 cm. R waves 10 mV, pacing impedance 665 ohms, pacing threshold 0.75 V at 0.4 ms. His bundle lead screwed in the His bundle area. Medtronic His bundle lead screwed in. Pacing impedance 456 ohms. Pacing threshold 0.5 V at 1 ms Selective capture Biventricular pacemaker device connected to the leads and placed in the subfascial pocket Patient tolerance the procedure well without acute complications
--- NOTE | 2021-06-08 14:39 | P.EPPROC ---
- EP Procedure Note Electrophysiology Procedure Note: Left upper extremity venogram 50 mL IV dye injected in the left arm Patent left subclavian, left axillary veins Patent innominate vein to the SVC Plan Proceed with His bundle/biventricular pacemaker implantation
--- NOTE | 2021-06-08 15:43 | XR ---
EXAMINATION TYPE: XR chest 1V portable DATE OF EXAM: 06/08/2021 COMPARISON: Chest x-ray 01/24/2021 HISTORY: Lead placement check TECHNIQUE: Single frontal view of the chest is obtained. FINDINGS: There is been interval placement of a generator in the left pectoral region, there are carter ds in the right atrium and ventricle. No evident pneumothorax or pleural effusion. Surgical clips are present in the right axillary region. Cardiac mediastinal silhouette is stable. There are overlying artifacts. Aorta is dense. IMPRESSION: No evident complication status post lead placement
[2021-06-08] MEDS ORDERED: CLINDAMYCIN 900 MG in DEXTROSE 5% IN WATER 50 ML IVPB SCH ×2 (16:00)
[2021-06-08 17:49] VITALS: BP 79/52; PULSE 82
== END 2021-06-08 17:23 | disposition home or self-care (01) ==
LOC: CATHEP 09:27
PROVIDERS: ATTEND Internal Medicine Clinical Cardiac Electrophysiology
DX: R00.1 Bradycardia, unspecified (principal); I42.9 Cardiomyopathy, unspecified; I47.1 Supraventricular tachycardia; F17.210 Nicotine dependence, cigarettes, uncomplicated; I08.1 Rheumatic disorders of both mitral and tricuspid valves; Z88.0 Allergy status to penicillin
CPT/HCPCS: 33225; 33208; 80048; 85025; 87635; 71045; C1769 ×3; C1887; C1892; C1898; C2621; J2250; J2001; J3010; J1170; J0131; J2370; J2704; Q9967

== ENCOUNTER → 2021-06-19 | Outpatient (CLI) | payer MEDICARE, OTHER ==
--- NOTE | 2021-06-19 15:58 | US ---
EXAMINATION TYPE: US thyroid st tissue head/neck DATE OF EXAM: 06/19/2021 COMPARISON: NONE CLINICAL HISTORY: E04.2 thyroid nodule. GLAND SIZE: Right Lobe: 5.8 x 2.6 x 2.0 cm Overall Parenchyma: homogenous Left Lobe: 5.9 x 3.1 x 2.1 cm Overall Parenchyma: homogeneous Isthmus Thickness: 0.6 cm NODULES RIGHT: # of nodules measured on right: 1. 1.4 X 1.0 x 1.3 cm, upper, solid or almost completely solid, hypoechoic nodule, which is wider t hawley tall, with smooth margins, without echogenic foci. Prior size:1.6 X 0.9 x 1.4 cm upper 2. 1.2 X 1.3 x 1.0 cm, mid, mixed cystic and solid, hypoechoic nodule, which is taller than wide, w ith lobulated or irregular margins, without echogenic foci. Prior size: 1.2 X 1.3 x 1.4 cm mid 3. 0.6 X 0.5 x 0.6 cm, lower , hypoechoic nodule, which is wider than tall, with smooth margins, wi thout echogenic foci. Prior size:0.9 X 0.5 x 1.0cm lower LEFT: # of nodules measured on left: 2 1. .1.0 X 0.6 x 0.8 cm, superior, isoechoic nodule, which is wider than tall, with smooth margins, without echogenic foci. Prior size:1.1 X 0.5 x 0.9cm 2. 3.1 X 1.7 x 2.1 cm, lower mid, solid or almost completely solid, hypoechoic nodule, which is wide r than tall, with smooth margins, without echogenic foci. TR 4 Prior size:3.9 X 2.8 x 2.3cm ISTHMUS: # of nodules measured in the isthmus: 0 Bilateral neck scanned, no evidence of lymphadenopathy. IMPRESSION: Moderately suspicious nodule lower pole left lobe thyroid. Biopsy is recommended. 2017 ACR TI-RADS LEVEL: TR-RADS 4 - Moderately Suspicious: Follow if > 1 cm, FNA if > 1.5 cm *Highest TI-RADS level nodule reported
[2021-06-19 23:31] LABS: T4, Free (Free Thyroxine) 1.23 ng/dL (0.800-1.800)
== END | disposition home or self-care (01) ==
LOC: RADUSWWP 14:59
PROVIDERS: ATTEND Internal Medicine
DX: E04.2 Nontoxic multinodular goiter (principal)
CPT/HCPCS: 36415; 76536; 84439; 84443

== ENCOUNTER → 2021-07-15 | Outpatient (CLI) | payer MEDICARE, OTHER ==
--- NOTE | 2021-07-15 17:00 | US ---
EXAMINATION TYPE: US liver DATE OF EXAM: 07/15/2021 COMPARISON: NONE CLINICAL HISTORY: K74.60 CIRRHOSIS OF LIVER. cholecystectomy, no symptoms, cirrhosis EXAM MEASUREMENTS: Liver Length: 15.4 cm Gallbladder Wall: Surgically absent CBD: 1.2 cm Right Kidney: 10.7 x 4.3 x 3.9 cm Pancreas: 4mm duct Liver: wnl Gallbladder: Surgically absent Evidence for sonographic Vela's sign: no CBD: wnl Right Kidney: septated cyst inferior pole = 3.7cm IMPRESSION: 1. Complex cyst inferior pole right kidney. Follow up is recommended.
== END | disposition home or self-care (01) ==
LOC: RADUSWWP 08:49
PROVIDERS: ATTEND Internal Medicine Gastroenterology
DX: N28.1 Cyst of kidney, acquired (principal); Z90.49 Acquired absence of other specified parts of digestive tract
CPT/HCPCS: 76705

== ENCOUNTER 2021-07-20 11:38 | Day surgery (SDC) | payer MEDICARE, OTHER ==
[2021-07-17 09:23] VITALS: BMI 22.4
[~2021-07-20 11:38] MED LIST changes: -CLINDAMYCIN 600 MG in SODIUM CHLORIDE 0.9% 250 ML IRRIGATION PRN; -CLINDAMYCIN 900 MG in DEXTROSE 5% IN WATER 50 ML IVPB PRN; -LACTATED RINGERS 1,000 ML IV SCH; -LIDOCAINE 1% INJ 10MG/ML (20 ML MDV) ONE
[2021-07-20] MEDS ORDERED: SODIUM CHLORIDE 0.9% 1,000 ML IV ONE (11:47)
[2021-07-20 12:17] LABS: HCT 47.4 % (39.0-53.0); HGB 14.7 gm/dL (13.0-17.5); MCH 29.3 pg (25.0-35.0); MCHC 31.1 g/dL (31.0-37.0); MCV 94.3 fL (80.0-100.0); Mean Platelet Volume 7.1; Platelet Count 213 k/uL (150-450); RBC 5.03 m/uL (4.30-5.90); RDW 14.1 % (11.5-15.5); WBC 4.3 k/uL (3.8-10.6)
[2021-07-20 12:35] LABS: African American GFR (CKD) >90 (>60 ml/min/1.73 sqM); Anion Gap 7 mmol/L; Blood Urea Nitrogen 11 mg/dL (9-20); Calcium 9.4 mg/dL (8.4-10.2); Carbon Dioxide 28 mmol/L (22-30); Chloride 104 mmol/L (98-107); Glucose 88 mg/dL (74-99); Non-African American GFR(CKD) >90 (>60 ml/min/1.73 sqM); Potassium 4.1 mmol/L (3.5-5.1); Sodium 139 mmol/L (137-145)
[2021-07-20 13:59] LABS: Basophils # (M) 0.04 k/uL (0-0.2); Eosinophils # (M) 0.13 k/uL (0-0.7); Lymphocytes # (M) 2.49 k/uL (1.0-4.8); Neutrophils # (M) 1.03 k/uL (1.3-7.7); Neutrophils % (M) 24 %; Nucleated Red Blood Cells 0 /100 WBC (0-0); RBC Morphology Normal; Total Cells Counted 100
[2021-07-20] MEDS ORDERED: fentaNYL (PF) 50 MCG/ML 2 ML AMP ONE (14:13)
[2021-07-20] MEDS ORDERED: CLINDAMYCIN 150 MG/ML 4 ML VIAL ONE (14:13)
[2021-07-20] MEDS ORDERED: MIDAZOLAM 2 MG/2 ML VIAL ONE (14:13)
[2021-07-20] MEDS ORDERED: ISOPROTERENOL 250 MCG/1.25 ML SYR IV ONE (14:13)
[2021-07-20] MEDS ORDERED: HEPARIN SODIUM (1,000 UNIT/ML) 1,000 UNIT in SODIUM CHLORIDE 0.9% 1,000 ML IRRIGATION ONE (14:15)
[2021-07-20] MEDS ORDERED: LIDOCAINE 1% INJ 10MG/ML (20 ML MDV) ONE ×2 (14:30→16:05)
[2021-07-20] MEDS ORDERED: LIDOCAINE 1% INJ 10MG/ML (20 ML MDV) SQ ONE ×2 (15:09→16:11)
[2021-07-20] MEDS ORDERED: BACLOFEN 10 MG TAB PO PRN (16:21)
--- NOTE | 2021-07-20 16:43 | P.EPPROC ---
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 Written informed consent was obtained prior to the procedure. Conscious sedation provided anesthesia IV antibiotics administered. Biventricular pacemaker interrogated and reprogrammed to VVI 40 beats a minute Venous access obtained in the right groin Diagnostic catheter and mapping and ablation cath was placed in the high right atrium, Jan sinus, His bundle area and right ventricle Isuprel drip and The patient had recurrent episodes of spontaneous even betzy reentrant tachycardia Slow pathway mapping was performed His bundle tagged, coronary sinus os tagged RF ablation performed anterior the coronary sinus, at the level of the Jan sinus Slow pathway was eliminated and antegrade conduction proceeded down the fast pathway Sinus node cycle length 679 ms, QRS 112 ms, QT 626 ms Normal HV interval AV node Wenckebach block for 90 ms from the coronary sinus Exit stimulation from the high right atrium performed and from the coronary sinus No further AV node reentry induced Isuprel started wide open VA Wenckebach block still greater than 600 ms AV node Wenckebach block on Isuprel 400 ms No inducible SVT. Venous sheaths removed Perclose and Vascade applied and hemostasis achieved Biventricular pacemaker interrogated. His bundle pacing preferentially programmed Normal function Result Successful slow pathway ablation with elimination of AV betzy reentrant tachycardia Poor antegrade fast pathway conduction Biventricular pacemaker reprogrammed to His bundle pacing. Normal function
[2021-07-20] MEDS: HYDROcodone/APAP 7.5-325MG 1 EACH TAB PO PRN ×2 (18:08→22:30)
[2021-07-20] MEDS: SACUBITRIL/VALSARTAN 24 MG-26 MG TABLET PO SCH (20:40)
[2021-07-20 23:44] VITALS: RESP 16
[2021-07-21] MEDS: ACETAMINOPHEN TAB 325 MG TAB PO PRN ×2 (02:06→09:34)
[2021-07-21] MEDS: HYDROcodone/APAP 7.5-325MG 1 EACH TAB PO PRN ×2 (04:35→10:58)
[2021-07-21] MEDS ORDERED: METOPROLOL SUCCINATE (ER) 25 MG TAB.ER.24H PO SCH (09:00)
[2021-07-21] MEDS: SACUBITRIL/VALSARTAN 24 MG-26 MG TABLET PO SCH (09:29)
--- NOTE | 2021-07-21 13:04 | P.DS ---
<Antonina Domingo Siria - Last Filed: 07/21/21 13:01> Hospital Course: This is a 66-year-old male who underwent successful slow pathway ablation with elimination of AV betzy reentry tachycardia and reprogramming of biventricular pacemaker to His bundle pacing. The patient was examined this morning by Dr. Cunningham. EKG was reviewed. The patient is doing well postprocedure with no palpitations noted. Vital signs are stable. Patient was cleared for discharge home today by Dr. Girard. Please see EMR for further hospital course details. 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 Signing provider agrees with the documented findings, assessment, and plan of care. Plan - Discharge Summary Discharge Rx Participant: Yes New Discharge Prescriptions: Continue Ergocalciferol [Vitamin D2 (1250 Mcg = 83121 Iu)] 50,000 mcg PO MO HYDROcodone/APAP 7.5-325MG [[place] 7.5-325] 1 tab PO Q6HR PRN 3 Days #10 tab PRN Reason: pain Baclofen 10 mg PO BID PRN PRN Reason: Pain Metoprolol Succinate (ER) [Toprol XL] 25 mg PO DAILY Sacubitril/Valsartan [Entresto 24 mg-26 mg Tablet] 1 tab PO BID Discharge Medication List Ergocalciferol [Vitamin D2 (1250 Mcg = 80759 Iu)] 50,000 mcg PO MO 09/26/20 [History] HYDROcodone/APAP 7.5-325MG [[place] 7.5-325] 1 tab PO Q6HR PRN 3 Days #10 tab 01/23/21 [Rx] Sacubitril/Valsartan [Entresto 24 mg-26 mg Tablet] 1 tab PO BID 03/12/21 [History] Baclofen 10 mg PO BID PRN 07/17/21 [History] Metoprolol Succinate (ER) [Toprol XL] 25 mg PO DAILY 07/17/21 [History] Follow up Appointment(s)/Referral(s): Carlo Murphy MD [STAFF PHYSICIAN] - 1 Week Activity/Diet/Wound Care/Special Instructions: Post EP study - Ablation instructions 1. Keep access sites dry for 2 days. 2. No heavy lifting or straining for 2 days. 3. Avoid bending the hips repeatedly for 2 days. 4. You may go up and down stairs slowly Call if the following is noted 1. Bleeding, increasing swelling or pain at the access sites. 2. Increasing chest discomfort, especially upon taking a deep breath. 3. Increasing shortness of breath, at rest or with exertion. 4. Undue cough / phlegm 5. Difficulty or pain while swallowing. 6. Pain or change in color in the extremities. 7. Fever, chills, rigors. 8. Increasing headache or neurologic symptoms. 9. Dizziness, fainting, palpitations Follow-up with Dr. Dr. Murphy in 1-2 weeks <Anthony Cunningham - Last Filed: 07/21/21 14:06> Providers Attending physician: Anthony Cunningham Primary care physician: [facility] Course: Patient interviewed and examined by me. Data reviewed. Impression and plan formulated by me and discussed with nurse practitioner Nurse practitioner transcribed note on my behalf
[2021-07-21 13:05] VITALS: BP 130/79; PULSE 60; TEMP 98.4
== END 2021-07-21 16:36 ==
LOC: CATHEP 11:38 → 3SCARD 15:55 → CATHEP 07-21 16:36
PROVIDERS: ATTEND Internal Medicine Clinical Cardiac Electrophysiology
DX: I47.1 Supraventricular tachycardia (principal); I25.10 Atherosclerotic heart disease of native coronary artery without angina pectoris; Z95.0 Presence of cardiac pacemaker; F17.200 Nicotine dependence, unspecified, uncomplicated; Z20.822 Contact with and (suspected) exposure to COVID-19
CPT/HCPCS: 93623; 93650; 80048; 85025; 87635; C1894; C1769 ×3; C1760 ×2; C1766; C1730; C1732; J2250; J2001; J3010; J1644

== ENCOUNTER 2021-08-30 06:57 | Emergency (ER) | payer MEDICARE, OTHER ==
[2021-08-30 07:02] VITALS: BP 141/87; PULSE 86; RESP 20; TEMP 98.2
[2021-08-30] MEDS ORDERED: HYDROcodone/APAP 5-325MG 1 EACH TAB PO STA (07:44)
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
== END 2021-08-30 07:58 | disposition home or self-care (01) ==
LOC: EC 06:57
DX: G89.29 Other chronic pain (principal); M54.50 Low back pain, unspecified; I25.10 Atherosclerotic heart disease of native coronary artery without angina pectoris; F17.200 Nicotine dependence, unspecified, uncomplicated; Z79.899 Other long term (current) drug therapy
CPT/HCPCS: 99283

== ENCOUNTER → 2021-10-21 | Outpatient (CLI) | payer MEDICARE, OTHER ==
[2021-10-21 14:49] LABS: HCT 42.9 % (39.6-50.0); HGB 13.5 g/dL (13.0-17.0); MCH 28.3 pg (27.0-32.0); MCHC 31.5 g/dL (32.0-37.0); MCV 89.9 fL (80.0-97.0); Mean Platelet Volume 9.1 fL (9.5-12.2); NRBC Per 100 WBC 0 /100 WBCS (0.0-0.0); Platelet Count 257 X 10*3/uL (140-440); RBC 4.77 X 10*6/uL (4.40-5.60); RDW 15.4 % (11.5-14.5)
[2021-10-21 14:59] LABS: African American GFR (CKD) 121.8 (60.0-200.0); Albumin 4.2 g/dL (3.8-4.9); Albumin/Globulin Ratio 1.19 (1.60-3.17); Anion Gap 6.9 mmol/L (10.00-18.00); BUN/Creat Ratio 13.15 Ratio (12.00-20.00); Blood Urea Nitrogen 7.8 mg/dL (9.0-27.0); Calcium 9.9 mg/dL (8.7-10.3); Carbon Dioxide 28.6 mmol/L (20.0-27.5); Globulin 3.5 g/dL (1.6-3.3); Non-African American GFR(CKD) 105.1 (60.0-200.0); Total Bilirubin 0.7 mg/dL (0.30-1.20); Total Protein 7.6 g/dL (6.2-8.2)
== END | disposition home or self-care (01) ==
LOC: LABWHC1 09:49
PROVIDERS: ATTEND Internal Medicine Gastroenterology
DX: K74.60 Unspecified cirrhosis of liver (principal)
CPT/HCPCS: 36415; 80053; 82105; 85027

== ENCOUNTER → 2021-10-23 | Outpatient (CLI) | payer MEDICARE, OTHER ==
[2021-10-23 15:11] LABS: ALT 19 U/L (10-49); AST 18 U/L (14-35); African American GFR (CKD) 123.5 (60.0-200.0); Albumin 4.3 g/dL (3.8-4.9); Albumin/Globulin Ratio 1.28 (1.60-3.17); Alkaline Phosphatase 175 U/L (41-126); BUN/Creat Ratio 12.69 Ratio (12.00-20.00); Blood Urea Nitrogen 7.3 mg/dL (9.0-27.0); Carbon Dioxide 27.7 mmol/L (20.0-27.5); Chloride 107 mmol/L (96-109); Chol/HDL Ratio 3.28 Ratio; Globulin 3.4 g/dL (1.6-3.3); Glucose 87 mg/dL (70-110); LDL Cholesterol,Calculated 106.9 mg/dL (0.0-131.0); Non-African American GFR(CKD) 106.5 (60.0-200.0); Potassium 5.4 mmol/L (3.5-5.5); Sodium 142 mmol/L (135-145); Total Protein 7.7 g/dL (6.2-8.2)
== END | disposition home or self-care (01) ==
LOC: LABWHC1 07:37
PROVIDERS: ATTEND Nurse Practitioner Adult Health
DX: I42.8 Other cardiomyopathies (principal)
CPT/HCPCS: 36415; 80053; 80061

== ENCOUNTER 2021-12-18 11:55 | Emergency (ER) | payer MEDICARE, OTHER ==
[2021-12-18 12:33] VITALS: RESP 18; TEMP 98.5
[2021-12-18] MEDS ORDERED: ORPHENADRINE 30 MG/ML 2 ML VIAL IVP STA (13:19)
[2021-12-18] MEDS ORDERED: KETOROLAC 15 MG/ML 1 ML VIAL IM STA (13:19)
[2021-12-18] MEDS ORDERED: DEXAMETHASONE SOD PHOSPHATE 10 MG/ML 1 ML VIAL IM STA (13:19)
--- NOTE | 2021-12-18 14:06 | XR ---
MR spine HISTORY: Low back pain Correlation to prior exam 09/26/2020 And 3 views the lumbar spine Surgical clips are present in the right upper quadrant. Lumbar vertebral bodies show stable height, a lignment, bone mineralization. There is an anterolisthesis grade 1 L4-5. Sclerosis is present in the posterior elements of the lumbar spine consistent with facet arthropathy. Retrolisthesis grade 1 L5-S 1. There is loss of disc height L4-5 and possibly L5-S1. There is multilevel spondylosis. IMPRESSION: Degenerative disc disease, facet arthropathy.
[2021-12-18] MEDS ORDERED: HYDROcodone/APAP 7.5-325MG 1 EACH TAB PO ONE (14:14)
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
[2021-12-18 15:00] VITALS: BP 128/79; PULSE 79
== END 2021-12-18 15:04 | disposition home or self-care (01) ==
LOC: EC 11:55
DX: M54.9 Dorsalgia, unspecified (principal); I25.10 Atherosclerotic heart disease of native coronary artery without angina pectoris; F17.210 Nicotine dependence, cigarettes, uncomplicated; Z88.0 Allergy status to penicillin; Z88.6 Allergy status to analgesic agent; Z79.899 Other long term (current) drug therapy
CPT/HCPCS: 72100; 99283; 96374; 96372 ×2; J1100; J2360; J1885

== ENCOUNTER 2022-04-13 08:16 | Day surgery (SDC) | payer MEDICARE, OTHER ==
[~2022-04-13 08:16] MED LIST changes: +LACTATED RINGERS 1,000 ML IV SCH; +LIDOCAINE 1% (10MG/ML) FOR IV START INTRADERMA PRN; -SODIUM CHLORIDE 0.9% 1,000 ML IV SCH
[2022-04-13] MEDS ORDERED: LACTATED RINGERS 1,000 ML IV ONE (08:50)
[2022-04-13 08:51] VITALS: TEMP 98
[2022-04-13] MEDS ORDERED: LIDOCAINE 2% INJ 20 MG/ML (2 ML VIAL) ONE (09:18)
[2022-04-13] MEDS ORDERED: PROPOFOL 10 MG/ML 20 ML VIAL IV ONE (09:18)
--- NOTE | 2022-04-13 09:31 | P.PCN ---
Date of Procedure: 04/13/22 Procedure(s) Performed: BRIEF HISTORY: Patient is a 66-year-old, pleasant, -[place] male scheduled for an upper endoscopy as a part of screening for esophageal varices. He has history of liver cirrhosis secondary to chronic hep C and alcoholism. PROCEDURE PERFORMED: Esophagogastroduodenoscopy with biopsy. PREOPERATIVE DIAGNOSIS: Cirrhosis of the liver/screening for esophageal varices. IV sedation per anesthesia. PROCEDURE: After informed consent was obtained, the patient was brought into the endoscopy unit. IV sedation was administered by Anesthesia under continuous monitoring. Initially the Olympus GIF-140 video endoscope was inserted into the mouth. Esophagus intubated without any difficulty. It was gradually advanced into the stomach and duodenum and carefully examined. The bulb and the second part of the duodenum appeared normal. The scope at this time was withdrawn to the stomach, adequately insufflated with air, and upon careful examination, mucosa of the antrum, body and mild patchy areas of gastritis and biopsies were done from this area. Mucosa of the cardia and the fundus appeared normal. The gastric varices seen. The scope was then withdrawn into the esophagus. The GE junction was located at 39 cm from the incisors. There was a 5 limited and of Trevino's appearing mucosa proximal to the GE junction which was biopsied. The esophagus appeared normal. There were no erosions or ulcerations seen. No evidence of esophageal varices and the patient tolerated the procedure well. IMPRESSION: 1. No evidence of esophageal or gastric varices. 2. Mild antral Gastritis. 3. 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 He was advised to follow up with the biopsy results. Recommend repeat EGD in 3 years to evaluate for esophageal varices..
[2022-04-13 09:50] VITALS: BP 117/76; PULSE 82; RESP 18
== END 2022-04-13 10:11 | disposition home or self-care (01) ==
LOC: ORWHC2ENDO 08:16
PROVIDERS: ATTEND Internal Medicine Gastroenterology
DX: K29.50 Unspecified chronic gastritis without bleeding (principal); K74.60 Unspecified cirrhosis of liver; K22.70 Barrett's esophagus without dysplasia; B18.2 Chronic viral hepatitis C; Z98.890 Other specified postprocedural states
CPT/HCPCS: 88305; 88342; 43239; J2704; J2001

== ENCOUNTER → 2022-04-27 | Outpatient (CLI) | payer MEDICARE, OTHER ==
--- NOTE | 2022-04-27 16:13 | CT ---
EXAMINATION TYPE: CT brain wo con DATE OF EXAM: 04/27/2022 COMPARISON: 06/26/2011 HISTORY: 66 year-old male H53.461 abnormal eye exam TECHNIQUE: Examination was done in axial plane without intravenous contrast. Coronal and sagittal r econstructions performed. CT DLP: 995.5 mGycm Automated exposure control for dose reduction was used. FINDINGS: There is no evidence of acute intracranial hemorrhage, acute ischemic changes, mass, mass-effect, or extra-axial fluid collection. There is no effacement of cerebral sulci or basal subarachnoid cister ns. There is no hydrocephalus. There is no midline shift. Gifford-white matter distinction is preserv ed. Paranasal sinuses and mastoid air cells well pneumatized. Orbits and globes are intact. Stable probab le calcification along the medial superior left preseptal region. This can be correlated with physica l exam findings. It seems to be having present in 2012 as well. IMPRESSION: No acute intracranial abnormality seen. Apparent calcification along the medial superior left presept al region. This seems to have been present in 2012 as well. Correlate with physical exam findings.
== END | disposition home or self-care (01) ==
LOC: RADCTMAIN 12:51
PROVIDERS: ATTEND Ophthalmology
DX: H53.461 Homonymous bilateral field defects, right side (principal)
CPT/HCPCS: 70450

== ENCOUNTER → 2022-05-26 | Outpatient (CLI) | payer MEDICARE, OTHER ==
[2022-05-26 19:18] LABS: Albumin 4.4 g/dL (3.8-4.9); Albumin/Globulin Ratio 1.36 (1.60-3.17); Anion Gap 8.3 mmol/L (10.00-18.00); BUN/Creat Ratio 11.26 Ratio (12.00-20.00); Blood Urea Nitrogen 7.4 mg/dL (9.0-27.0); Calcium 9.8 mg/dL (8.7-10.3); Carbon Dioxide 29.3 mmol/L (20.0-27.5); Globulin 3.2 g/dL (1.6-3.3); Non-African American GFR(CKD) 100.9 (60.0-200.0); Total Bilirubin 0.8 mg/dL (0.30-1.20); Total Protein 7.6 g/dL (6.2-8.2)
[2022-05-26 20:15] LABS: HCT 40.3 % (39.6-50.0); HGB 13.3 g/dL (13.0-17.0); MCV 87.8 fL (80.0-97.0); Mean Platelet Volume 9.7 fL (9.5-12.2); NRBC Per 100 WBC 0 /100 WBCS (0.0-0.0); Platelet Count 249 X 10*3/uL (140-440); RBC 4.59 X 10*6/uL (4.40-5.60); RDW 15.8 % (11.5-14.5); WBC 4.36 X 10*3/uL (4.50-10.00)
== END | disposition home or self-care (01) ==
LOC: LABWHC1 11:24
PROVIDERS: ATTEND Internal Medicine Gastroenterology
DX: K74.60 Unspecified cirrhosis of liver (principal)
CPT/HCPCS: 36415; 80053; 82105; 85027

== ENCOUNTER → 2022-05-27 | Outpatient (CLI) | payer MEDICARE, OTHER ==
--- NOTE | 2022-05-27 10:13 | US ---
EXAMINATION TYPE: US liver DATE OF EXAM: 05/27/2022 COMPARISON: 03/21/2018. 07/15/2021. CLINICAL HISTORY: 66-year-old male K74.60 UNSPECIFIED CIRRHOSIS. TECHNIQUE: Multiple sonographic images of the right upper quadrant are obtained. FINDINGS: EXAM MEASUREMENTS: Liver Length: 12.6 cm Gallbladder: Surgically absent CBD: 1.2 cm, similar to prior. Measured at 1.0 cm back on 03/21/2018. 1.1 cm on 07/15/2021. Right Kidney: 11.5 x 3.5 x 5.1 cm Pancreas: wnl. The previous dilated main pancreatic duct is no longer identified. Liver: No focal lesion identified. Gallbladder: Surgically absent CBD: Dilated along with intrahepatic biliary ductal dilatation as well. Right Kidney: lateral echogenic foci measuring 2mm, possible tiny nonobstructive calculus. There is a cyst measuring 2.7 x 2.5 x 2.9cm showing thin internal septation. No hydronephrosis. IMPRESSION: 1. Bile duct shows slight gradual increase in caliber now 1.2 cm versus 1.1 cm, previously. There is corresponding intrahepatic biliary ductal dilatation as well. This may be on a chronic postcholecyste ctomy basis. Correlate with alkaline phosphatase and bilirubin levels. 2. No sonographic evidence for hepatoma. 3. A stable 2.9 cm cyst within the right kidney. There is minimal associated complexity with thin int ernal septation.
== END | disposition home or self-care (01) ==
LOC: RADUSWWP 06:55
PROVIDERS: ATTEND Internal Medicine Gastroenterology
DX: K83.8 Other specified diseases of biliary tract (principal); K74.60 Unspecified cirrhosis of liver; N28.1 Cyst of kidney, acquired
CPT/HCPCS: 76705

== ENCOUNTER → 2022-06-07 | Outpatient (CLI) | payer MEDICARE, OTHER | END | disposition home or self-care (01) | LOC: LABPAT 07:34 | PROVIDERS: ATTEND Orthopaedic Surgery | DX: Z01.812 Encounter for preprocedural laboratory examination (principal); Z22.322 Carrier or suspected carrier of Methicillin resistant Staphylococcus aureus; M43.16 Spondylolisthesis, lumbar region; M47.816 Spondylosis without myelopathy or radiculopathy, lumbar region | CPT/HCPCS: 87070 ==

== ENCOUNTER 2022-06-15 05:45 | Day surgery (SDC) | payer MEDICARE, OTHER ==
[~2022-06-15 05:45] MED LIST changes: +ACETAMINOPHEN TAB 500 MG TAB PO PRN; +GABAPENTIN 300 MG CAP PO PRN; -LACTATED RINGERS 1,000 ML IV SCH; -LIDOCAINE 1% (10MG/ML) FOR IV START INTRADERMA PRN; +ONDANSETRON 4 MG/2 ML VIAL IVP PRN; +TRANEXAMIC ACID IN NACL,ISO-OS 1,000 MG in SALINE 1 100ML.BAG IVPB PRN
[2022-06-15] MEDS ORDERED: MIDAZOLAM 2 MG/2 ML VIAL IV PRN (06:11)
[2022-06-15] MEDS ORDERED: DEXAMETHASONE SOD PHOSPHATE 4 MG/ML 1 ML VIAL IV ONE (06:11)
[2022-06-15] MEDS ORDERED: ONDANSETRON 4 MG/2 ML VIAL IVP ONE (06:11)
[2022-06-15] MEDS ORDERED: SCOPOLAMINE 1 MG/72 HR PATCH TRANSDERM ONE (06:11)
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
[2022-06-15] MEDS ORDERED: LIDOCAINE 1% (10MG/ML) FOR IV START INTRADERMA ONE ×2 (06:40)
[2022-06-15] MEDS: LACTATED RINGERS 1,000 ML IV SCH (06:40)
[2022-06-15] MEDS ORDERED: PHENYLEPHRINE-0.9% NACL SYG 1,000 MCG/10 ML SYRINGE ONE (07:41)
[2022-06-15] MEDS ORDERED: SUCCINYLCHOLINE CHLORIDE 200 MG/10 ML VIAL IV ONE (07:41)
[2022-06-15] MEDS ORDERED: fentaNYL (PF) 50 MCG/ML 2 ML AMP ONE (07:41)
[2022-06-15] MEDS ORDERED: PROPOFOL 10 MG/ML 20 ML VIAL IV ONE (07:41)
[2022-06-15] MEDS ORDERED: TRANEXAMIC ACID IN NACL,ISO-OS 1,000 MG/100 ML BAG ONE (07:41)
[2022-06-15] MEDS ORDERED: MIDAZOLAM 2 MG/2 ML VIAL ONE (07:41)
[2022-06-15] MEDS ORDERED: HYDROmorphone (PF) 1 MG/ML ONE (07:41)
[2022-06-15] MEDS ORDERED: ROCURONIUM 10 MG/ML (5 ML VIAL) IV ONE (07:41)
[2022-06-15] MEDS ORDERED: LIDOCAINE 2% INJ 20 MG/ML (2 ML VIAL) ONE (07:41)
[2022-06-15] MEDS ORDERED: NEOSTIGMINE 1 MG/ML 10 ML VIAL ONE (07:41)
[2022-06-15] MEDS ORDERED: GLYCOPYRROLATE 0.2 MG/ML 2 ML VIAL ONE (07:41)
[2022-06-15 08:04] LABS: Basophils # (A) 0.1 k/uL (0-0.2); Basophils % (A) 2 %; Eosinophils # (A) 0.1 k/uL (0-0.7); Eosinophils % (A) 2 %; HCT 42.9 % (39.0-53.0); HGB 13.7 gm/dL (13.0-17.5); Lymphocytes # (A) 1.6 k/uL (1.0-4.8); Lymphocytes % (A) 54 %; MCH 28.9 pg (25.0-35.0); MCHC 31.9 g/dL (31.0-37.0); MCV 90.7 fL (80.0-100.0); Mean Platelet Volume 7.9; Monocytes # (A) 0.4 k/uL (0-1.0); Monocytes % (A) 12 %; Neutrophils # (A) 0.8 k/uL (1.3-7.7); Neutrophils % (A) 27 %; Platelet Count 224 k/uL (150-450); RBC 4.73 m/uL (4.30-5.90); RDW 14.3 % (11.5-15.5)
[2022-06-15 09:08] LABS: RBC Morphology Normal
[2022-06-15] MEDS ORDERED: THROMBIN (BOVINE) 5,000 UNIT VIAL TOPICAL ONE (09:18)
[2022-06-15] MEDS ORDERED: GELATIN SPONGE,ABSORB (LARGE) 1 EACH SPONGE TOPICAL ONE (09:18)
[2022-06-15] MEDS ORDERED: HEPARIN SODIUM IV ONE ×2 (10:15)
[2022-06-15] MEDS ORDERED: SODIUM CHLORIDE IV ONE ×2 (10:15)
--- NOTE | 2022-06-15 10:32 | P.OP ---
Date of Procedure: 06/15/22 Preoperative Diagnosis: 1. L4-5 grade I spondylolisthesis 2. L4-5 spondylosis with stenosis 3. RLE radiculopathy 4. LE weakness Postoperative Diagnosis: 1. L4-5 grade I spondylolisthesis 2. L4-5 spondylosis with stenosis 3. RLE radiculopathy 4. LE weakness Procedure(s) Performed: 1. L4-5 posteriolateral and interbody fusion (64046) 2. Instrumentation L4-5 (29823) 3. Insertion of biomehanical device L4-5 (75101) 4. L4-5 laminectomy, complete facetectomy and foraminotomy for decompression and cage placement (17404) Use of IONM Use of microscope Implants: -Globus creo screw/jose alberto -Zivation expandable cage -Autograft, Allograft, MagnatOs Anesthesia: GETA Surgeon: Hitesh Rodriguez Retail Event Assistant #1: Rashid Nina (Was present and assisted with all aspects of the case from positioning to dressing placement) Estimated Blood Loss (ml): 50 IV fluids (ml): 1,000 Urine output (ml): 250 Pathology: none sent Condition: stable Disposition: PACU Indications for Procedure: Mr. Nation is presenting for evaluation of low back pain. It was my pleasure to have seen and examined Mr. Nation. In our visit today we have had a chance to go over subjective complaints, physical examination findings and treatments including the natural course history without intervention and various interventional options. The patients imaging demonstrates: XRay Lumbar Multiview (AP, Lateral, Flexion, Extension) with AP pelvis; 5 views taken on 09/21/21 at [facility] of Lumbar Spine: this is reviewed in the office with the patient and demonstrates L4-5 and L5-S1 spondylolisthesis Grade I with motion on F/E films. There is reduction of the spondylolisthesis at L4-5 on extension films and accentuation to around 5 mm on flexion films. There is less mobility of L5-S1 but still some translation with f/e. No fractures noted. Pars elongation noted due to hypertrophic facets and facet arthropathy. No lesions noted. Disc height loss, sclerosis and subchondral cyst's noted. AP pelvis shows congruent pelvis no fracture MRI scan from 09/05/2020 at [facility] of Lumbar Spine: Remonstration of the L4-5 and L5-S1 grade I spondylolisthesis that are near reduced on this supine film. No lesions noted. bilateral foraminal stenosis at L4-S1 as well as central stenosis due to listhesis, disc bulges, ligamental hypertrophy, facet overgrowth, osteophytes and pars and lateral recess scarring. No other fractures or lesions noted. Disc dessication, height loss and dehydration noted. Spondylosis of L3-S1 noted. On physical exam, Mr. Nation demonstrates severely restricted lumbar ROM that is limiting functional testing. Patient does also demonstrate right lower extremity radiculopathy with L5-S1 dermatomal deficits. Patient ambulating independently but unsteady on his feet both due to his history of left lower extremity amputation and right lower extremity radiculopathy. I have explained to the patient that as their condition progresses it will cause further neurological deficits and eventual paralysis. Based on the patients imaging, physical exam, and the rapid progression and disabling nature of their symptoms, at this time I recommend surgery in the form or a: L4-S1 MITLIF I discussed the risk and benefits of this procedure at length with Mr. Nation. The patient agreed to considered pursuing the procedure abovementioned. Prior to surgery, she should follow up with her PCP (Cardio, ID, IM etc) for clearance. Questions were invited and answered, and the patient wishes to proceed as outlined below. Currently, I am recommendin. L4-L5 MIYALIJohanne Spoke with pt at length pre op. He would like to keep it as small as possible and does not want L5-S1 at this time. This is reasonable and we will do L4-5. He agrees and is comfortable with this. Description of Procedure: The patient was seen and examined in the preoperative area. All preoperative protocols were followed. Informed consent was obtained risks and benefits of the procedure were discussed at length. Risks including bleeding infection damage to the surrounding tissue and risk of reoperation were discussed with the patient. Risk of anesthesia up to and including was a discussed with the patient. These are outlined in the risk review. They were willing to accept these risks and all the risks of surgery. The patient was given a weight-based dose of antibiotics in the form of 2 g Ancef. The patient was seen and evaluated by the anesthesia team who deemed them fit for surgery. The site was marked, the patient was willing to proceed with the procedure. The patient was transferred to the operative suite by the Department of anesthesia. They were then drifted off to sleep by the department anesthesia and GETA was performed. The patient tolerated this well. Mcgrath catheter was placed by nursing staff, a-traumatically. Once confirmation of lines and ventilation the patient was transferred to a prone Tian table very carefully. All bony prominences including wrists, elbows, axilla, chest, hips, and thighs, and feet were padded very well. Special attention was paid to the genitalia, and these were padded accordingly. SCDs were placed on bilateral lower extremities and were connected. Arms were well padded and placed on arm boards up and out in the 90/90 position. Once in position, again we confirmed good ventilation capabilities and that lines were running appropriately. The patients Lumbar spine was then exposed. 1010s were placed outlining the incision site. Standard alcohol was used to clean the incision site and allowed to dry. C-arm was used to needle localize the pedicles at L4-5 and bio-zari the patient and confirm level for incision which was marked with a skin marker. Operative briefing was performed with all teams and everyone in agreement to proceed. The patient was then prepped and draped in a normal sterile fashion. Timeout was then performed, and all parties agreed with the procedure to be performed. C arm was then used to target pedicles bilaterally at L4 and L5. Jamshidi was used and bi-planar fluoroscopy was used to access L4 pedicles. Once accessed wires were placed in their void. This was repeated at L5 bilaterally. Skin incision was then made along these wires and perfect scalpel was used over the wire to create a path and measure screw length. Screws were then placed over wires on the contralateral side. Once screw was at the back of the body wire was removed. The screws were confirmed to be in good position on AP and lateral. We then tested screws and they all tested above 20 mA. Attention was then turned to interbody fusion at L4-5. Tubular retractor system was placed at the interspace of L4-5 using biplanar c arm. Once in position and dilated up to 26mm tube it was locked to the bed and confirmed in good position. Microscope was then brought in for visualization. Limited myomectomy was performed and laminectomy, complete facetectomy and foraminotomy performed at L4-5 using high speed nicole and Kerrison rongure. The ligamentum was removed and dural sac decompressed. Exiting and traversing roots visualized and decompressed. Neural elements were then protected, and disc space accessed with an osteotome. Sequential shaving then done under lateral imaging and complete discectomy performed using selma, pituitary and curette. Once good bleeding endplates accomplished and good height hinduism with trials, a combination of autograft, allograft and synthetic placed anterior in the disc space. The cage was then selected and impacted into place under lateral imaging. The cage was then expanded restoring height, lordosis and alignment. The cage was backfilled with bone graft through a funnel. The credit advisor removed and area inspected. Good cage placement, stable cage and no injuries. Area was irrigated copiously, and meticulous hemostasis achieved. The tubular retractor was then removed under direct visualization. Screws were then selected and placed over the previously placed wires on the ipsilateral side. (L5 screw on the right initially had poor purchace and this was retargeted. There was likely breakout laterally of the pedicle. On reposition there was better purchase and it still tested above 20 mA.) This was done in the fashion described above. Screws were then tested, and all tested above 20 mA. Shells were then placed on the tabs. Jose Alberto length was then measured, and rods selected. They were then placed through the MIS tabs, subfascial. These were then locked into place with set screws and final tightened. Jose Alberto holders removed and images taken showing good placement of rods good lordosis and hinduism of height. Tabs were broken off. Wounds were then copiously irrigated with NSS. [place] used for TP decortication and mixture of MagnatOs, allograft and autograft packed posterolateral. Facia was then closed with 0 Vircyl on a [employer] suture passer for MIS closure. Deep subq closed with 0 Vicryl. Superficial subq closed with 2-0 Vicryl and skin with zoila. Wound edges approximated very well. Wound was then cleaned with alcohol and dried. Wounds dressed in Optifoam dressings. The patient was then transferred off the table back to their hospital bed a- traumatically. They were extubated by the department of anesthesia. They were then transferred to PACU in stable condition having tolerated the procedure with no complications.
[2022-06-15] MEDS: HYDROmorphone 0.5 MG/0.5 ML SYRINGE IVP PRN ×3 (10:46→11:24)
--- NOTE | 2022-06-15 11:06 | FL ---
EXAMINATION TYPE: FL guidance operating room, XR lumbar spine 2 or 3V DATE OF EXAM: 06/15/2022 CLINICAL HISTORY: Low back pain. TECHNIQUE: Fluoroscopy. Intraoperative 2 views lumbar spine. COMPARISON: None. FINDINGS: Fluoroscopic guidance was provided during lumbar fusion procedure performed by Dr. Stoner son. A total of roughly 25 seconds of fluoroscopic time was utilized during the procedure and 4 spot images was acquired. Intraoperative images acquired show placement of metallic disc material and bilateral interpedicular rods at L4-L5 level. Stable subtle spondylolisthesis seen before and after procedure at this level on intraoperative images saved. IMPRESSION: As Above.
[2022-06-15] MEDS ORDERED: HYDROmorphone 0.5 MG/0.5 ML SYRINGE IVP ONE (11:13)
[2022-06-15] MEDS ORDERED: HYDROmorphone 0.5 MG/0.5 ML SYRINGE IVP PRN (11:23)
[2022-06-15] MEDS ORDERED: MAGNESIUM HYDROXIDE 2,400 MG/10 ML CUP PO PRN (11:23)
[2022-06-15] MEDS ORDERED: SENNOSIDES-DOCUSATE SODIUM 1 EACH TAB PO PRN (11:23)
[2022-06-15] MEDS ORDERED: ONDANSETRON 4 MG/2 ML VIAL IVP PRN (11:23)
[2022-06-15] MEDS ORDERED: HYDROcodone/APAP 7.5-325MG 1 EACH TAB PO PRN (11:26)
--- NOTE | 2022-06-15 14:44 | CT ---
EXAMINATION TYPE: CT lumbar spine wo con DATE OF EXAM: 06/15/2022 2:11 PM COMPARISON: Preoperative study 06/10/2020 HISTORY: lumbar fusion CT DLP: 620 mGycm Automated exposure control for dose reduction was used. Unenhanced CT of the lumbar spine was performed. Bone and soft tissue window settings are submitted as well as coronal and sagittal reconstructions. L1-L2: Normal disc space height. No disc herniation protrusion or central stenosis. No facet joint arthropathy. No evidence for foraminal encroachment. L2-L3: Normal disc space height. Mild left paracentral disc bulge without herniation. No evidence for central stenosis or left lateral recess stenosis. Neural foramen is patent. No facet joint arthropat hy. No evidence for foraminal encroachment. L3-L4: Normal disc space height. No disc herniation protrusion or central stenosis. No facet joint arthropathy. No evidence for foraminal encroachment. L4-L5: Postoperative changes of decompressive left-sided hemilaminectomy. Pedicular screws are in tyrese ce. Resultant streak artifact limits evaluation. Intervertebral body spacer is identified. Left later al epidural 10 x 4 mm bony fragment is seen posterior to the superior endplate of L5. This is seen be st on image 57 of 86 series 201. There is 2 mm grade 1 anterolisthesis L4 and L5 unchanged from prior study. L5-S1: Grade 1 retrolisthesis L5 on S1 at 4.3 mm is unchanged. Posterior fusion defect noted at this level. Mild degenerative disc space narrowing with posterior disc bulge. No evidence for disc herniat ion or central stenosis. Foramina are patent bilaterally. Postsurgical soft tissue changes seen. Soft tissue air and fluid identified. Right renal cystic lesio n. Cholecystectomy clips in place. Aneurysmal dilatation of the distal thoracic aorta at 3.6 cm. IMPRESSION: 1 postoperative changes of decompressive left-sided hemilaminectomy at L4-5. There is grade 1 anterol isthesis unchanged from prior study. 10 x 4 mm bony fragment as noted above. 2. Grade 1 retrolisthesis L5 on S1 unchanged with associated degenerative disc disease.
[2022-06-15] MEDS: HYDROcodone/APAP 10-325MG 1 EACH TAB PO PRN ×2 (15:56→19:49)
[2022-06-15] MEDS: GABAPENTIN 300 MG CAP PO SCH ×2 (16:13→21:00)
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
[2022-06-15] MEDS: HYDROmorphone 1 MG/ML 1 ML SYRINGE IVP PRN ×2 (21:00→23:46)
[2022-06-15] MEDS: SACUBITRIL/VALSARTAN 24 MG-26 MG TABLET PO SCH (21:41)
[2022-06-15] MEDS: BACLOFEN 10 MG TAB PO PRN (23:46)
[2022-06-16] MEDS: HYDROcodone/APAP 10-325MG 1 EACH TAB PO PRN (05:01)
[2022-06-16] MEDS: HYDROmorphone 1 MG/ML 1 ML SYRINGE IVP PRN ×2 (05:11→08:24)
[2022-06-16] MEDS: BACLOFEN 10 MG TAB PO PRN (05:11)
[2022-06-16 06:54] VITALS: BP 93/54; PULSE 92; RESP 16; TEMP 99.3
[2022-06-16] MEDS: GABAPENTIN 300 MG CAP PO SCH (08:21)
[2022-06-16] MEDS: SACUBITRIL/VALSARTAN 24 MG-26 MG TABLET PO SCH (08:22)
--- NOTE | 2022-06-16 09:15 | P.PN ---
Subjective Progress Note Date: 06/16/22 Principal diagnosis: 1. L4-5 grade I spondylolisthesis 2. L4-5 spondylosis with stenosis 3. RLE radiculopathy 4. LE weakness Patient seen and examined this morning. Patient is resting in bed. Patient states his pain is controlled on current regimen. He states that he has been up with staff assistance to chair. Patient states he is tolerating activity well. Patient does have his own LSO brace at the bedside. Patient is looking forward to working with physical therapy and being discharged later today. Patient denies any numbness or tingling to his lower extremities. Patient denies any fever/chills, nausea/vomiting, or chest pain. Objective - Vital Signs Vital signs: Vital Signs Temp 99.3 F 06/16/22 06:53 Pulse 92 06/16/22 06:53 Resp 16 06/16/22 06:53 BP 93/54 06/16/22 06:53 Pulse Ox 98 06/16/22 06:53 FiO2 Intake & Output 06/15/22 06/16/22 06/16/22 18:59 06:59 18:59 Intake Total 1351 920 Output Total 1045 1200 Balance 306 -280 Weight 70.9 kg Intake: IV 1351 Intake, IV Titration 200 Amount Lactated Ringers 1,000 ml 200 @ 20 mls/hr IV .Q24H [facility] Rx#:[id number] Oral 720 Output: Urine 895 1200 Uretheral (Mcgrath) 1200 Estimated Blood Loss 150 Other: Voiding Method Indwelling Catheter - Exam Physical Examination General: The patient is awake and alert, in no acute distress Skin: Skin is warm and dry with no obvious rashes or lesions. Hairy patches absent, no dorsal skin dimples, no cafe au lait spots, and 2 surgical incisions are lumbar region, surgical dressings are clean dry and intact. Eye: Pupils are equal, round and reactive to light, extra-ocular movements are intact; there is normal conjunctiva bilaterally. Neck: The neck is supple, there is no tenderness and ROM intact. Cardiovascular: There is a regular rate and rhythm. No murmur, rub or gallop is appreciated. Respiratory: Lungs are clear to auscultation, respirations are non-labored, breath sounds are equal. Gastrointestinal: Soft, non-distended, non-tender abdomen. Back: There is no tenderness to palpation in the midline, paralumbar, parathoracic or buttocks region. There is no obvious deformity . Musculoskeletal: ROM limited secondary to pain and stiffness from surgical procedure. Muscle strength in all major muscle groups of bilateral upper extremities 5/5, right lower extremities 4/5. Neurological: CN 2-12 intact. There are no obvious motor or sensory deficits. Movement and coordination equal and intact. Sensory exam to light touch intact C5-T1 and intact from L2-S1. Reflexes 2/4 in bilateral upper and right lower extremity. Negative Hoffmans, babinski, and clonus signs. Psychiatric: Cooperative, appropriate mood & affect, normal judgment. - Labs CBC & Chem 7: 06/15/22 06:45 Labs: Abnormal Lab Results - Last 24 Hours (Table) 06/15/22 Range/Units 06:45 Neutrophils # 0.8 L (1.3-7.7) k/uL Assessment and Plan Assessment: Postop day 1: L4-L5 posterior lateral with interbody fusion 1. L4-5 grade I spondylolisthesis 2. L4-5 spondylosis with stenosis 3. RLE radiculopathy 4. LE weakness Plan: -Appreciate leadership development consultant and team management. -Activity: Ambulate QID, OOB all meals, up and about, limit lifting bending twisting to less than 5 lbs. Use walker or cane if needed for stability. -Daily PT/OT, increase ambulation strength and balance. -Brace when up and about, not needed in bed or chair -Pain control: Adequate at this time -Meds: reviewed -GI ppx: senna, Miralax -DVT PPX: OK to restart Heparin tonight -Hygiene: Shower today. Maintain dressing clean and dry. Meticulous cleaning after BMs away from the incision site -Encourage IS 10x/hr -Dispo: Anticipate discharge home today with homecare *I reviewed and discussed this case with my attending Dr. Rodriguez, whom has reviewed this chart and films and is in agreement with assessment and plan of care as outlined above. I have personally seen and examined the patient, performed the documentation and the assessment and plan as written. Number of minutes spent on the visit: 15m
--- NOTE | 2022-06-16 09:41 | P.DS ---
Providers Date of admission: 06/15/2022 Expected date of discharge: 06/16/22 Attending physician: Hitesh Rodriguez DO Consults: 06/15/22 11:26 Consult Physician Routine Consulting Provider: Elzbieta Richard Reason/Comments: Medical Management Do you want consulting provider notified?: Yes Primary care physician: Elzbieta Richard [facility] Course: Hospital Course: The patient was evaluated preoperatively and found to have the diagnosis of L4- L5 spondylolisthesis, right lower extremity radiculopathy. They underwent appropriate preoperative care and were willing to undergo the intended procedure. They underwent a successful L4-L5 posterior lateral interbody fusion, were recovered appropriately and sent to the floor. While on the floor they worked with physical therapy, occupational therapy and nursing to enhance their recovery experience. Their pain was well controlled through their stay and they were started on appropriate medications, DVT ppx modalities, activity and dietary needs. Daily labs were monitored closely, and transfusions were only used when necessary. Medicine as well as other consulting services have made the ir input and have helped with our team approach and multidisciplinary care. PT milestones have been met and passed and they have made the recommendation of home with home care for this patient and treating providers agree with this care path. The patient will be discharged home with appropriate medications, instructions and follow-up information and in stable condition. Patient Condition at Discharge: Good Plan - Discharge Summary Discharge Rx Participant: Yes New Discharge Prescriptions: New HYDROcodone/APAP 10-325MG [Bethel 10-325] 1 tab PO Q4-6H PRN #56 tab PRN Reason: Pain Sennosides/Docusate Sodium [Senna Plus 8.6-50 mg Tablet] 1 each PO DAILY PRN #20 tablet PRN Reason: Constipation cefaDROXiL [Duricef] 500 mg PO Q12HR 3 Days #6 cap Gabapentin 300 mg PO TID #90 cap No Action Ergocalciferol [Vitamin D2 (1250 Mcg = 74461 Iu)] 50,000 mcg PO MO HYDROcodone/APAP 7.5-325MG [Bethel 7.5-325] 1 tab PO Q6HR PRN 3 Days #10 tab PRN Reason: pain Baclofen 10 mg PO BID PRN PRN Reason: Pain Sacubitril/Valsartan [Entresto 24 mg-26 mg Tablet] 1 tab PO BID Discharge Medication List Ergocalciferol [Vitamin D2 (1250 Mcg = 31905 Iu)] 50,000 mcg PO MO 09/26/20 [History] HYDROcodone/APAP 7.5-325MG [Bethel 7.5-325] 1 tab PO Q6HR PRN 3 Days #10 tab 01/23/21 [Rx] Sacubitril/Valsartan [Entresto 24 mg-26 mg Tablet] 1 tab PO BID 03/12/21 [History] Baclofen 10 mg PO BID PRN 07/17/21 [History] Gabapentin 300 mg PO TID #90 cap 06/16/22 [Rx] HYDROcodone/APAP 10-325MG [Bethel 10-325] 1 tab PO Q4-6H PRN #56 tab 06/16/22 [Rx] Sennosides/Docusate Sodium [Senna Plus 8.6-50 mg Tablet] 1 each PO DAILY PRN #20 tablet 06/16/22 [Rx] cefaDROXiL [Duricef] 500 mg PO Q12HR 3 Days #6 cap 06/16/22 [Rx] Follow up Appointment(s)/Referral(s): Hitesh Rodriguez DO [Doctor of Osteopathic Medicine] - 2 Weeks Elzbieta Richard MD [Primary Care Provider] - 1 Week Activity/Diet/Wound Care/Special Instructions: Spine Discharge and Recovery Instructions Date of Surgery: 06/15/2022 Medications: See medication list All medication refills should be obtained through your primary care doctor or your clinic spine surgeon. Please discuss prescription refills at your follow up appointment. Do not call the hospital for medication refills. Dressing: Leave your dressing in place for a total of 5 days post operatively. Then you may remove your dressing and leave open to air. Keep the area clean and if not able to keep area clean, then cover with sterile gauze and tape. Showering: You may shower 3 days after your procedure allowing soap and water to run over incision. Do not scrub. Do not soak. Blot dry. Follow up: Please confirm a follow up appointment with your surgeon 3 weeks post operatively. Please make an appointment to follow up with your PCP in 1-2 weeks after surgery for evaluation 3 phase, 3-week plan POST OP WEEKS 1-3 1. Lifting/carrying/pushing/pulling limited to less than 5 pounds. 2. Do not sit for longer than 15 minutes at one time. Get up and walk around. Prolonged sitting is NOT advised. If you lay down, see if you can tolerate laying down on you front (belly side) 3. Walk for periods of 15 minutes = 1 mile but no longer; do it multiple times times each day. 4. Ice your low back after activity. POST OP WEEKS 3-6 1. Lifting limited to less than 20 pounds. 2. Do not sit for longer than 30 minutes at a time. Frequently change positions. Use a sit-to stand workstation or take frequent breaks from sitting if you have returned to work. 3. Walk for 30 minutes each day. If possible, do these three or more times a day POST OP WEEKS 6+ At your 6-week appointment we will give you a physical therapy referral to focus on a core stabilization and strengthening program. You should also work on leg & buttock strengthening, hamstring & quadriceps stretching, and continue a low impact aerobic activity program such as swimming, walking, or riding a stationary bicycle. During the initial 6 weeks after your surgery, you are at the highest risk of re-injuring your spine. You should generally avoid BLTs (bending, lifting and twisting combination motions) and follow the above guidelines to reduce the chance of reinjury. You can anticipate post op appointments in our office at approximately 3 weeks and 6 weeks after your surgery. INCISION CARE: If your incision is not draining you do NOT need to cover it with a dressing. Keep your incision clean, dry and intact. In most cases, we apply skin glue, zoila or sutures to the incision at the time of surgery. This will be like a crust or have the appearance of a scab and will fall off in time on its own. The stitches or zoila need to be removed at 3 weeks post op appointment. You may begin to shower 3 days after surgery (this allows the glue to richardson well). However, please avoid scrubbing the incision site or peeling off any of the skin glue. This will ensure optimal healing of your incision. Also, during this time avoid soaking the incision area in water - this includes swimming pools, hot tubs or baths. No ointments, lotions or oils on the incision until your surgeon allows. Leave zoila, sutures or glue in place. Neurological dysfunction that comes on suddenly can also be a sign of a stroke. Below some common symptoms of a stroke are listed: B - balance difficulty such as sudden onset walking or leaning to one side - NEW E - eye problem such as sudden double vision or trouble seeing on one side - NEW F - Facial weakness or numbness on one side - NEW A - Arm or leg weakness or numbness on one side - NEW S - Slurred speech or difficulty with word finding - NEW T - Time is BRAIN! Call 911 as soon as you recognize these symptoms Diet: Consume a regular diet rich in vegetables and lean protein such as chicken or fish. You should consume in a ratio of approximately 20% fats|40% carbohydrates|40%protein. Vegetables, sweet potatoes, brown rice or quinoa are examples of good carbohydrates. Chips, white bread, cookies and sweets/sugar are examples of bad carbohydrates. Limit your bad carbs, go wild with good carbs. "Life's Simple 7" Guidelines as per [place] [employer] These will help you reclaim your life after surgery and marine electrician helper in your recovery, keeping in mind your restrictions. (1) Get Active. Physical activity can help people lose weight, control high blood pressure and cholesterol, feel emotionally better, and sleep better. (2) Control Cholesterol. Avoid a diet high in saturated fat, trans fat, & cholesterol. Limit whole milk & cream, ice cream, butter, egg yolks, processed meats (like sausage and hot dogs), and fatty meats. Choose healthy foods that are low in saturated fat, trans fat and cholesterol which include: Fruits and vegetables, fiber rich grain products (like whole grain pasta and brown rice), lean meat such as chicken, fish, nuts, seeds, and legumes. (3) Eat Better. Eat small portions. Shop at the grocery with a list and do not stray from it. Tips for a healthy diet include: Limit sodium intake to less than 1500mg daily, avoid prepackaged, processed, and fast foods, choose a diet rich in fruits, vegetables, and whole grain, high fiber foods, and limit saturated & cholesterol in your diet. (4) Manage Blood Pressure. If you have high blood pressure, you should have a cuff at home so that you can check your blood pressure regularly. Be sure you have a good cuff. An arm one is generally better than a wrist one. Bring the cuff to a doctor's appointment to validate that the measurements that your cuff are taking are accurate. Take your blood pressure twice daily when you are sitting down and relaxing. Record the numbers in a log and bring this log with you to your doctors' appointments. (5) Lose Weight if your BMI is above 25. A healthy BMI is between 19-25. To calculate Your BMI, you may use a Standard BMI Calculator on the NIH BMI website: <www.nhlbi.nih.gov/guidelines/obesity/BMI/bmicalc.htm>. Weigh oneself daily. If you are overweight, set a goal to lose weight. A pound a week loss if needed is a good target. (6) Reduce Blood Sugar. Limit foods and liquids with "added sugars." (Added sugars include sucrose, fructose, glucose, maltose, dextrose, high fructose corn syrup, corn syrup, concentrated fruit juice and honey). (7) Stop Smoking. If you smoke, quitting smoking is one of the best things that you can do for your health. Smoking increases your risk of heart attack, stroke, and peripheral vascular disease, which is a build-up of plaque in your arteries. Please discard all the cigarettes and lighters in your house. Have a plan for what you will do when you have the urge to smoke. Direct and second- hand smoke shortens your life as well as the lives of your family, friends and others around you. For your health and the health of those around you, please consider quitting! Proper Bending Body Mechanics: Maintain a wide stance with one foot slightly in front of the other. Keep your back straight. Bend utilizing the strength in your hips and knees. Do not bend at the waist. Maintain the lifted object at your waist-level close to your body. Avoid lifting weight that causes immediately pain or pain anywhere in the body afterwards. Smoking/Nicotine If there was ever one thing that you could do to increase your overall health, decrease your risk of cardiovascular problems by about 39% the second you make the choice, it is to STOP SMOKING. Your body's most instant gratification is the second you stop smoking. We have all heard the studies, read the articles but it is true, smoking is extremely bad for your overall health, and moreover it is detrimental to your bone health. Nicotine, IN ANY FORM, kills bone cells, prevents your body from healing fractures, and significantly prolongs healing after surgery. In spine surgery specifically, it increases your risk of not healing your bones to create a fusion and increases your risk of having a revision surgery due to this up to 60%. I know it is hard. I know it feels impossible. But there are ways. Take control of your life. We are here to help you through it. And when you are ready, ask us and we can direct you to help if you desire. Use the START Plan to Quit Smoking (please visit the Helpguide.org website listed below for more information): S = Set a quit date. Choose a date within the next 2 weeks, so you have enough time to prepare without losing your motivation to quit. If you mainly smoke at work, quit on the weekend, so you have a few days to adjust to the change. T = Tell family, friends, and co-workers that you plan to quit. Let your friends and family in on your plan to quit smoking and tell them you need their support and encouragement to stop. Look for a quit elijah who wants to stop smoking as well. You can help each other get through the rough times. A = Anticipate and plan for the challenges you'll face while quitting. Most people who begin smoking again do so within the first 3 months. You can help yourself make it through by preparing ahead for common challenges, such as nicotine withdrawal and cigarette cravings. R = Remove cigarettes and other tobacco products from your home, car, and work. Throw away all your cigarettes (no emergency pack!), lighters, ashtrays, and matches. Wash your clothes and freshen up anything that smells like smoke. Shampoo your car, clean your drapes and carpet, and steam your furniture. T = Talk to your doctor about getting help to quit. Your doctor can prescribe medication to help with withdrawal and suggest other alternatives. If you can't see a doctor, you can get many products over the counter at your local pharmacy or grocery store, including the nicotine patch, nicotine lozenges, and nicotine gum. Resources for Quitting Smoking: <https://www.[place].gov/documents/[facility]/Quit_Tobacco_Resources_for_patients_313 480_7.pdf> Supplementation: Take recommended dosages of Vitamin D and Calcium to help fortify your bones and help them to heal. See your health maintenance packet for dosages and recommended levels. DVT/VTE prophylaxis: You will be given compression stockings from the hospital. Wear these daily for the first two weeks after surgery. You may take them off at night. You may be prescribed a medication to help thin your blood. Take this as directed. If you are not prescribed this medication, early and frequent ambulation has been shown to be the best prophylaxis to deep vein thrombosis and sequelae related to this event. Discharge Disposition: HOME WITH HOME HEALTH SERVICES
[2022-06-16 10:45] LABS: Basophils # (A) 0.04 X 10*3/uL (0.00-0.10); Basophils % (A) 0.4 %; Eosinophils # (A) 0 X 10*3/uL (0.04-0.35); Eosinophils % (A) 0 %; HCT 40.5 % (39.6-50.0); HGB 12.9 g/dL (13.0-17.0); Immature Grans, Automated 0.3 %; Lymphocytes # (A) 1.85 X 10*3/uL (0.90-5.00); Lymphocytes % (A) 19.2 %; MCH 28.8 pg (27.0-32.0); MCHC 31.9 g/dL (32.0-37.0); MCV 90.4 fL (80.0-97.0); Mean Platelet Volume 9.3 fL (9.5-12.2); Monocytes % (A) 12.5 %; NRBC Per 100 WBC 0 /100 WBCS (0.0-0.0); Neutrophils % (A) 67.6 %; Platelet Count 242 X 10*3/uL (140-440); RBC 4.48 X 10*6/uL (4.40-5.60); RDW 15.1 % (11.5-14.5); WBC 9.62 X 10*3/uL (4.50-10.00)
[2022-06-16 11:04] LABS: African American GFR (CKD) 120.2 (60.0-200.0); Albumin 4.1 g/dL (3.8-4.9); Albumin/Globulin Ratio 1.44 (1.60-3.17); Anion Gap 10.3 mmol/L (10.00-18.00); BUN/Creat Ratio 14.03 Ratio (12.00-20.00); Blood Urea Nitrogen 8.6 mg/dL (9.0-27.0); Calcium 9.1 mg/dL (8.7-10.3); Carbon Dioxide 25.9 mmol/L (20.0-27.5); Globulin 2.8 g/dL (1.6-3.3); Non-African American GFR(CKD) 103.7 (60.0-200.0); Potassium 4.2 mmol/L (3.5-5.5); Total Protein 6.9 g/dL (6.2-8.2)
--- NOTE | 2022-06-16 11:40 | P.PN ---
Subjective Progress Note Date: 06/16/22 Chapis Hoffman, is a 66-year-old male well-known to my practice who was admitted to [facility] by Dr. Rodriguez, and underwent L4-5 laminectomy and fusion. Patient was admitted to surgical floor postprocedure, medical consultation was requested for management while hospi talized. 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 On review of systems patient is complaining of back pain otherwise he denies any complaints there is no fever or chills no headache or dizziness no chest pain no shortness of breath no cough no nausea or vomiting no abdominal pain no diarrhea no blood in the stools no burning with urination no frequency or urgency and no hematuria, patient currently has Mcgrath catheter in. On 06/16/2022 patient is alert and oriented sitting up in chair. Patient lying of mild discomfort. Patient reports he has been up ambulating with PT discharge planning in place for today per surgical services. Patient denies chest pain or shortness of breath. Patient denies nausea vomiting or diarrhea. Patient denies any urinary burning Objective - Vital Signs Vital signs: Vital Signs Temp 99.3 F 06/16/22 06:53 Pulse 92 06/16/22 06:53 Resp 16 06/16/22 06:53 BP 93/54 06/16/22 06:53 Pulse Ox 98 06/16/22 06:53 FiO2 Intake & Output 06/15/22 06/16/22 06/16/22 18:59 06:59 18:59 Intake Total 1351 920 Output Total 1045 1200 400 Balance 306 -280 -400 Weight 70.9 kg Intake: IV 1351 Intake, IV Titration 200 Amount Lactated Ringers 1,000 ml 200 @ 20 mls/hr IV .Q24H [facility] Rx#:[id number] Oral 720 Output: Urine 895 1200 400 Uretheral (Mcgrath) 1200 Estimated Blood Loss 150 Other: Voiding Method Indwelling Catheter Indwelling Catheter - Exam In general patient is alert and oriented x 3 in no distress HEENT head normocephalic and atraumatic Neck is supple no JVD no goiter no lymphadenopathy no carotid bruit Chest examination is clear to auscultation no crackles no wheezing Cardiac exam reveals regular heart sounds S1 and S2 no gallops no murmurs Abdomen is soft nontender no organomegaly with normal bowel sounds Extremity exam reveals no edema no cyanosis or clubbing Neurological examination reveals no gross focal deficits - Labs CBC & Chem 7: 06/16/22 03:57 06/16/22 03:57 Labs: Abnormal Lab Results - Last 24 Hours (Table) 06/16/22 06/16/22 Range/Units 03:57 03:57 Hgb 12.9 L (13.0-17.0) g/dL MCHC 31.9 L (32.0-37.0) g/dL RDW 15.1 H (11.5-14.5) % MPV 9.3 L (9.5-12.2) fL Monocytes # 1.20 H (0.20-1.00) X 10*3/uL Eosinophils # 0 L (0.04-0.35) X 10*3/uL BUN 8.6 L (9.0-27.0) mg/dL AST 88 H (14-35) U/L ALT 81 H (10-49) U/L Alkaline Phosphatase 206 H (41-126) U/L Albumin/Globulin Ratio 1.44 L (1.60-3.17) g/dL Assessment and Plan Plan: Degenerative disc disease status post L4-5 laminectomy with fusion on 06/15/2022 Underlying history of hypertension Underlying history of hyperlipidemia Underlying history of congestive heart failure with cardiomyopathy History of cardiac arrhythmia status post pacemaker placement Previous history of hepatitis C with treatment Underlying history of benign prostatic hypertrophy Slightly elevated liver enzymes this does appear to be a chronic issue for patient will follow-up outpatient for further management Anticipate discharge today 06/16/2022
[2022-06-21] MEDS ORDERED: ERGOCALCIFEROL 1,250 MCG (50,000 IU) CAPSULE PO SCH (09:00)
== END 2022-06-16 13:07 | disposition home health service (06) ==
LOC: OR 05:45 → 4SSUR 10:38 → OR 06-16 13:07
PROVIDERS: ATTEND Orthopaedic Surgery
DX: M43.17 Spondylolisthesis, lumbosacral region (principal); M47.26 Other spondylosis with radiculopathy, lumbar region; M48.061 Spinal stenosis, lumbar region without neurogenic claudication; I25.10 Atherosclerotic heart disease of native coronary artery without angina pectoris; B18.2 Chronic viral hepatitis C; Z89.512 Acquired absence of left leg below knee; Z95.0 Presence of cardiac pacemaker; Z90.49 Acquired absence of other specified parts of digestive tract; Z98.890 Other specified postprocedural states; Z87.891 Personal history of nicotine dependence; Z79.1 Long term (current) use of non-steroidal anti-inflammatories (NSAID); Z79.891 Long term (current) use of opiate analgesic; Z79.899 Other long term (current) drug therapy; Z88.0 Allergy status to penicillin; Z88.6 Allergy status to analgesic agent
CPT/HCPCS: 86900 ×2; 86901 ×2; 85025; 85730; 86850 ×2; 72100; 72131; 22633; 22840; 22853; 63052; 20931; 20936; C1713; C1762 ×2; J1100; J0690; J2405; J1644; J1170 ×2; 80053; 94760

== ENCOUNTER → 2023-04-25 | Outpatient (CLI) | payer MEDICARE, OTHER ==
[2023-04-25 16:12] LABS: ALT 55 U/L (10-49); AST 49 U/L (14-35); Albumin 4.3 g/dL (3.8-4.9); Albumin/Globulin Ratio 1.39 Ratio (1.60-3.17); Alkaline Phosphatase 186 U/L (41-126); BUN/Creat Ratio 13.33 Ratio (12.00-20.00); Calcium 9.5 mg/dL (8.7-10.3); Chloride 103 mmol/L (96-109); Globulin 3.1 g/dL (1.6-3.3); Glucose 86 mg/dL (70-110); Potassium 4.8 mmol/L (3.5-5.5); Sodium 142 mmol/L (135-145); Total Bilirubin 0.9 mg/dL (0.3-1.2); Total Protein 7.4 g/dL (6.2-8.2)
[2023-04-25 16:18] LABS: HCT 38.8 % (39.6-50.0); HGB 12.2 g/dL (13.0-17.0); MCH 28.8 pg (27.0-32.0); MCHC 31.4 g/dL (32.0-37.0); MCV 91.5 FL (80.0-97.0); Mean Platelet Volume 9.5 FL (9.5-12.2); NRBC Per 100 WBC 0 X 10*3/uL (0.00-0.01); Platelet Count 234 X 10*3/uL (140-440); RBC 4.24 X 10*6/uL (4.40-5.60); RDW 15.1 % (11.5-14.5)
== END | disposition home or self-care (01) ==
LOC: LABWHC1 07:49
PROVIDERS: ATTEND Internal Medicine Gastroenterology
DX: K74.60 Unspecified cirrhosis of liver (principal)
CPT/HCPCS: 36415; 80053; 82105; 85027

== ENCOUNTER → 2023-07-27 | Outpatient (CLI) | payer MEDICARE ==
--- NOTE | 2023-07-27 08:39 | US ---
EXAMINATION TYPE: US liver DATE OF EXAM: 07/27/2023 COMPARISON: US 12/10/2022 CLINICAL INDICATION: Male, 68 years old with history of K74.60 UNSPECIFIED CIRRHOSIS OF LIVER; Hx cho lecystectomy, cirrhosis. TECHNIQUE: Multiple sonographic images of the right upper quadrant are obtained. FINDINGS: EXAM MEASUREMENTS: Liver Length: 12.0 cm Gallbladder Wall: Surgically absent. CBD: 1.1 cm Right Kidney: 11.4 x 5.8 x 4.0 cm RECONCILIATION COORDINATOR NOTES: *Exam is limited due to gas. Pancreas: *Anechoic area seen within tail: 1.0 x 1.0 x 0.7 cm. *Dilated duct seen within pancreas measuring 5 mm. Liver: Appears coarse and heterogeneous. *Ducts appear dilated. Gallbladder: Surgically absent. Evidence for sonographic Vela's sign: No CBD: *Dilated measuring 1.1 cm. Right Kidney: *Complex area seen lower pole: 3.0 x 3.2 x 2.8 cm. Additional subcentimeter anechoic areas seen upper and lower pole. Limited visibility of lower pole due to gas. IMPRESSION: 1. Cystic area within the pancreas as noted above with dilated pancreatic duct. Dedicated CT of the p ancreas is recommended for further evaluation. 2. Complex cystic lesion lower pole right kidney can also be further evaluated at CT.
== END | disposition home or self-care (01) ==
LOC: RADUSWWP 07:36
PROVIDERS: ATTEND Internal Medicine Gastroenterology
DX: K86.2 Cyst of pancreas (principal); K74.60 Unspecified cirrhosis of liver
CPT/HCPCS: 76705

== ENCOUNTER 2023-07-29 22:54 | Emergency (ER) | payer MEDICARE ==
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
[2023-07-29 23:17] VITALS: BP 125/88; PULSE 54; RESP 16; TEMP 98.5
[2023-07-29 23:54] LABS: ALT 27 U/L (4-49); AST 23 U/L (17-59); African American GFR (CKD) >90 (>60 ml/min/1.73 sqM); Albumin 3.9 g/dL (3.5-5.0); Alkaline Phosphatase 118 U/L (38-126); Anion Gap 6 mmol/L; Blood Urea Nitrogen 11 mg/dL (9-20); Calcium 9.1 mg/dL (8.4-10.2); Carbon Dioxide 29 mmol/L (22-30); Chloride 105 mmol/L (98-107); Creatine Kinase 113 U/L (55-170); Glucose 95 mg/dL (74-99); Non-African American GFR(CKD) >90 (>60 ml/min/1.73 sqM); Potassium 3.6 mmol/L (3.5-5.1); Sodium 140 mmol/L (137-145); Total Bilirubin 0.5 mg/dL (0.2-1.3); Total Protein 6.9 g/dL (6.3-8.2)
--- NOTE | 2023-07-29 23:55 | CT ---
EXAM: CT Head Without Intravenous Contrast CLINICAL HISTORY: ITS.REASON CT Reason: mental status changes A Ox1 for 1 mo TECHNIQUE: Axial computed tomography images of the head/brain without intravenous contrast. CTDI is 49.2 mGy and DLP is 1095.4 mGy-cm. This CT exam was performed using one or more of the following dose reduction techniques: automated exposure control, adjustment of the mA and/or kV according to patient size, and/or use of iterative reconstruction technique. COMPARISON: No relevant prior studies available. FINDINGS: Brain: Localized mass-effect with midline shift to the RIGHT, measuring 9 mm. Mass in the LEFT temporal lobe measures 3.1 x 3.0 cm with severe surrounding vasogenic edema. These findings are new when compared to April 27, 2022. Brain MRI with contrast recommended. No hemorrhage. No significant white matter disease. Ventricles: Unremarkable. No ventriculomegaly. Bones/joints: Unremarkable. No acute fracture. Soft tissues: Unremarkable. Sinuses: Unremarkable as visualized. No acute sinusitis. Mastoid air cells: Unremarkable as visualized. No mastoid effusion. IMPRESSION: Mass in the LEFT temporal lobe measures 3.1 x 3.0 cm with severe surrounding vasogenic edema. These findings are new when compared to April 27, 2022. Brain MRI with contrast recommended. Differential favors metastatic lesion. Localized mass-effect with midline shift to the RIGHT, measuring 9 mm.
--- NOTE | 2023-07-29 23:56 | XR ---
EXAM: XR Chest, 1 View CLINICAL HISTORY: ITS.REASON XR Reason: altered mental status TECHNIQUE: Frontal view of the chest. COMPARISON: No relevant prior studies available. FINDINGS: Lungs: LEFT hilar fullness measuring approximately 2.2 x 3.0 cm. Given the presence of a brain mass, chest CT is recommended. No consolidation. Pleural space: Unremarkable. No pneumothorax. Heart: Cardiomegaly. Mediastinum: Unremarkable. Normal mediastinal contour. Bones/joints: Unremarkable. No acute fracture. Tubes, lines and devices: Pacemaker leads. IMPRESSION: LEFT hilar fullness measuring approximately 2.2 x 3.0 cm. Given the presence of a brain mass, chest CT is recommended.
[2023-07-29 23:58] LABS: INR 1.1 (<1.2); Partial Thromboplastin Time 24.8 sec (22.0-30.0); Prothrombin Time 11.5 sec (10.0-12.5)
[2023-07-30] LABS: Basophils # (A) 0.1 k/uL (0-0.2); Basophils % (A) 1 %; Eosinophils # (A) 0.1 k/uL (0-0.7); Eosinophils % (A) 3 %; HCT 36.6 % (39.0-53.0); HGB 12.4 gm/dL (13.0-17.5); Lymphocytes # (A) 1.9 k/uL (1.0-4.8); Lymphocytes % (A) 37 %; MCHC 33.8 g/dL (31.0-37.0); MCV 94.6 fL (80.0-100.0); Mean Platelet Volume 7.9; Monocytes # (A) 0.3 k/uL (0-1.0); Monocytes % (A) 7 %; Neutrophils # (A) 2.6 k/uL (1.3-7.7); Neutrophils % (A) 50 %; Platelet Count 226 k/uL (150-450); RBC 3.86 m/uL (4.30-5.90); RDW 14.3 % (11.5-15.5); WBC 5.2 k/uL (3.8-10.6)
[2023-07-30] MEDS: DEXAMETHASONE SOD PHOSPHATE 10 MG/ML 1 ML VIAL IVP STA (00:01)
--- NOTE | 2023-07-30 01:01 | CT ---
EXAM: CT Chest Without Intravenous Contrast CLINICAL HISTORY: ITS.REASON CT Reason: cxr concerning for mass TECHNIQUE: Axial computed tomography images of the chest without intravenous contrast. CTDI is 2.95 mGy and DLP is 219.85 mGy-cm. This CT exam was performed using one or more of the following dose reduction techniques: automated exposure control, adjustment of the mA and/or kV according to patient size, and/or use of iterative reconstruction technique. COMPARISON: No relevant prior studies available. FINDINGS: Lungs: A mass in the LEFT lower lobe measures 3.4 x 3.5 cm. Nodule in the RIGHT upper lobe measures 8 mm. Lung cancer is suspected. Evaluation limited without contrast. No consolidation. Pleural space: Unremarkable. No pneumothorax. No significant effusion. Heart: Unremarkable. No cardiomegaly. No significant pericardial effusion. No significant coronary artery calcifications. Bones/joints: Unremarkable. No acute fracture. No dislocation. Soft tissues: Unremarkable. Vasculature: Unremarkable. No thoracic aortic aneurysm. Lymph nodes: Unremarkable. No enlarged lymph nodes. Tubes, lines and devices: Pacemaker leads. IMPRESSION: A mass in the LEFT lower lobe measures 3.4 x 3.5 cm. Nodule in the RIGHT upper lobe measures 8 mm. Lung cancer is suspected. Evaluation limited without contrast. EXAM: CT Abdomen and Pelvis Without Intravenous Contrast CLINICAL HISTORY: ITS.REASON CT Reason: cxr concerning for mass TECHNIQUE: Axial computed tomography images of the abdomen and pelvis without intravenous contrast. CTDI is 2.95 mGy and DLP is 219.85 mGy-cm. This CT exam was performed using one or more of the following dose reduction techniques: automated exposure control, adjustment of the mA and/or kV according to patient size, and/or use of iterative reconstruction technique. COMPARISON: No relevant prior studies available. FINDINGS: Lung bases: Unremarkable. No mass. No consolidation. ABDOMEN: Liver: Unremarkable. Gallbladder and bile ducts: Cholecystectomy. No ductal dilation. Pancreas: Unremarkable. No ductal dilation. Spleen: Unremarkable. No splenomegaly. Adrenals: Unremarkable. No mass. Kidneys and ureters: Unremarkable. No obstructing stones. No hydronephrosis. Stomach and bowel: Moderate fecal retention, correlate for constipation. No small bowel obstruction. No mucosal thickening. PELVIS: Appendix: No findings to suggest acute appendicitis. Bladder: Unremarkable. No stones. Reproductive: Unremarkable as visualized. ABDOMEN and PELVIS: Intraperitoneal space: Unremarkable. No free air. No significant fluid collection. Bones/joints: Posterior fusion at L4-L5. No acute fracture. No dislocation. Soft tissues: Unremarkable. Vasculature: Unremarkable. No abdominal aortic aneurysm. Lymph nodes: Unremarkable. No enlarged lymph nodes. IMPRESSION: 1. Cholecystectomy. 2. Moderate fecal retention, correlate for constipation. No small bowel obstruction.
== END 2023-07-30 01:48 | disposition other institution (70) ==
LOC: EC 22:54
DX: D49.6 Neoplasm of unspecified behavior of brain (principal); G93.6 Cerebral edema; C34.11 Malignant neoplasm of upper lobe, right bronchus or lung; C34.32 Malignant neoplasm of lower lobe, left bronchus or lung; I25.10 Atherosclerotic heart disease of native coronary artery without angina pectoris; F17.200 Nicotine dependence, unspecified, uncomplicated; Z88.0 Allergy status to penicillin; Z88.6 Allergy status to analgesic agent; Z90.49 Acquired absence of other specified parts of digestive tract; Z95.0 Presence of cardiac pacemaker
CPT/HCPCS: 36415; 93005; 80053; 82140; 82550; 84484; 85025; 85610; 85730; 71045; 70450; 71250; 74176; 99285; 96374; J1100

== ENCOUNTER 2023-08-12 12:57 | Emergency (ER) | payer MEDICARE ==
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
[2023-08-12 14:38] LABS: HCT 35.4 % (39.0-53.0); HGB 11.2 gm/dL (13.0-17.5); MCH 29.9 pg (25.0-35.0); MCHC 31.5 g/dL (31.0-37.0); MCV 94.9 fL (80.0-100.0); Mean Platelet Volume 7.3; Platelet Count 256 k/uL (150-450); RBC 3.73 m/uL (4.30-5.90); RDW 14.6 % (11.5-15.5); WBC 25.2 k/uL (3.8-10.6)
--- NOTE | 2023-08-12 14:48 | XR ---
EXAMINATION TYPE: XR chest 2V DATE OF EXAM: 08/12/2023 2:38 PM CLINICAL INDICATION:Male, 68 years old with history of dyspnea; COMPARISON: Chest radiographs from 07/29/2023. TECHNIQUE: XR chest 2V Frontal and lateral views of the chest. FINDINGS: Lungs/Pleura: There is no evidence of pleural effusion, focal consolidation, or pneumothorax. Pulmonary vascularity: Unremarkable. Heart/mediastinum: Cardiomediastinal silhouette is unremarkable. Two lead cardiac conduction device o verlying the left hemithorax with lead tips projecting over the right ventricle and right atrium. Musculoskeletal: No acute osseous pathology. IMPRESSION: No acute cardiopulmonary disease/process.
[2023-08-12 14:50] LABS: ALT 98 U/L (4-49); AST 43 U/L (17-59); African American GFR (CKD) >90 (>60 ml/min/1.73 sqM); Albumin 3.4 g/dL (3.5-5.0); Alkaline Phosphatase 88 U/L (38-126); Anion Gap 2 mmol/L; Blood Urea Nitrogen 19 mg/dL (9-20); Calcium 9.1 mg/dL (8.4-10.2); Carbon Dioxide 31 mmol/L (22-30); Chloride 99 mmol/L (98-107); Glucose 110 mg/dL (74-99); Non-African American GFR(CKD) >90 (>60 ml/min/1.73 sqM); Potassium 4.8 mmol/L (3.5-5.1); Sodium 132 mmol/L (137-145); Total Bilirubin 0.6 mg/dL (0.2-1.3); Total Protein 6.1 g/dL (6.3-8.2)
[2023-08-12 14:50] LABS: Appearance,Urine Clear (Clear); Bilirubin,Urine Negative (Negative); Blood,Urine Negative (Negative); Color,Urine Colorless; Glucose,Urine (UA) Negative (Negative); Ketones,Urine Negative (Negative); Leukocyte Esterase,Urine Negative (Negative); Nitrite,Urine Negative (Negative); Protein,Urine Negative (Negative); Urobilinogen,Urine <2.0 mg/dL (<2.0)
[2023-08-12 14:54] VITALS: RESP 18; TEMP 98.5
[2023-08-12 14:58] LABS: NT-Pro-B-Type Natriuretic Pept 83 pg/mL
[2023-08-12 14:59] LABS: INR 0.9 (<1.2); Prothrombin Time 10.4 sec (10.0-12.5)
--- NOTE | 2023-08-12 14:59 | CT ---
EXAMINATION TYPE: CT brain wo con DATE OF EXAM: 08/12/2023 COMPARISON: 07/29/2023 HISTORY: AMS. Recent surgery to remove mass on brain. CT DLP: 1109.4 mGycm Automated exposure control for dose reduction was used. FINDINGS: There is vasogenic edema involving the left cerebral hemisphere with mild mass effect from the adjace nt edema which may be slightly improved from prior exam. Midline shift is slightly improved from prio r exam. There is mixed air and isodense and hyperdense material within the left temporal lobe with evidence o f adjacent craniotomy and soft tissue edema and surgical zoila. This may be postoperative or repres ent postoperative air although infectious etiology not excluded. Small amount of acute hemorrhage or noted. Sella turcica is maintained. Craniocervical junction maintained. Orbits are symmetric. IMPRESSION: 1. Postoperative change. Within the surgical bed there is a small amount of acute hemorrhage and resi dual intermediate density. A large amount of air is seen in the surgical bed which may be postoperati ve. Infectious etiology not excluded. 2. Persistent significant vasogenic edema which is slightly improved relative to the prior exam. Degr ee of midline shift also has slightly improved.
[2023-08-12 15:01] LABS: Amphetamine Screen,Urine Not Detected (NotDetected); Barbiturate Screen,Urine Not Detected (NotDetected); Benzodiazepines Screen,Urine Not Detected (NotDetected); Cocaine Screen,Urine Not Detected (NotDetected); Methadone Screen, Urine Not Detected (NotDetected); Opiate Screen,Urine Detected (NotDetected); Oxycodone Screen, Urine Not Detected (NotDetected); Phencyclidine Screen,Urine Not Detected (NotDetected); Tricyclic Antidepressant,Urine Not Detected (NotDetected); Urn Cannabinoid Scrn Not Detected (NotDetected)
[2023-08-12 15:03] LABS: Lactic Acid, Venous 1.4 mmol/L (0.7-2.0)
[2023-08-12 15:06] LABS: Partial Thromboplastin Time 19.9 sec (22.0-30.0)
--- NOTE | 2023-08-12 15:07 | US ---
EXAMINATION TYPE: US venous doppler duplex LE RT DATE OF EXAM: 08/12/2023 2:07 PM COMPARISON: NONE CLINICAL INDICATION: Male, 68 years old with history of swelling and pain; SIDE PERFORMED: Left TECHNIQUE: The lower extremity deep venous system is examined utilizing real time linear array sonog emir with graded compression, doppler sonography and color-flow sonography. VESSELS IMAGED: Common Femoral Vein Deep Femoral Vein Greater Saphenous Vein * Femoral Vein Popliteal Vein Small Saphenous Vein * Proximal Calf Veins (* superficial vessels) Left Leg: Negative for DVT IMPRESSION: Grayscale, color doppler, spectral doppler imaging performed of the deep veins of the lo wer extremities. There is normal flow, compressibility, vascular waveforms.
[2023-08-12] MEDS ORDERED: VANCOMYCIN IV PER PHARMACY 1 EACH MISC MISCELLANE PRN (15:25)
[2023-08-12] MEDS: LORazepam 2 MG/ML INJ IV STA ×2 (15:56→16:36)
[2023-08-12] MEDS: VANCOMYCIN 1,250 MG in SODIUM CHLORIDE 0.9% 250 ML IVPB ONE (16:17)
[2023-08-12 17:14] VITALS: BP 144/82; PULSE 64
[2023-08-13] MEDS ORDERED: VANCOMYCIN 1,250 MG in SODIUM CHLORIDE 0.9% 250 ML IVPB SCH (05:00)
== END 2023-08-12 16:49 | disposition other institution (70) ==
LOC: EC 12:57
DX: G93.6 Cerebral edema (principal); D72.829 Elevated white blood cell count, unspecified; C71.9 Malignant neoplasm of brain, unspecified; R41.82 Altered mental status, unspecified; R00.1 Bradycardia, unspecified; F17.200 Nicotine dependence, unspecified, uncomplicated; Z88.0 Allergy status to penicillin; Z88.6 Allergy status to analgesic agent
CPT/HCPCS: 36415; 93005; 83880; 80053; 82140; 83605; 84484; 85027; 85610; 85730; 81003; 80306; 71046; 93971; 70450; 99285; 96365; 96367; 96375; 96376; J3370; J2060; J0696

== ENCOUNTER 2023-08-21 15:50 | Emergency (ER) | payer MEDICARE ==
[2023-08-21 16:01] VITALS: PULSE 61; RESP 20; TEMP 99
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
[2023-08-21] MEDS: MORPHINE SULFATE 4 MG/ML SYRINGE IVP STA (18:05)
[2023-08-21 18:08] LABS: Basophils % (A) 0 %; Eosinophils # (A) 0.2 k/uL (0-0.7); Eosinophils % (A) 2 %; HCT 40.9 % (39.0-53.0); HGB 13.1 gm/dL (13.0-17.5); Lymphocytes # (A) 0.6 k/uL (1.0-4.8); Lymphocytes % (A) 4 %; MCH 30.3 pg (25.0-35.0); MCHC 31.9 g/dL (31.0-37.0); MCV 95.1 fL (80.0-100.0); Mean Platelet Volume 7.4; Monocytes # (A) 0.8 k/uL (0-1.0); Monocytes % (A) 6 %; Neutrophils # (A) 12.1 k/uL (1.3-7.7); Neutrophils % (A) 88 %; Platelet Count 155 k/uL (150-450); RDW 15.9 % (11.5-15.5); WBC 13.8 k/uL (3.8-10.6)
--- NOTE | 2023-08-21 18:27 | XR ---
EXAMINATION TYPE: XR chest 2V DATE OF EXAM: 08/21/2023 5:05 PM CLINICAL INDICATION:Male, 68 years old with history of leg swelling; [facility] COMPARISON: 08/08/2023 TECHNIQUE: XR chest 2V. Frontal and lateral views of the chest.. FINDINGS: Lines/Tubes/Devices: Left chest 3-lead pace making device, unchanged with lead tips over the RA, RV, coronary sinus. Monit or leads over the chest. Heart/mediastinum: Heart size is normal. A few aortic calcifications. Pulmonary vascularity: Again the hilar shadows are somewhat prominent which may be related to the pul monary arteries, and can be seen with pulmonary hypertension. There may be mild superimposed venous c ongestion. Lungs/Pleura: Lungs appear somewhat hyperinflated with flattening of the diaphragm and coarsening of interstitial markings, COPD is a consideration. Query slightly increased interstitial markings versus prior, likely related to chronic changes with possible mild superimposed edema. Hazy opacity in the right perihilar region extending to the lower lung zone, could reflect edema and atelectasis, or coul d be artifactual from summation of shadows. No focal consolidation, sizable effusion, or pneumothorax is demonstrated. Musculoskeletal: No acute osseous abnormality demonstrated in the limits of the exam. Moderate degen erative changes of the spine. Other findings: None. IMPRESSION: 1. Lung findings can be seen with COPD. 2. Possible mild superimposed congestive changes.
[2023-08-21 18:38] LABS: Partial Thromboplastin Time 20.3 sec (22.0-30.0)
[2023-08-21 18:46] LABS: ALT 66 U/L (4-49); AST 27 U/L (17-59); Acetaminophen <10.0 ug/mL; African American GFR (CKD) >90 (>60 ml/min/1.73 sqM); Albumin 3.1 g/dL (3.5-5.0); Alkaline Phosphatase 72 U/L (38-126); Anion Gap -1 mmol/L; Blood Urea Nitrogen 18 mg/dL (9-20); Calcium 8.3 mg/dL (8.4-10.2); Carbon Dioxide 33 mmol/L (22-30); Chloride 102 mmol/L (98-107); Glucose 109 mg/dL (74-99); Magnesium 2.3 mg/dL (1.6-2.3); Non-African American GFR(CKD) >90 (>60 ml/min/1.73 sqM); Potassium 4.5 mmol/L (3.5-5.1); Sodium 134 mmol/L (137-145); Total Bilirubin 0.9 mg/dL (0.2-1.3); Total Protein 5.7 g/dL (6.3-8.2)
[2023-08-21 18:55] LABS: NT-Pro-B-Type Natriuretic Pept 285 pg/mL
--- NOTE | 2023-08-21 19:08 | XR ---
EXAMINATION TYPE: XR thoracic spine 2V DATE OF EXAM: 08/21/2023 5:05 PM CLINICAL INDICATION:Male, 68 years old with history of mid thoracic back pain; H COMPARISON: CT 07/30/2023 TECHNIQUE AND FINDINGS: 3 views thoracic spine, 3 views lumbar spine Mild multilevel degenerative disc changes with small predominantly anterior disc marginal osteophytes . No acute compression fracture is suggested. No appreciable malalignment. Pedicles are visible at ea ch level. There are 5 nonrib-bearing lumbar-type vertebral bodies. Mild degenerative changes of the upper lumba r spine without evidence of acute compression fracture. Posterior fusion hardware including bilateral pedicle screws and posterior fixation rods L4-L5 with metallic cage disc spacer, hardware appears in tact. Similar appearance of hardware on the frontal view compared to the prior study, with the hardwa re skewed towards the right which appears to be chronic related to the patient's degenerative anatomy and mild chronic shifting of L4 towards the left on L5. There are mild degenerative changes of the S I joints. Multiple surgical clips in the right upper abdomen. Partially seen pacemaker device. Unrema rkable bowel gas pattern. IMPRESSION: 1. No radiographic evidence of an acute osseous abnormality in the thoracic or lumbar spine. 2. Chronic degenerative and postoperative changes, as described above.
--- NOTE | 2023-08-21 19:08 | XR ---
EXAMINATION TYPE: XR lumbar spine 2 or 3V DATE OF EXAM: 08/21/2023 5:05 PM CLINICAL INDICATION:Male, 68 years old with history of back pain; H COMPARISON: CT 07/30/2023 TECHNIQUE AND FINDINGS: 3 views thoracic spine, 3 views lumbar spine Mild multilevel degenerative disc changes with small predominantly anterior disc marginal osteophytes . No acute compression fracture is suggested. No appreciable malalignment. Pedicles are visible at ea ch level. There are 5 nonrib-bearing lumbar-type vertebral bodies. Mild degenerative changes of the upper lumba r spine without evidence of acute compression fracture. Posterior fusion hardware including bilateral pedicle screws and posterior fixation rods L4-L5 with metallic cage disc spacer, hardware appears in tact. Similar appearance of hardware on the frontal view compared to the prior study, with the hardwa re skewed towards the right which appears to be chronic related to the patient's degenerative anatomy and mild chronic shifting of L4 towards the left on L5. There are mild degenerative changes of the S I joints. Multiple surgical clips in the right upper abdomen. Partially seen pacemaker device. Unrema rkable bowel gas pattern. IMPRESSION: 1. No radiographic evidence of an acute osseous abnormality in the thoracic or lumbar spine. 2. Chronic degenerative and postoperative changes, as described above.
--- NOTE | 2023-08-21 19:31 | US ---
EXAMINATION TYPE: US venous doppler duplex LE DATE OF EXAM: 08/21/2023 5:58 PM COMPARISON: NONE CLINICAL INDICATION: Male, 68 years old with history of pain; pain and edema patient has prosthetic l eft leg from knee down. SIDE PERFORMED: Bilateral TECHNIQUE: The lower extremity deep venous system is examined utilizing real time linear array sonog emir with graded compression, doppler sonography and color-flow sonography. VESSELS IMAGED: Common Femoral Vein Deep Femoral Vein Greater Saphenous Vein * Femoral Vein Popliteal Vein Small Saphenous Vein * Proximal Calf Veins (* superficial vessels) Right Leg: Negative for DVT Left Leg: Negative for DVT Popliteal Vein not visualized due to prosthetic. IMPRESSION: 1. Visualized bilateral lower extremity ultrasound negative for deep venous thrombosis.
[2023-08-21 21:08] VITALS: BP 131/83
== END 2023-08-21 20:59 | disposition home or self-care (01) ==
LOC: EC 15:50 → SUPCPDRO 15:50 → EC 20:59
DX: M51.36 Other intervertebral disc degeneration, lumbar region (principal); M79.89 Other specified soft tissue disorders; I45.10 Unspecified right bundle-branch block; F17.200 Nicotine dependence, unspecified, uncomplicated; Z88.0 Allergy status to penicillin; Z88.6 Allergy status to analgesic agent
CPT/HCPCS: 93005; 83880; 80053; 83735; 84484; 85025; 85610; 85730; 80143; 72070; 72100; 71046; 93970; 99284; 96374; J2270; 36415

== ENCOUNTER 2023-09-01 20:21 | Emergency (ER) | payer MEDICARE ==
[2023-09-01 20:37] VITALS: RESP 18
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
[2023-09-01 21:43] LABS: Anisocytosis Slight; Basophils % (A) 0 %; Eosinophils # (A) 0.1 k/uL (0-0.7); Eosinophils % (A) 1 %; HGB 12.4 gm/dL (13.0-17.5); Lymphocytes # (A) 1.1 k/uL (1.0-4.8); Lymphocytes % (A) 13 %; MCH 30.7 pg (25.0-35.0); MCHC 31.8 g/dL (31.0-37.0); Macrocytosis Slight; Mean Platelet Volume 7.8; Monocytes # (A) 0.5 k/uL (0-1.0); Monocytes % (A) 5 %; Neutrophils # (A) 6.5 k/uL (1.3-7.7); Neutrophils % (A) 79 %; Platelet Count 108 k/uL (150-450); RBC 4.04 m/uL (4.30-5.90); RDW 16.2 % (11.5-15.5); WBC 8.3 k/uL (3.8-10.6)
[2023-09-01 21:54] LABS: ALT 87 U/L (4-49); AST 42 U/L (17-59); African American GFR (CKD) >90 (>60 ml/min/1.73 sqM); Albumin 3.2 g/dL (3.5-5.0); Alkaline Phosphatase 85 U/L (38-126); Anion Gap 0 mmol/L; Blood Urea Nitrogen 21 mg/dL (9-20); Calcium 9.3 mg/dL (8.4-10.2); Carbon Dioxide 32 mmol/L (22-30); Chloride 103 mmol/L (98-107); Glucose 215 mg/dL (74-99); Non-African American GFR(CKD) >90 (>60 ml/min/1.73 sqM); Potassium 4.3 mmol/L (3.5-5.1); Sodium 135 mmol/L (137-145); Total Bilirubin 0.6 mg/dL (0.2-1.3); Total Protein 5.7 g/dL (6.3-8.2)
[2023-09-01 22:09] LABS: INR 0.9 (<1.2); Prothrombin Time 10.4 sec (10.0-12.5)
[2023-09-01 22:23] LABS: MCV 96.4 fL (80.0-100.0)
[2023-09-01 22:31] LABS: Partial Thromboplastin Time 20.2 sec (22.0-30.0)
--- NOTE | 2023-09-01 23:02 | CT ---
EXAM: CT Head Without Intravenous Contrast CLINICAL HISTORY: ITS.REASON CT Reason: Altered mental status TECHNIQUE: Axial computed tomography images of the head/brain without intravenous contrast. CTDI is 49.2 mGy and DLP is 1183.4 mGy-cm. This CT exam was performed using one or more of the following dose reduction techniques: automated exposure control, adjustment of the mA and/or kV according to patient size, and/or use of iterative reconstruction technique. COMPARISON: Comparison made to prior head CT from August 12, 2023. FINDINGS: Brain: There is a remote resection cavity of the left temporal lobe. No hemorrhage. No significant white matter disease. Ventricles: Unremarkable. No ventriculomegaly. Bones/joints: Status post left pterional craniotomy. No acute fracture. Soft tissues: Unremarkable. Sinuses: Unremarkable as visualized. No acute sinusitis. Mastoid air cells: Unremarkable as visualized. No mastoid effusion. IMPRESSION: No evidence of acute intracranial pathology.
[2023-09-01 23:42] LABS: Amorphous Sediment,Urine Few /hpf; Appearance,Urine Cloudy (Clear); Bilirubin,Urine Negative (Negative); Blood,Urine Negative (Negative); Color,Urine Colorless; Glucose,Urine (UA) Negative (Negative); Hyaline Casts,Urine 2 /lpf (0-2); Ketones,Urine Negative (Negative); Leukocyte Esterase,Urine Negative (Negative); Nitrite,Urine Negative (Negative); Protein,Urine Negative (Negative); RBC,Urine <1 /hpf (0-5); Specific Gravity,Urine 1.017 (1.001-1.035); Urobilinogen,Urine <2.0 mg/dL (<2.0); WBC,Urine 1 /hpf (0-5)
[2023-09-02 01:22] VITALS: BP 128/62; PULSE 88; TEMP 97.9
== END 2023-09-02 01:20 | disposition home or self-care (01) ==
LOC: EC 20:21
DX: R41.82 Altered mental status, unspecified (principal); F17.200 Nicotine dependence, unspecified, uncomplicated; Z88.0 Allergy status to penicillin; Z88.6 Allergy status to analgesic agent; Z90.49 Acquired absence of other specified parts of digestive tract; Z95.0 Presence of cardiac pacemaker
CPT/HCPCS: 36415; 70450; 80053; 81001; 85025; 85610; 85730; 93005; 99285

== ENCOUNTER → 2023-09-15 | Outpatient (CLI) | payer MEDICARE ==
--- NOTE | 2023-09-16 16:30 | PE ---
EXAMINATION TYPE: PET CT fusion skull to thigh DATE OF EXAM: 09/15/2023 COMPARISON: CT chest abdomen pelvis 07/30/2023 Prior PET/CT: None at this location HISTORY: Secondary malignant neoplasm of the brain, solitary pulmonary nodule TECHNIQUE: Following the intravenous administration of 10.78 mCi of F-18 FDG, whole body images are performed from the skull base to the midthigh. Images are reviewed on the computer in the coronal, a xial, and sagittal planes. Reconstructed rotating images are created on independent workstation and reviewed on the computer. A localization and attenuation correction CT is performed in conjunction with the PET scan. DLP: 228.24 mGycm SCAN: Initial Blood glucose: 83 mg/dL Average Mediastinum SUV: 1.25 Average Liver SUV: 1.6 FINDINGS: Brain: No suspicious uptake. Photopenic defect in the left temporal region from prior resection. Brai n is limited as small recurrences may not be differentiated from normal high activity background. Ple ase see prior MRIs. NECK: No suspicious uptake THORAX: There is a focus of radiotracer along the lateral aspect right upper lobe. Image 106, SUV 2.1 6. There is a focus radiotracer at the aortopulmonic window suspicious for metastatic lymph node. Image 1:15, SUV 5.01. There is a right hilar area of uptake adjacent to the aorta, image 128, SUV 9.06 There is uptake within the lingula, image 148, SUV 2.71. Some right middle lobe uptake is present adj acent to the mediastinal border, image 148, SUV 3.6. ABDOMEN: No abnormal uptake PELVIS: No abnormal uptake OSSEOUS STRUCTURES: No abnormal uptake Other: There is paraspinal uptake. This can be related to muscular activity. Increased uptake is also present within the gluteal region. LOCALIZATION CT: Small densities within the lungs corresponding to areas of uptake. COMPARISON: None IMPRESSION: 1. Uptake within the mediastinum and bilateral lung perez suspicious for metastatic disease. A prima ry lung cancer with metastasis would be within the differential.
== END | disposition home or self-care (01) ==
LOC: RADPETMAIN 07:45
PROVIDERS: ATTEND Internal Medicine
DX: R91.8 Other nonspecific abnormal finding of lung field (principal)
CPT/HCPCS: 78815; A9552

== ENCOUNTER 2023-09-28 09:17 | Emergency (ER) | payer MEDICARE ==
[2023-09-28 09:52] VITALS: RESP 18
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
[2023-09-28] MEDS: MORPHINE SULFATE 4 MG/ML SYRINGE IM PRN (10:17)
--- NOTE | 2023-09-28 12:38 | CT ---
EXAMINATION TYPE: CT lumbar spine wo con CT DLP: 649.8 mGycm, Automated exposure control for dose reduction was used. DATE OF EXAM: 09/28/2023 11:29 AM COMPARISON: 06/15/[address] exam. CLINICAL INDICATION:Male, 68 years old with history of back pain; PHH, Back pain for > 15 years TECHNIQUE: Multiple axial images were obtained from the midportion of T11 through the sacroiliac darlene nts. Soft tissue and bone windows in coronal and sagittal planes were obtained and reviewed. 3-D ref ormats of the bones were created on a separate workstation and submitted for review. Contrast used: mL of , (None, if empty). Oral contrast used: (None, if empty). FINDINGS: Bipolar cardiac leads are seen projecting over the heart. Cholecystectomy clips in place. Aneurysmal dilatation of the distal thoracic aorta at 3.6 cm. Previous hardware fusion of the lumbar spine is performed with vertical stabilization bars and pedicl e screws at L4-L5. Intervertebral disc prosthetic devices at L4-L5. Bone: Discs: L1-L2: Normal disc space height. No disc herniation protrusion or central stenosis. No facet joint ar thropathy. No evidence for foraminal encroachment. L2-L3: Normal disc space height. Mild left paracentral disc bulge without herniation. No evidence for central stenosis or left lateral recess stenosis. Neural foramen is patent. No facet joint arthropat hy. No evidence for foraminal encroachment. L3-L4: Normal disc space height. No disc herniation protrusion or central stenosis. No facet joint ar thropathy. No evidence for foraminal encroachment. L4-L5: Postoperative changes of decompressive left-sided hemilaminectomy. Pedicular screws are in tyrese ce. Resultant streak artifact limits evaluation. Intervertebral body spacer is identified. Left later al epidural 10 x 4 mm bony fragment is seen posterior to the superior endplate of L5. This is seen be st on image 57 of 86 series 201. There is 2 mm grade 1 anterolisthesis L4 and L5 unchanged from prior study. L5-S1: Grade 1 retrolisthesis L5 on S1 at 4.3 mm is unchanged. Posterior fusion defect noted at this level. Mild degenerative disc space narrowing with posterior disc bulge. No evidence for disc herniation or central stenosis. Foramina are patent bilaterally. Postsurgical soft tissue changes se en. Soft tissue air and fluid identified. IMPRESSION: 1 postoperative changes of decompressive left-sided hemilaminectomy at L4-5. There is grade 1 anterol isthesis unchanged from prior study. 10 x 4 mm bony fragment as noted above. 2. Grade 1 retrolisthesis L5 on S1 unchanged with associated degenerative disc disease.
[2023-09-28 12:54] VITALS: BP 126/84; PULSE 90; TEMP 98.6
== END 2023-09-28 12:14 | disposition left against medical advice (07) ==
LOC: EC 09:17
DX: M43.17 Spondylolisthesis, lumbosacral region (principal); F17.200 Nicotine dependence, unspecified, uncomplicated; Z88.0 Allergy status to penicillin; Z88.6 Allergy status to analgesic agent; Z53.29 Procedure and treatment not carried out because of patient's decision for other reasons
CPT/HCPCS: 72131; 99284; 96372; J2270

== ENCOUNTER → 2023-12-16 | Outpatient (CLI) | payer MEDICARE ==
--- NOTE | 2023-12-17 17:36 | CT ---
EXAMINATION TYPE: CT lumbar spine wo con CT DLP: 359.9 mGycm, Automated exposure control for dose reduction was used. DATE OF EXAM: 12/17/2023 7:31 AM COMPARISON: 09/28/2023. CLINICAL INDICATION:Male, 68 years old with history of M54.50 Low back pain; PHH, low back pain TECHNIQUE: Multiple axial images were obtained from the midportion of T11 through the sacroiliac darlene nts. Soft tissue and bone windows in coronal and sagittal planes were obtained and reviewed. 3-D ref ormats of the bones were created on a separate workstation and submitted for review. Contrast used: mL of , (None, if empty). Oral contrast used: (None, if empty). FINDINGS: Bipolar cardiac leads are seen projecting over the heart. Cholecystectomy clips in place. Aneurysmal dilatation of the distal thoracic aorta at 3.6 cm. Previous hardware fusion of the lumbar spine is performed with vertical stabilization bars and pedicle screws at L4-L5. Intervertebral disc prosthetic devices at L4-L5. Hardware is intact and well-positioned. Wide L5 laminectomy appears intact Bone: Discs: L1-L2: Normal disc space height. No disc herniation protrusion or central stenosis. No facet joint arthropathy. No evidence for foraminal encroachment. L2-L3: Normal disc space height. Mild left paracentral disc bulge without herniation. No evidence for central stenosis or left lateral recess stenosis. Neural foramen is patent. No facet joint arthropathy. No evidence for foraminal encroachment. L3-L4: Normal disc space height. No disc herniation protrusion or central stenosis. No facet joint arthropathy. No evidence for foraminal encroachment. L4-L5: Postoperative changes of decompressive left-sided hemilaminectomy. Pedicular screws are in place. Resultant streak artifact limits evaluation. Intervertebral body spacer is identified. Left lateral epidural 10 x 4 mm bony fragment is seen posterior to the superior endplate of L5. This is seen best on image 57 of 86 series 201. There is 2 mm grade 1 anterolisthesis L4 and L5 unchanged from prior study. L5-S1: Grade 1 retrolisthesis L5 on S1 at 4.3 mm is unchanged. Posterior fusion defect noted at this level. Mild degenerative disc space narrowing with posterior disc bulge. No evidence for disc herniation or central stenosis. Foramina are patent bilaterally. Postsurgical soft tissue changes seen. Soft tissue air and fluid identified. IMPRESSION: 1 postoperative changes of decompressive left-sided hemilaminectomy at L4-5. There is grade 1 anterolisthesis unchanged from prior study. 10 x 4 mm bony fragment as noted above. 2. Grade 1 retrolisthesis L5 on S1 unchanged with associated degenerative disc disease. 3. Aneurysm of distal thoracic aorta measuring 3.6 cm
== END | disposition home or self-care (01) ==
LOC: RADCTMAIN 16:47
PROVIDERS: ATTEND Orthopaedic Surgery
DX: M43.17 Spondylolisthesis, lumbosacral region (principal); I71.20 Thoracic aortic aneurysm, without rupture, unspecified
CPT/HCPCS: 72131

== ENCOUNTER → 2024-01-27 | Outpatient (CLI) | payer MEDICARE ==
[2024-01-27 10:47] LABS: African American GFR (CKD) >90 (>60 ml/min/1.73 sqM); Blood Urea Nitrogen 5 mg/dL (9-20); Non-African American GFR(CKD) >90 (>60 ml/min/1.73 sqM)
--- NOTE | 2024-01-27 11:33 | CT ---
EXAMINATION TYPE: CT brain w con DATE OF EXAM: 01/27/2024 COMPARISON: 09/01/2023 HISTORY: BRAIN METS CT DLP: 1183 mGycm Automated exposure control for dose reduction was used. CONTRAST: CT scan of the head is performed with IV Contrast, patient injected with 100 mL of Isovue 300. FINDINGS: There are postsurgical changes of the left temporal bone craniotomy. In the surgical bed within the t emporal lobe there is a 2.6 cm peripherally enhancing mass with marked vasogenic edema of the tempora l lobe extending into the occipital lobe. There is no shift of the midline structures. No other abnormal areas of pathological enhancement are seen. The intraorbital contents appear normal and symmetric. Visualized paranasal sinuses and mastoid air cells are well aerated. IMPRESSION Recurrent 2.6 cm peripherally enhancing mass with vasogenic edema of the temporal lobe extending into the occipital lobe as described above. Finding is consistent with metastatic disease in this patient with a prior history of lung cancer.
== END | disposition home or self-care (01) ==
LOC: RADCTMAIN 10:04
PROVIDERS: ATTEND Internal Medicine Hematology & Oncology
DX: C34.32 Malignant neoplasm of lower lobe, left bronchus or lung
CPT/HCPCS: 36415; 70460; 82565; 84520

== ENCOUNTER → 2024-02-03 | Outpatient (CLI) | payer MEDICARE ==
--- NOTE | 2024-02-03 16:59 | PE ---
EXAMINATION TYPE: PET CT fusion skull to thigh DATE OF EXAM: 02/03/2024 CLINICAL INDICATION:Male, 68 years old with history of C34.32 Lung Ca; TECHNIQUE: Following the intravenous administration of 13.94 mCi of F-18 FDG, whole body images are performed from the skull base to the midthigh. Images are reviewed on the computer in the coronal, axial, and sagittal planes. Reconstructed rotating images are created on independent workstation and reviewed on the computer. A non-contrast CT is performed in conjunction with the PET scan. Glucose level 87 mg/dL CT DLP: 307.03 mGycm, Automated exposure control for dose reduction was used. COMPARISON: CT 07/30/2023, 01/27/2024, 12/16/2023, 09/28/2023, PET/CT 09/15/2023, MRI: 09/14/2023, 08/03/2023 FINDINGS: Mediastinal SUV mean is 1.8. Hepatic parenchyma SUV mean is 2.3. SKULL BASE AND NECK: Photopenic defect in the left temporal region from prior resection. Remaining b rain demonstrates symmetric uptake. MRI is more sensitive for detecting brain metastasis. Physiologic symmetric uptake within the lung base and vocal cords. No other suspicious radiotracer uptake. CHEST, MEDIASTINUM, AND HILAR REGION: Increased size of 4.8 x 4.4 cm left posterior upper lung mass with a maximum SUV of 14.9. Previously measured 3.6 x 2.9 cm with a maximum SUV of 9.1. New left lower lobe pleural-based nodularity with exams including a medial left nodule measuring 3.2 x 1.5 cm with a maximum SUV of 13.9. Additional example includes a left lower lung pleural-based 1.8 cm nodule with a maximum SUV of 9.6. Stable lateral right upper lobe 1 cm pulmonary nodule with a maximum SUV of 8.0, previously 3.4. New prevascular space 0.7 cm lymph node with a maximum SUV of 7.5. Increased size of AP window lymph node measuring 1.8 cm, previously 1 cm. This demonstrates a maximum SUV of 8.3, previously 5.1. Enlarged left mammary lymph node measuring 0.8 cm short axis with a maximum SUV of 7.2. Medial left upper lobe new 1.2 cm pulmonary nodule with a maximum SUV of 12.7. ABDOMEN AND PELVIS: No suspicious radiotracer activity. MUSCULOSKELETAL STRUCTURES: No suspicious radiotracer activity. Mild radiotracer uptake most pronounced along the umbilical hernia mesh and left L4-L5 pedicular liz. Doubtful clinical significance. Attention on follow up exam. OTHER CT: Postsurgical changes of left temporal bone craniotomy. Similar single focus of gas identifi ed within the left temporal lobe region. Thyroid goiter with multiple hypodense nodules identified. L eft chest wall to lead cardiac pacemaking device. Mildly enlarged heart. Calcified mediastinal lymph nodes. Post cholecystectomy changes. Umbilical hernia mesh changes. Mild atherosclerotic calcificatio n of the aorta and its branches. Pelvic phleboliths. Prostate calcifications. Postsurgical changes fr om L4-L5 fusion. IMPRESSION: 1. Progression of disease with increasing size of left lung primary lung mass now measuring 4.8 cm, previously 3.6 cm. Mass demonstrates increased radiotracer uptake compared to prior PET/CT. 2. Multiple new FDG avid pleural metastatic nodularity throughout the left lung with increased radio tracer uptake within a single right upper lobe pulmonary nodule compared to prior exam. 3. New and/or enlarging mediastinal and left mamillary FDG avid metastatic lymph nodes. 4. Stable photopenic regions within the left temporal lobe from prior surgical intervention of metas tasis. MRI is more sensitive for detection of brain metastasis.
== END | disposition home or self-care (01) ==
LOC: RADPETMAIN 07:39
PROVIDERS: ATTEND Internal Medicine
DX: C34.32 Malignant neoplasm of lower lobe, left bronchus or lung
CPT/HCPCS: 78815

== ENCOUNTER 2024-03-07 12:25 | Day surgery (SDC) | payer MEDICARE ==
[~2024-03-07 12:25] MED LIST changes: -ACETAMINOPHEN TAB 500 MG TAB PO PRN; -GABAPENTIN 300 MG CAP PO PRN; +LIDOCAINE 1% (10MG/ML) FOR IV START INTRADERMA PRN; -ONDANSETRON 4 MG/2 ML VIAL IVP PRN; -TRANEXAMIC ACID IN NACL,ISO-OS 1,000 MG in SALINE 1 100ML.BAG IVPB PRN
[2024-03-07 13:08] VITALS: TEMP 97.7
[2024-03-07] MEDS: IV FLUID CONTINUATION 1,000 ML IV ONE (13:08)
[2024-03-07] MEDS: LACTATED RINGERS 1,000 ML IV SCH (13:38)
[2024-03-07] MEDS ORDERED: LIDOCAINE 1% INJ 10MG/ML (20 ML MDV) ONE (14:05)
[2024-03-07] MEDS ORDERED: PROPOFOL 10 MG/ML 20 ML VIAL IV ONE (14:05)
--- NOTE | 2024-03-07 14:27 | P.PCN ---
Date of Procedure: 03/07/24 Procedure(s) Performed: BRIEF HISTORY: Patient is a 68-year-old pleasant -[place] male scheduled for an elective colonoscopy as a part of evaluation of abdominal weight loss of 30 pounds in the last 6 months duration PROCEDURE PERFORMED: Attempted colonoscopy. PREOPERATIVE DIAGNOSIS: Weight loss. IV sedation per Anesthesia. PROCEDURE: After informed consent was obtained, the patient, was brought into the endoscopy unit. IV sedation was administered by Anesthesia under continuous monitoring. Digital rectal examination was normal. Initially the Olympus CF-160 flexible video colonoscope was then inserted in the rectum, gradually advanced into the colon and further advancement was not possible because of extremely poor prep with solid stool encountered in this area. The procedure was terminated and the patient tolerated the procedure well. IMPRESSION: Colonoscopy aborted because of extremely poor prep RECOMMENDATIONS: Findings of this examination were discussed with the patient as well as his family. He will be scheduled for a colonoscopy with a 2-day prep..
[2024-03-07 14:49] VITALS: PULSE 87
[2024-03-07 14:51] VITALS: BP 112/73; RESP 16
== END 2024-03-07 15:12 | disposition home or self-care (01) ==
LOC: ORWHC2ENDO 12:25
PROVIDERS: ATTEND Internal Medicine Gastroenterology
DX: R63.4 Abnormal weight loss (principal); I10 Essential (primary) hypertension; I25.10 Atherosclerotic heart disease of native coronary artery without angina pectoris; F17.200 Nicotine dependence, unspecified, uncomplicated; Z95.0 Presence of cardiac pacemaker; M54.50 Low back pain, unspecified; C34.90 Malignant neoplasm of unspecified part of unspecified bronchus or lung; Z89.511 Acquired absence of right leg below knee; Z79.899 Other long term (current) drug therapy; Z88.0 Allergy status to penicillin; Z88.6 Allergy status to analgesic agent; Z79.891 Long term (current) use of opiate analgesic
CPT/HCPCS: 45330; J2003; J2704; 45378

== ENCOUNTER → 2024-04-04 | Outpatient (CLI) | payer MEDICARE ==
--- NOTE | 2024-04-04 08:18 | US ---
EXAMINATION TYPE: US liver DATE OF EXAM: 04/04/2024 COMPARISON: PET, CT CLINICAL INDICATION: Male, 68 years old with history of K74.60 CIRRHOSIS OF LIVER; cirrhosis TECHNIQUE: Grayscale and color Doppler imaging of the right upper quadrant was performed. FINDINGS: EXAM MEASUREMENTS: Liver Length: 12.4 cm Gallbladder Wall: Surgically absent CBD: 1.1 cm Right Kidney: 11.2x3.9x5.5 cm INDEPENDENT CROP CONSULTANT NOTES: Pancreas: duct dilated to 4mm Liver: intraductal dilation no suspicious solid masses. Gallbladder: Surgically absent Evidence for sonographic Vela's sign: No CBD: dilated to 1.1cm, large hyperechoic area: 1.3x0.6cm Right Kidney: inf pole cystic area: 3.1x1.8x2.6cm exam limited by bowel gas IMPRESSION: Intrahepatic ductal dilation with extrahepatic ductal dilation. Suspected stone/choledocholithiasis. MRI with MRCP recommended for further evaluation for choledocholithiasis. [facility], , 04/04/2024 8:16 AM
== END | disposition home or self-care (01) ==
LOC: RADUSWWP 07:04
PROVIDERS: ATTEND Internal Medicine Gastroenterology
DX: K74.60 Unspecified cirrhosis of liver (principal); Q61.9 Cystic kidney disease, unspecified
CPT/HCPCS: 76705

== ENCOUNTER 2024-05-15 13:31 | Emergency (ER) | payer MEDICARE, OTHER ==
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
[2024-05-15] MEDS: HYDROmorphone 1 MG/ML 1 ML SYRINGE IM STA ×2 (14:11→14:40)
[2024-05-15] MEDS: ACET/COD 300 MG/30 MG STARTER PACK 6 TAB BTL PO STA (14:39)
[2024-05-15] MEDS: HYDROcodone/APAP 10-325MG 1 EACH TAB PO ONE (14:41)
[2024-05-15 14:48] VITALS: BP 120/83; PULSE 86; RESP 17; TEMP 98.6
== END 2024-05-15 14:48 | disposition home or self-care (01) ==
LOC: EC 13:31
DX: G89.29 Other chronic pain (principal); M54.9 Dorsalgia, unspecified; F17.200 Nicotine dependence, unspecified, uncomplicated; Z88.6 Allergy status to analgesic agent; Z88.0 Allergy status to penicillin
CPT/HCPCS: 99283; 96372 ×2; J1171

== ENCOUNTER → 2024-05-17 | Outpatient (CLI) | payer MEDICARE, OTHER ==
[2024-05-17 11:54] LABS: African American GFR (CKD) >90 (>60 ml/min/1.73 sqM); Blood Urea Nitrogen 14 mg/dL (9-20); Non-African American GFR(CKD) >90 (>60 ml/min/1.73 sqM)
--- NOTE | 2024-05-17 16:37 | CT ---
EXAMINATION TYPE: CT ChestAbdPelvis wo con CT DLP: 376.6 mGycm, Automated exposure control for dose reduction was used. DATE OF EXAM: 05/17/2024 2:05 PM COMPARISON: PET CT 02/03/2024, 09/15/2023, CT abdomen and pelvis 03/12/2021 CLINICAL INDICATION:Male, 68 years old with history of C34.32 LUNG CANCER; PHH, Met Cancer. Technique: Multiple axial images of the chest, abdomen, and pelvis were obtained without the administ ration intravenous contrast limits evaluation. Oral contrast was administered. Two-dimensional calderon l and sagittal reconstructions were obtained. Findings: CHEST: LUNGS/ PLEURA: Biapical pleural-parenchymal scarring. Stable peripheral lateral right upper lobe 9 m m pulmonary nodule (series 5, image 20). Decreased size of left lower lobe pulmonary mass measuring 4 .0 x 1.4 centers, previously 4.8 x 4.4 cm. Decreased size of left upper lobe 0.7 cm pulmonary nodule (series 4, image 33), previously 1.2 cm. Decreased size of left lower lobe lateral pulmonary nodules now measuring up to 0.7 cm, previously measured up to 1.1 cm. Decreased size of left lower lung pleur al nodularity. Mild centrilobular emphysematous changes. No pleural effusion or pneumothorax. No foca l consolidation. AIRWAY: Patent and unremarkable.. HEART: Size within normal limits.No pericardial effusion. Small coronary calcifications. Left chest w all to the cardiac pacemaking device with leads terminating in the right atrium and right ventricle. MEDIASTINUM: Calcified mediastinal lymph node. Evaluation for mediastinal and hilar adenopathy is sig nificantly limited due to lack of intravenous contrast. 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 SOFT TISSUES/LYMPH NODES: Surgical clips within the right axilla again. LOWER NECK: Enlarged thyroid gland with redemonstration of a 1.7 cm hypodense right thyroid lobe nodu le. Consider further evaluation with thyroid ultrasound. ABDOMEN: ABDOMEN LIVER: Unremarkable noncontrast appearance. GALLBLADDER AND BILE DUCTS: The gallbladder is surgically absent. PANCREAS: Unremarkable noncontrast appearance. SPLEEN: Unremarkable noncontrast appearance. ADRENAL GLANDS: Unremarkable noncontrast appearance.. KIDNEYS AND URETERS: No evidence of hydronephrosis or renal calculus. Right renal 2.9 cm cyst. PELVIS BLADDER: Unremarkable noncontrast appearance. REPRODUCTIVE: Coarse calcifications of the prostate gland are identified. ABDOMEN & PELVIS STOMACH AND BOWEL: Small hiatal hernia, duodenum is unremarkable. Enteric contrast reaches the distal small bowel. No gross evidence of focal bowel wall thickening or surrounding inflammatory changes. N o evidence of bowel obstruction. PERITONEUM: No evidence of pneumoperitoneum or free fluid. VASCULATURE: Mild atherosclerotic calcifications are present throughout the abdominal aorta and its b ranches. No abdominal aortic aneurysm. Pelvic phleboliths. MUSCULOSKELETAL: No acute osseous abnormalities. No aggressive osseous lesion. Postsurgical changes f rom posterior lumbar fusion with bilateral pedicular screws and rods and disc spaces involving L4-L5. LYMPH NODES: No gross evidence for lymphadenopathy. SOFT TISSUE/ABDOMINAL WALL: Post surgical changes from hernia repair with mesh at the umbilicus. IMPRESSION: Positive response to therapy with decreased size of left lower lobe pulmonary mass and additional pul monary nodules/pleural nodules from prior PET/CT. [facility], , 05/17/2024 4:34 PM
== END | disposition home or self-care (01) ==
LOC: RADCTMAIN 10:52
PROVIDERS: ATTEND Internal Medicine Hematology & Oncology
DX: I10 Essential (primary) hypertension (principal); K86.2 Cyst of pancreas; C34.32 Malignant neoplasm of lower lobe, left bronchus or lung; M12.9 Arthropathy, unspecified; R56.9 Unspecified convulsions; R91.8 Other nonspecific abnormal finding of lung field
CPT/HCPCS: 36415; 71250; 74176; 82565; 84520

== ENCOUNTER 2024-06-20 11:37 | Emergency (ER) | payer MEDICARE, OTHER ==
[2024-06-20 11:42] VITALS: BP 118/76; PULSE 80; RESP 18
[2024-06-20 11:47] VITALS: TEMP 98.1
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
[2024-06-20] MEDS: ACET/COD 300 MG/30 MG STARTER PACK 6 TAB BTL PO STA (12:10)
[2024-06-20] MEDS: HYDROcodone/APAP 10-325MG 1 EACH TAB PO ONE (12:10)
== END 2024-06-20 12:46 | disposition home or self-care (01) ==
LOC: EC 11:37
DX: G89.29 Other chronic pain (principal); M54.50 Low back pain, unspecified; F17.200 Nicotine dependence, unspecified, uncomplicated; Z88.0 Allergy status to penicillin; Z88.6 Allergy status to analgesic agent
CPT/HCPCS: 99283

== ENCOUNTER 2024-07-17 13:05 | Emergency (ER) | payer MEDICARE, OTHER ==
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
[2024-07-17] MEDS: HYDROcodone/APAP 10-325MG 1 EACH TAB PO ONE (14:20)
[2024-07-17 14:33] VITALS: BP 132/75; PULSE 79; RESP 16; TEMP 98.9
== END 2024-07-17 14:33 | disposition home or self-care (01) ==
LOC: EC 13:05
DX: M54.9 Dorsalgia, unspecified (principal); Z76.0 Encounter for issue of repeat prescription; F17.200 Nicotine dependence, unspecified, uncomplicated
CPT/HCPCS: 99283

== ENCOUNTER → 2024-07-19 | Outpatient (CLI) | payer MEDICARE, OTHER ==
[2024-07-19 10:50] LABS: HCT 34.7 % (39.6-50.0); HGB 11.1 g/dL (13.0-17.0); MCH 30.8 pg (27.0-32.0); MCV 96.4 FL (80.0-97.0); Mean Platelet Volume 9.8 FL (9.5-12.2); NRBC Per 100 WBC 0 X 10*3/uL (0.00-0.01); Platelet Count 327 X 10*3/uL (140-440); RDW 16.6 % (11.5-14.5); WBC 4.23 X 10*3/uL (4.50-10.00)
[2024-07-19 10:52] LABS: ALT 12 U/L (10-49); AST 31 U/L (14-35); Albumin 4.2 g/dL (3.8-4.9); Albumin/Globulin Ratio 1.24 Ratio (1.60-3.17); Alkaline Phosphatase 126 U/L (41-126); Blood Urea Nitrogen 7.1 mg/dL (9.0-27.0); Calcium 9.8 mg/dL (8.7-10.3); Carbon Dioxide 29.9 mmol/L (21.6-31.8); Chloride 104 mmol/L (96-109); Globulin 3.4 g/dL (1.6-3.3); Glucose 88 mg/dL (70-110); Potassium 5.7 mmol/L (3.5-5.5); Sodium 141 mmol/L (135-145); Total Bilirubin 0.3 mg/dL (0.3-1.2); Total Protein 7.6 g/dL (6.2-8.2)
[2024-07-19 10:58] LABS: Alpha Fetoprotein, Tumor Mkr <3.00 ng/mL (0.00-7.90)
== END | disposition home or self-care (01) ==
LOC: LABWHC1 07:19
PROVIDERS: ATTEND Nurse Practitioner Family
DX: K74.60 Unspecified cirrhosis of liver (principal); B18.2 Chronic viral hepatitis C
CPT/HCPCS: 36415; 80053; 82105; 85027; 87522

== ENCOUNTER → 2024-08-27 | Outpatient (CLI) | payer MEDICARE, OTHER ==
--- NOTE | 2024-08-27 09:19 | US ---
EXAMINATION TYPE: US liver DATE OF EXAM: 08/27/2024 COMPARISON: US(04/04/2024), CT 05/17/2024 CLINICAL INDICATION: Male, 69 years old with history of K74.60 UNSPEC CIRRHOSIS OF LIVER; TECHNIQUE: Grayscale and color Doppler imaging of the right upper quadrant. FINDINGS: EXAM MEASUREMENTS: Liver Length: 13.2 cm Gallbladder Wall: Surgically absent CBD: 1.1 cm, color Doppler imaging was utilized to isolate the common bile duct for measurement. Nor mal 1.0 cm in a postcholecystectomy patient. Right Kidney: 11.3x4.1x6.6 cm GROVE WORKER NOTES: limited exam due to overlying bowel/rib shadow Pancreas: dilated duct: 0.5cm Liver: intrahepatic ductal dilation Gallbladder: Surgically absent Evidence for sonographic Vela's sign: No CBD: dilated: 1.1cm . Pt had prior echogenic area seen within CBD on prior US(04/04/2024), not seen on today's study, unable to follow dilated CBD completely to panc head due to overlying romy l/gas Right Kidney: Multiple anechoic areas seen: Largest: 1. 2.4x2.6x2.9cm 2. 1.0x0.9x1.2cm 3. 1.2x0.8x1.0cm IMPRESSION: 1. Dilated pancreatic duct. Additional workup recommended. Consider CT or MRI with pancreas protocol or ERCP. 2. Previous echogenic foci within the common duct was not identified on the current examination. 3. Right renal cysts. [facility], , 08/27/2024 9:17 AM
== END | disposition home or self-care (01) ==
LOC: RADUSWWP 07:10
PROVIDERS: ATTEND Internal Medicine Gastroenterology
DX: K74.60 Unspecified cirrhosis of liver (principal); N28.1 Cyst of kidney, acquired; K86.89 Other specified diseases of pancreas
CPT/HCPCS: 76705

== ENCOUNTER → 2024-09-18 | Outpatient (CLI) | payer MEDICARE, OTHER ==
[2024-09-18 10:50] LABS: African American GFR (CKD) >90 (>60 ml/min/1.73 sqM); Blood Urea Nitrogen 7 mg/dL (9-20); Non-African American GFR(CKD) >90 (>60 ml/min/1.73 sqM)
--- NOTE | 2024-09-18 13:02 | CT ---
EXAMINATION TYPE: CT ChestAbdPelvis w con DATE OF EXAM: 09/18/2024 12:06 PM COMPARISON: 05/17/2024 CLINICAL INDICATION: Male, 69 years old with history of C34.32 LUNG CANCER; PH[facility], LUNG CA Technique: CT of the chest, abdomen, and pelvis after IV contrast. Delayed images through the kidneys and coronal/sagittal reconstructions performed. Contrast used:100 mL of Isovue 300 with IV Contrast, (None if empty) Oral contrast used: with Oral Contrast CT DLP: 1115 mGycm, Automated exposure control for dose reduction was used. Findings: CHEST: Heterogeneous 2.1 cm posterior left thyroid lobe nodule for which further evaluation with thyroid ult rasound is recommended. Left anterior chest wall pacemaker generator with right atrial and right ventricular leads. Heart upper limits of normal in size without pericardial effusion. Ectatic ascending aorta at 3.8 cm. Conventional arterial branching anatomy. Ectatic lower descending thoracic aorta 2.8 cm. 1.2 cm AP window lymph node versus 1.0 cm, previously. Calcified precarinal lymph node unchanged. Otherwise, no thoracic lymphadenopathy by CT size criteria. Mild diffuse bronchial wall thickening. Moderate upper lung predominant emphysematous change. Right a pical pleural-parenchymal scarring. Left infrahilar superior segment left lower lobe mass currently 2.9 x 1.4 cm estimated at 2.7 x 1.7 c m, previously, not significantly changed. A subpleural pulmonary nodule lateral right upper lobe currently 7 mm not significantly changed. A few scattered 5 mm and smaller nodules left mid and lower lung remain unchanged. New 1 cm inferior lingular pulmonary nodule, image 44. No consolidation or pleural effusion. Abdomen: Mild prominence to the intrahepatic and extra hepatic biliary system likely due to chronic postcholec ystectomy status. The paucity of intra-abdominal fat limits assessment for mesenteric and retroperitoneal adenopathy. Bilateral renal cortical cysts measuring up to 2.6 cm on the right. Otherwise, liver, adrenal glands, diminutive spleen, and pancreas show no gross abnormality. No dilated small bowel, free fluid, or free air. Oral contrast progressed into the proximal sigmoid colon. There is prominent stool distending the rec akua up to 7.7 cm wide. Correlate to exclude fecal impaction or constipation. Pelvis: Numerous pelvic phleboliths. Prostate calcifications.. Prostate gland is borderline to mildly enlarge d at 4.6 cm wide. Bladder partially distended. No evident pelvic adenopathy or abnormal fluid collect ion in the pelvis. Bones: Mild degenerative change of the hips. Patient status post L4-L5 posterior and interbody lumbar fusion no osseous destructive process. IMPRESSION: 1. COPD with moderate emphysema. A left infrahilar mass is relatively stable at 2.9 x 1.4 cm. A few s cattered nodules measuring up to 7 mm also remain unchanged. 2. However, an AP window lymph node appears minimally larger at 1.2 cm versus 1.0 cm, previously. In addition, there may be a new 1 cm inferior lingular pulmonary nodule. Ongoing close surveillance foll ow-up recommended to exclude early progression. 3. Thyroid ultrasound can further assess a 2.1 cm posterior left thyroid lobe nodule. 4. Prominent solid stool distending the rectum. Correlate for any constipation/fecal impaction. [facility], Workstation: [facility], 09/18/2024 1:00 PM
== END | disposition home or self-care (01) ==
LOC: RADCTMAIN 10:04
PROVIDERS: ATTEND Internal Medicine Hematology & Oncology
DX: K86.2 Cyst of pancreas (principal); R56.9 Unspecified convulsions; I10 Essential (primary) hypertension; D61.810 Antineoplastic chemotherapy induced pancytopenia; J44.9 Chronic obstructive pulmonary disease, unspecified; K62.3 Rectal prolapse; J43.9 Emphysema, unspecified
CPT/HCPCS: 82565; 84520; 71260; 74177; 36415; Q9967

== ENCOUNTER → 2024-11-19 | Outpatient (CLI) | payer MEDICARE, OTHER ==
[2024-11-19 15:15] LABS: African American GFR (CKD) >90 (>60 ml/min/1.73 sqM); Blood Urea Nitrogen 4 mg/dL (9-20); Non-African American GFR(CKD) >90 (>60 ml/min/1.73 sqM)
--- NOTE | 2024-11-19 21:43 | CT ---
EXAMINATION TYPE: CT chest w con CT DLP: 302 mGycm, Automated exposure control for dose reduction was used. DATE OF EXAM: 11/19/2024 4:07 PM COMPARISON: CT chest and pelvis 09/18/2024, 05/17/2024, head CT 02/03/2024, 09/15/2023 CLINICAL INDICATION:Male, 69 years old with history of C34.32 MALIGNANT NEOPLASM OF LOWER LOBE, LEFT BRON; PHH, Malignant neoplasm of lower lt lobe TECHNIQUE: Multiple axial images were obtained through the chest following the administration of 100 cc of Isovue 300. . Coronal and sagittal reformats reviewed. FINDINGS: LUNGS/ PLEURA: No pleural effusion or pneumothorax. Mild centrilobular emphysematous changes. Left in ferior hilar superior segment left lower lobe mass measuring 2.2 x 0.9 cm, previously measured 4.0 x 1.4 cm. Stable right upper lobe peripheral 9 mm subpleural nodule (series 4, image 19). Previously FD G avid on prior PET/CT. Few scattered 5 mm smaller pulmonary nodules. No new or enlarging pulmonary n odules. Stable minimal right apical pleural parenchymal scarring. AIRWAY: Patent and unremarkable.. HEART: Size within normal limits. . No pericardial effusion. No significant coronary artery calcifica tions. Left anterior chest wall pacemaker generator with leads terminating in the right atrium, mckenna nary sinus and right ventricle. MEDIASTINUM: Precarinal calcified lymph nodes redemonstrated. Stable enlarged 1.2 cm short axis AP wi ndow lymph node. No new adenopathy. VASCULATURE: No aortic aneurysm. Ectasia of the aortic root measuring up to 3.8 cm. Ectasia of a sen ding thoracic aorta measuring up to 3.9 cm. MUSCULOSKELETAL: No acute osseous abnormalities. No aggressive osseous lesion. SOFT TISSUES/LYMPH NODES: Unremarkable. LOWER NECK: Enlarged multinodular thyroid gland redemonstrated. Stable posterior left thyroid lobe 2. 0 cm hypodense nodule. UPPER ABDOMEN: Gallbladder is surgically absent with expected intra and extra hepatic biliary duct di latation. Left renal subcentimeter cyst. No follow-up recommended. IMPRESSION: Positive response to therapy with decreasing size of left lower lobe hilar mass. Stable mildly enlarg ed AP window lymph node. Additional small pulmonary nodules are stable. No new or enlarging pulmonary nodules or adenopathy. [facility] Reciotation: [id number], 11/19/2024 9:41 PM
== END | disposition home or self-care (01) ==
LOC: RADCTMAIN 14:03
PROVIDERS: ATTEND Internal Medicine Hematology & Oncology
DX: C34.32 Malignant neoplasm of lower lobe, left bronchus or lung (principal); K86.2 Cyst of pancreas; D61.810 Antineoplastic chemotherapy induced pancytopenia; I10 Essential (primary) hypertension; R56.9 Unspecified convulsions; R59.9 Enlarged lymph nodes, unspecified; R91.8 Other nonspecific abnormal finding of lung field
CPT/HCPCS: 82565; 84520; 71260; 36415; Q9967

== ENCOUNTER → 2024-12-12 | Outpatient (CLI) | payer MEDICARE, OTHER ==
--- NOTE | 2024-12-12 19:32 | CT ---
EXAMINATION TYPE: CT lumbar spine wo con CT DLP: 399.8 mGycm, Automated exposure control for dose reduction was used. DATE OF EXAM: 12/12/2024 7:08 PM COMPARISON: CT chest abdomen and pelvis 09/18/2024, CT lumbar spine 12/17/2023, 09/28/2023. CLINICAL INDICATION:Male, 69 years old with history of M62.81 MUSCLE WEAKNESS, M54.50 LBP; PHH, back pain, weakness, pain TECHNIQUE: Multiple axial images were obtained from the midportion of T11 through the sacroiliac darlene nts. Soft tissue and bone windows in coronal and sagittal planes were obtained and reviewed. Contrast used: none. Oral contrast used: none. FINDINGS: Alignment: There are 5 lumbar type vertebral bodies. Minimal grade 1 anterolisthesis at L4 on L5. Mil d levocurvature of the lumbar spine with apex at L4. Bone: No evidence of acute fracture is identified. Post surgical changes with bilateral pedicular sc rews and rods involving L4-L5. Interventricular disc spacer identified at this level. Left-sided lami nectomy defect. Hardware appears intact with appropriate alignment. Hardware creates streak artifact which limits evaluation. Bony fragment is again seen posterior to the right pedicular liz at the L5 l evel within the paravertebral musculature. Discs: T12-L1: No spinal canal or neural foraminal stenosis is identified. L1-L2: No spinal canal or neural foraminal stenosis is identified. L2-L3: Mild broad-based disc bulge with ligamentum flavum buckling and bilateral facet arthropathy. N o significant spinal canal or neural foraminal stenosis. L3-L4: Mild broad-based disc bulge. Ligamentum flavum buckling and bilateral facet arthropathy. No si gnificant spinal canal stenosis. Mild bilateral neural foraminal stenosis. L4-L5: Postsurgical changes without gross evidence for significant spinal canal stenosis. Right-sided facet arthropathy. Moderate right neural foraminal stenosis. Mild left neural foraminal stenosis. L5-S1: Broad-based disc bulge without significant spinal canal stenosis. Bilateral facet arthropathy. Mild right neuroforaminal stenosis. [id number] left neural foraminal stenosis. Other: Partial visualization of cardiac pacemaking leads. Linear scarring within the left lung base. Cholecystectomy clips in the right upper quadrant. Punctate nonobstructing right renal calculus. Righ t renal cyst redemonstrated. No follow up recommended. IMPRESSION: 1. No evidence for acute spinal fracture. 2. Postoperative changes from fusion at L4-L5 redemonstrated. Hardware appears intact. 3. Similar multilevel degenerative disc disease and facet arthropathy as described above. [facility], , 12/12/2024 7:29 PM
== END | disposition home or self-care (01) ==
LOC: RADCTMAIN 18:42
PROVIDERS: ATTEND Orthopaedic Surgery
DX: M51.360 Other intervertebral disc degeneration, lumbar region with discogenic back pain only (principal); M47.816 Spondylosis without myelopathy or radiculopathy, lumbar region; M43.26 Fusion of spine, lumbar region; Z98.1 Arthrodesis status
CPT/HCPCS: 72131